=== PATIENT | male | born 1940 | race Caucasian/White ===

== ENCOUNTER → 2016-10-29 | Outpatient (CLI) | payer MEDICARE, OTHER ==
[~2016-10-29] MED LIST: ASPCH81X PO; ATOR80TA PO; DOXY25TA7 PO; FERR325T74 PO; HYDR-4380 PO; IBUP-103 PO; INSUINJ4 SQ; LISI-725 PO; METF-384 PO; MISCTAB78 PO; MULTCHW PO; NTRGSL/4 UT; NVLGI SC; OMEGCAP2 PO; OMEP20CA9 PO; VITA400C28 PO
[2016-10-29 17:45] LABS: BASO % 0.3 %; BASO ABS # 0.02 K/uL (0-0.2); COMPLETE YES; EOS % 2.8 %; HEMATOCRIT 40.2 % (42-52); IG% 0.2 %; LYMPH % 29.7 %; LYMPH ABS # 1.79 K/uL (1.2-3.4); MEAN CELL VOLUME 93.3 fL (80-100); MEAN CORPUSCULAR HEMOGLOBIN 31.1 pg (25-34); MEAN CORPUSCULAR HGB CONC 33.3 g/dl (32-36); MEAN PLATELET VOLUME 10.3 fL (7.4-10.4); MONO % 5.6 %; NEUT % 61.4 %; PLATELET COUNT 140 K/uL (130-400); RED BLOOD COUNT 4.31 M/uL (4.7-6.1); WHITE BLOOD COUNT 6.03 K/uL (4.8-10.8)
[2016-10-29 18:14] LABS: BLOOD UREA NITROGEN 21 mg/dl (7-18); BUN/CREATININE RATIO 20.6 (10-20); CALCIUM 9.1 mg/dl (8.5-10.1); CARBON DIOXIDE 29 mmol/L (21-32); CHLORIDE 108 mmol/L (98-107); GLUCOSE 113 mg/dl (70-99); POTASSIUM 4.5 mmol/L (3.5-5.1); SODIUM 143 mmol/L (136-145)
[2016-10-29 18:21] LABS: % FREE PSA 24.7 %; FREE PSA 2.09 ng/ml
[2016-10-30 06:20] LABS: ESTIMATED AVERAGE GLUCOSE 154 mg/dl; HA1C FLAG Normal (Normal)
--- NOTE | 2016-11-26 10:51 | CODING QUERY MEDICAL NECESSITY ---
SUPPORTING DIAGNOSIS NEEDED Mack ALVAREZ, A supporting diagnosis is required for the test/procedure performed on this patient in order for us to be reimbursed by the patient's insurance. Please provide a supporting diagnosis for the following test/procedure listed below next to the test name along with your signature. *If there is no additional diagnosis for this patient that would support the following test/procedure please document that below next to the test/procedure. Test(s)/Procedure(s) that require a supporting diagnosis: * 28526 PSA DIAGNOSIS: DATE OF SERVICE: 10/29/16 Provider Signature: Date: Thank you Hermilo Lynch [facility] Information Management Once completed, please kindly fax back to [phone] For questions please call [phone]
== END | disposition home or self-care (01) ==
LOC: C.LABBFT 15:52
PROVIDERS: ATTEND Physician Assistant Medical
DX: N52.9 Male erectile dysfunction, unspecified (principal); E11.65 Type 2 diabetes mellitus with hyperglycemia; D64.9 Anemia, unspecified; N40.1 Benign prostatic hyperplasia with lower urinary tract symptoms

== ENCOUNTER → 2017-03-09 | Outpatient (CLI) | payer MEDICARE ==
[2017-03-10 07:49] LABS: ESTIMATED AVERAGE GLUCOSE 183 mg/dl; HA1C FLAG Normal (Normal)
== END | disposition home or self-care (01) ==
LOC: C.LABBFT 12:42
PROVIDERS: ATTEND Internal Medicine
DX: E11.65 Type 2 diabetes mellitus with hyperglycemia (principal)

== ENCOUNTER → 2017-03-25 | Outpatient (CLI) | payer MEDICARE | END | disposition home or self-care (01) | LOC: C.PATHSPEC 17:18 | PROVIDERS: ATTEND Urology | DX: R97.20 Elevated prostate specific antigen [PSA] (principal) ==

== ENCOUNTER → 2017-07-13 | Outpatient (CLI) | payer MEDICARE ==
[2017-07-13 17:52] LABS: BASO % 0.4 %; BASO ABS # 0.02 K/uL (0-0.2); COMPLETE YES; HEMATOCRIT 39.1 % (42-52); LYMPH % 38.7 %; LYMPH ABS # 2.03 K/uL (1.2-3.4); MEAN CELL VOLUME 95.8 fL (80-100); MEAN CORPUSCULAR HEMOGLOBIN 30.6 pg (25-34); MEAN PLATELET VOLUME 11.3 fL (7.4-10.4); MONO % 7.6 %; NEUT % 48.3 %; PLATELET COUNT 130 K/uL (130-400); RED BLOOD COUNT 4.08 M/uL (4.7-6.1); WHITE BLOOD COUNT 5.25 K/uL (4.8-10.8)
[2017-07-13 18:05] LABS: ALT/SGPT 42 U/L (12-78); AST/SGOT 31 U/L (15-37); BLOOD UREA NITROGEN 20 mg/dl (7-18); BUN/CREATININE RATIO 20.1 (10-20); CALCIUM 9.1 mg/dl (8.5-10.1); CARBON DIOXIDE 28 mmol/L (21-32); CHLORIDE 106 mmol/L (98-107); CREATININE 0.98 mg/dl (0.60-1.40); GLUCOSE 103 mg/dl (70-99); HDL CHOLESTEROL 49 mg/dl; SODIUM 139 mmol/L (136-145)
[2017-07-13 18:07] LABS: ALB/GLOB RATIO 1.1 (0.9-2); ALKALINE PHOSPHATASE 57 U/L (45-117); CHOLESTEROL 113 mg/dl (0-200); CHOLESTEROL/HDL RATIO 2.3; LDL CHOLESTEROL CALCULATED 44 mg/dl; TRIGLYCERIDES 99 mg/dl (0-150); VERY LOW DENSITY LIPOPROT CALC 20 mg/dl
[2017-07-13 18:36] LABS: RATIO 22.6 mcg/mg (0-30.0)
[2017-07-14 06:37] LABS: ESTIMATED AVERAGE GLUCOSE 151 mg/dl; HA1C FLAG Normal (Normal)
== END | disposition home or self-care (01) ==
LOC: C.LABBFT 11:47
PROVIDERS: ATTEND Internal Medicine
DX: E78.5 Hyperlipidemia, unspecified (principal); E11.65 Type 2 diabetes mellitus with hyperglycemia

== ENCOUNTER → 2017-10-12 | Day surgery (SDC) | payer MEDICARE ==
[2017-09-17 15:22] VITALS: Ht 181.6 cm; Wt 90.9 kg
[~2017-10-12] VITALS: Ht 181.6 cm; Wt 90.9 kg
[~2017-10-12] MED LIST changes: +ATEN-175 PO; -ATOR80TA PO; +BIMA0.01 OPB; +BRIM0.1S OPB; +BRIMONIDINE TART 0.2% OP SOLN PER DROP CHARGE OPR ONE; +BRIMONIDINE TARTRATE 0.2% 5ML OP SCH; +BRIMONIDINE TARTRATE 0.2% 5ML OPR SCH; +DORZ1SOL6 OPB; -DOXY25TA7 PO; +FERR1TAB13 PO; -FERR325T74 PO; -IBUP-103 PO; +INSDGI SC; +INSU100I2 SC; -INSUINJ4 SQ; -NVLGI SC; +PILOCARPINE HCL 2% OP SOLN 15 ML BTL ONE; +PILOCARPINE HCL 2% OP SOLN 15 ML BTL OPR SCH; +PROPARACAINE 0.5% OP SOLN PER DROP CHARGE ONE; +PROPARACAINE 0.5% OP SOLN PER DROP CHARGE OPR SCH; +PrednisoLONE ACET 1% OP SUSP 5 ML BTL OP SCH; +PrednisoLONE ACET 1% OP SUSP 5 ML BTL OPR ONE; +ROSU40TA PO; +SILD100T PO; +TERA1CAP PO
[2017-10-12 11:30] VITALS: BP 164/76; PULSE 50; O2SAT 99
--- NOTE | 2017-10-12 11:32 | Discharge Instructions-SurgCtr ---
Discharge Instructions Date of Service Oct 12, 2017. Visit Reason for Visit: Glaucoma Right Eye Discharge Discharge Diagnosis / Problem: glaucoma, right eye Discharge Goals Goal(s): Improve disease control Activity Recommendations Activity Limitations: per Instructions/Follow-up section Anesthesia . Post Anesthesia Instructions: If you have had General Anesthesia or IV Sedation: * Do not drive today. * Resume driving when surgeon permits. * Do not make important decisions or sign legal documents today. * Call surgeon for: 1. Temperature elevations greater than 101 degrees F. 2. Uncontrollable pain. 3. Excessive bleeding. 4. Persistent nausea and vomiting. 5. Medication intolerance (nausea, vomiting or rash). * For nausea and vomiting use only clear liquids such as: tea, soda, bouillon until nausea subsides, then gradually increase diet as tolerated. * If you have any concerns or questions, call your surgeon's office. If physician is unavailable and it is an emergency, call 911 or go to the nearest emergency room. . Instructions / Follow-Up Instructions / Follow-Up ACTIVITY RECOMMENDATIONS: * No limitations RETURN TO SCHOOL/WORK: * No limitations DIET: * No limitations MEDICATIONS: Resume previous medications unless instructed otherwise by your surgeon. * Please use Prednisolone acetate drops prescription given to you at your office appointment as follows: 1 drop in effected eye 4 times a day for 5 days. * Continue all glaucoma drops as usual with no interruption to either eye. SPECIAL CARE INSTRUCTIONS: Call your doctor at with any concerns or problems. FOLLOW UP VISIT: Follow-up with Dr Ortiz in 1 hour. Diet Recommendations Home Diet: resume previous diet Pending Studies Studies pending at discharge: no Medical Emergencies . Who to Call and When: Medical Emergencies: If at any time you feel your situation is an emergency, please call 911 immediately. . Non-Emergent Contact Non-Emergency issues call your: [employer] . . "Provider Documentation" section prepared by Abner Ortiz. .
--- NOTE | 2017-10-12 11:34 | [facility] Operative Report ---
Operative Report Date of Service Oct 12, 2017. Operative Report Diagnosis: Glaucoma right eye Procedure : SLT superior 180 degrees, 1.3 mj, 77 spots Complications: none I attest to the content of the Intraoperative Record and any orders documented therein. Any exceptions are noted below.
== END | disposition home or self-care (01) ==
LOC: X.SURG 10:23
PROVIDERS: ATTEND Ophthalmology
DX: H40.9 Unspecified glaucoma (principal)

== ENCOUNTER → 2018-04-04 | Outpatient (CLI) | payer MEDICARE ==
[~2018-04-04] MED LIST changes: -BRIMONIDINE TART 0.2% OP SOLN PER DROP CHARGE OPR ONE; -BRIMONIDINE TARTRATE 0.2% 5ML OP SCH; -BRIMONIDINE TARTRATE 0.2% 5ML OPR SCH; -PILOCARPINE HCL 2% OP SOLN 15 ML BTL ONE; -PILOCARPINE HCL 2% OP SOLN 15 ML BTL OPR SCH; -PROPARACAINE 0.5% OP SOLN PER DROP CHARGE ONE; -PROPARACAINE 0.5% OP SOLN PER DROP CHARGE OPR SCH; -PrednisoLONE ACET 1% OP SUSP 5 ML BTL OP SCH; -PrednisoLONE ACET 1% OP SUSP 5 ML BTL OPR ONE
== END | disposition home or self-care (01) ==
LOC: C.LABBFT 11:18
PROVIDERS: ATTEND Urology
DX: R97.20 Elevated prostate specific antigen [PSA] (principal)

== ENCOUNTER 2019-05-13 10:44 | Observation (INO) ==
--- NOTE | 2019-05-13 11:20 | XRay Report ---
XR chest 1V portable HISTORY: Atypical Chest Pain COMPARISON: Chest 03/29/2014. FINDINGS: No pneumothorax. No pleural effusions. Left basilar linear densities favor scarring or atel ectasis. Otherwise, no focal lung consolidations to suggest pneumonia. The heart remains borderline e nlarged. There are poststernotomy changes. No evidence for pulmonary edema. IMPRESSION: No significant change compared to the prior study. No acute process. Electronically signed by: Kvng Armando M.D. 05/13/2019 11:19 AM
[2019-05-13 11:41] LABS: INR 1.1 (0.9-1.1); Partial Thromboplastin Ratio 0.9; Partial Thromboplastin Time 24.5 Seconds (21.0-31.0); Prothrombin Time 11.3 Seconds (9.0-12.0)
[2019-05-13 11:42] LABS: Alanine Aminotransferase 45 U/L (12-78); Albumin Level 3.6 gm/dl (3.4-5.0); Aspartate Aminotransferase 51 U/L (15-37); BUN Creatinine Ratio 11.7 (10-20); Blood Urea Nitrogen 13 mg/dl (7-18); Carbon Dioxide 27 mmol/L (21-32); Chloride 105 mmol/L (98-107); Est GFR (Non-African American) 65.6; Glucose 290 mg/dl (70-99); Potassium 3.9 mmol/L (3.5-5.1); Sodium 138 mmol/L (136-145)
[2019-05-13 11:47] LABS: Albumin Globulin Ratio 1.2 (0.9-2); Alkaline Phosphatase 60 U/L (45-117); Bilirubin,Total 0.5 mg/dl (0.2-1); Total Protein 6.6 gm/dl (6.4-8.2); Troponin I 0.025 ng/ml (0-0.045)
[2019-05-13] MEDS ORDERED: NITROGLYCERIN 2% OINTMENT 30GM TUBE EXT ONE (11:55)
[2019-05-13 12:13] LABS: Basophils # (auto) 0.01 K/uL (0-0.2); Basophils % (auto) 0.2 %; Eosinophils # (auto) 0.07 K/uL (0-0.5); Eosinophils % (auto) 1.7 %; Hematocrit (blood only) 32.8 % (42-52); Lymphocytes # (auto) 0.77 K/uL (1.2-3.4); Lymphocytes % (auto) 18.9 %; Mean Corpuscular Hemoglobin 31.1 pg (25-34); Mean Corpuscular Hgb Conc 33.5 g/dL (32-36); Mean Corpuscular Volume 92.7 fL (80-100); Monocytes # (auto) 0.32 K/uL (0.11-0.59); Monocytes % (auto) 7.9 %; Neutrophils % (auto) 71.3 %; Platelet Count 97 K/uL (130-400); Platelet Estimate Decreased (Normal); RDW Coefficient of Variation 13.1 % (11.5-14.5); RDW Standard Deviation 44.3 fL (36.4-46.3); Red Blood Count 3.54 M/uL (4.7-6.1); White Blood Count 4.07 K/uL (4.8-10.8)
[2019-05-13] MEDS ORDERED: ASPIRIN 81 MG CHEW PO STA (13:07)
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
[2019-05-13] MEDS ORDERED: ZOLPIDEM TARTRATE 5 MG TAB PO PRN (14:23)
[2019-05-13] MEDS ORDERED: POLYETHYLENE (MIRALAX) 17 GM PACK PO PRN (14:23)
[2019-05-13] MEDS ORDERED: GLUCAGON FOR INJ 1 MG VIAL SQ PRN (14:23)
[2019-05-13] MEDS ORDERED: DEXTROSE 50% 50 ML SYRINGE IV PRN (14:23)
[2019-05-13] MEDS ORDERED: ALUMINUM/MAGNESIUM SUSP 30 ML UDC PO PRN (14:23)
[2019-05-13] MEDS ORDERED: NITROGLYCERIN SL 0.4 MG/TAB TAB SL PRN (14:23)
[2019-05-13] MEDS ORDERED: INSULIN LISPRO SQ SCH (14:23)
[2019-05-13] MEDS ORDERED: ACETAMINOPHEN 325 MG TAB PO PRN (14:23)
[2019-05-13] MEDS ORDERED: MAGNESIUM HYDROXIDE SUSP 30 ML UDC PO PRN (14:23)
[2019-05-13] MEDS ORDERED: GLUCOSE 10 TABS/TUBE PO PRN (14:23)
[2019-05-13] MEDS ORDERED: CARBOHYDRATES FOR HYPOGLYCEMIA PO PRN (14:23)
[2019-05-13] MEDS ORDERED: GLUCOSE 40% GEL 15 GM TUBE PO PRN (14:23)
[2019-05-13] MEDS ORDERED: PATIENT'S HEIGHT AND/OR WEIGHT NEEDED SCH (15:00)
[2019-05-13] MEDS ORDERED: PHARMACY GLYCEMIC MGMT CONSULT PRN (15:05)
[2019-05-13] MEDS: INSULIN ASPART 100 UNITS/ML 3 ML PEN SC SCH ×2 (16:59→20:55)
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
[2019-05-13] MEDS: BIMATOPROST 0.01% OP SOLN 2.5 ML BTL OP SCH (20:53)
[2019-05-13] MEDS: DORZOLAMIDE/TIMOLOL 22.3/6.8MG/ML 10 ML BTL OP SCH (20:53)
[2019-05-13] MEDS: TERAZOSIN HCL 1 MG CAP PO SCH (20:54)
[2019-05-13] MEDS: PANTOprazole 40 MG TAB PO SCH (20:54)
[2019-05-13] MEDS: TAMSULOSIN HCL 0.4 MG CAP PO SCH (20:54)
[2019-05-13] MEDS: ROSUVASTATIN CALCIUM 20 MG TAB PO SCH (20:54)
[2019-05-13] MEDS: lisinopriL 20 MG TAB PO SCH (20:54)
[2019-05-13] MEDS ORDERED: BRIMONIDINE OP SCH (21:00)
[2019-05-13] MEDS ORDERED: NON-FORMULARY MEDICATION (Glucosamine-Chondroitin [Osteo Bi-Flex] 1 TAB) PO SCH (21:00)
[2019-05-14] MEDS: INSULIN ASPART 100 UNITS/ML 3 ML PEN SC SCH ×6 (03:59→20:37)
[2019-05-14 06:00] LABS: Hematocrit (blood only) 34.1 % (42-52); Hemoglobin 11.3 g/dL (14.0-18.0); Mean Corpuscular Hemoglobin 30.6 pg (25-34); Mean Corpuscular Hgb Conc 33.1 g/dL (32-36); Mean Corpuscular Volume 92.4 fL (80-100); RDW Coefficient of Variation 13.2 % (11.5-14.5); RDW Standard Deviation 44.2 fL (36.4-46.3); Red Blood Count 3.69 M/uL (4.7-6.1); White Blood Count 6.15 K/uL (4.8-10.8)
[2019-05-14 06:04] LABS: Mean Platelet Volume 9.8 fL (7.4-10.4); Platelet Count 93 K/uL (130-400)
[2019-05-14 06:20] LABS: Basophils # (auto) 0.01 K/uL (0-0.2); Basophils % (auto) 0.2 %; Eosinophils # (auto) 0.08 K/uL (0-0.5); Eosinophils % (auto) 1.3 %; Immature Granulocytes # (auto) 0.01 K/uL (0.00-0.02); Immature Granulocytes % (auto) 0.2 %; Lymphocytes # (auto) 1.12 K/uL (1.2-3.4); Lymphocytes % (auto) 18.2 %; Monocytes % (auto) 8.1 %; Neutrophils # (auto) 4.43 K/uL (1.4-6.5); Ovalocytes 1+
[2019-05-14 06:29] LABS: Albumin Level 3.5 gm/dl (3.4-5.0); Calcium 8.9 mg/dl (8.5-10.1); Creatinine Clr Calc Pharmacy 66.2 ml/min; Est GFR (African American) 86.5; Est GFR (Non-African American) 74.6; Potassium 4.1 mmol/L (3.5-5.1)
[2019-05-14 06:34] LABS: Albumin Globulin Ratio 1.1 (0.9-2); Bilirubin,Total 0.5 mg/dl (0.2-1); Globulin 3.2 gm/dl (2.5-4.0); Total Protein 6.7 gm/dl (6.4-8.2); Troponin I 0.018 ng/ml (0-0.045)
[2019-05-14] MEDS: DORZOLAMIDE/TIMOLOL 22.3/6.8MG/ML 10 ML BTL OP SCH ×2 (07:53→20:56)
[2019-05-14] MEDS: OMEGA-3 (PURIFIED FISH OIL) 1 GM CAP PO SCH (07:54)
[2019-05-14] MEDS: lisinopriL 20 MG TAB PO SCH ×2 (07:54→20:55)
[2019-05-14] MEDS: TOCOPHERYL, DL-ALPHA 400 UNITS CAP PO SCH (07:54)
[2019-05-14] MEDS: INSULIN GLARGINE SOLOSTAR 100 UNITS/ML 3 ML PEN SC SCH (07:55)
[2019-05-14] MEDS: CEROVITE ADV FORMULA TAB PO SCH (07:55)
[2019-05-14] MEDS: FERROUS SULFATE 325 MG TAB PO SCH (07:55)
[2019-05-14] MEDS: ASPIRIN 81 MG ECTAB PO SCH (07:55)
[2019-05-14] MEDS ORDERED: ATENOLOL 50 MG TABLET PO SCH (09:00)
[2019-05-14] MEDS ORDERED: LANTUS PER UNIT CHARGE SQ SCH (09:00)
--- NOTE | 2019-05-14 09:23 | Hospitalist Progress Note ---
Date of Service May 14, 2019 Assessment & Plan (1) Exertional chest pain: Continue admit to PCU on telemetry for observation for chest pain Vital signs every 4 hours Troponin x3 negative TTE :shows ejection fraction 60 to 65%. There is a moderate concentric left ventricular hypertrophy. The apical impulse septum is hypokinetic. Septal motion is consistent with postoperative state. The aortic valve is moderately calcified. Aortic stenosis is absent. Mild aortic regurgitation. There is a mild tricuspid regurgitation Doppler did not suggest pulmonary hypertension. Appreciate cardiology recommendations Dr. Lucas: Recommended dobutamine stress test to evaluate chest discomfort. Recommended addition of amlodipine 2.5 daily to improve blood pressure control. Hold atenolol in a.m. and give after dobutamine stress test. Keep n.p.o. after midnight for the dobutamine stress test. Continue Nitropaste Monitor electrolytes and replenish as needed DVT prophylaxis : Lovenox 40 mg SC daily , Plt-s 93. No bruises noted or ecchymosis, she denies hemoptysis, hematuria, melena SCDs with brielle-s bilaterally for DVT prophylaxis Full code (2) Coronary artery disease involving coronary bypass graft: Continue home medicine for coronary artery disease and hypertension. Continue aspirin 81 mg p.o. every morning, hold atenolol 100 mg p.o. every morning only tomorrow AM for the procedure, but continuing the afternoon after stress test is done (3) Prostate cancer: In remission. Continue following up with urologist . Continue home medicine tamsulosin 0.4 mg p.o. every 24 hours, Terazosin 1 mg p.o. nightly. (4) Diabetes mellitus type 2 in obese: Continue home medicine insulin lispro, Lantus. Accu-Cheks before meals and at bedtime. Managed by pharmacy and adjust insulin with as per patient needs. Hold metformin while patient is in the hospital due to possible need of procedures and to prevent hypoglycemia. (5) Thrombocytopenia: Not clear origin. Platelets 97 which is much lower than in comparison to previous visits. Will do blood smear. (6) Anemia: Appears to be anemia of chronic disease, continue iron sulfate, multivitamins, vitamin E Subjective Patient is seen and examined at the bedside. He said that history of chest pain is improved. This morning he had echocardiogram done which shows ejection fraction 60 to 65%. There is a moderate concentric left ventricular hypertrophy. The apical impulse septum is hypokinetic. Septal motion is consistent with postoperative state. The aortic valve is moderately calcified. Aortic stenosis is absent. Mild aortic regurgitation. There is a mild tricuspid regurgitation Doppler did not suggest pulmonary hypertension. Patient reports good p.o. intake. His troponin overnight was negative. Patient denies fever chills, chest pain, shortness of breath, abdominal pain, frequency, urgency, hemoptysis, dysuria, heme hematuria. Cardiology is consulted and it is recommended dobutamine stress echocardiography for further evaluation of chest discomfort. Review of Systems Review of Systems: All systems reviewed & are unremarkable except as noted in HPI & below Physical Exam Constitutional: WD/WN, vitals as above well developed and + obese Eyes: PERRL, conjunctivae normal, anicteric sclerae ENMT: external ear and nose normal, oropharynx normal Neck: trachea midline, no thyromegaly Respiratory: normal respiratory effort, lungs clear to auscultation Cardiovascular: RRR, no murmur, no edema Vessels: dorsalis pedis pulses present Chest (Breasts): normal inspection/palpation of breasts Gastrointestinal (Abdomen): normal bowel sounds, soft, nontender, no hepatosplenomegaly Musculoskeletal: no cyanosis or clubbing, extremities motor strength 5/5 Skin: no rashes, warm and dry Neurologic: patellar DTR's 2+ bilat, sensation intact Psychiatric: A+Ox3, euthymic affect Lymphatic: no cervical or axillary lymphadenopathy Results & Data Vital Signs (Past 12 Hours) Vital Signs Temp Pulse Pulse Resp BP Pulse Ox 05/14/19 08:06 37.1 C 64 18 164/70 H 94 05/14/19 08:00 66 05/14/19 07:05 36.9 C 66 16 160/72 H 95 05/14/19 03:51 36.7 C 71 16 162/79 H 95 05/14/19 00:00 63 05/13/19 23:22 36.7 C 61 16 150/66 H 95 PG Care Time/CCT Total # of Minutes Spent Total Time Spent with Patient: Total time spent is greater than 50% in coordination of care (as documented) at patient's floor/unit and/or counseling patient: (1) Anemia Anemia type: unspecified type Qualified Code(s): D64.9 - Anemia, unspecified
--- NOTE | 2019-05-14 10:33 | Pharmacy Report ---
Pharmacy Glycemic Short Note 2 - Date of Service May 14, 2019 - Glycemic Short BSG Results (Last 24 hours): 05/13/19 05/13/19 05/13/19 11:11 20:32 23:53 Glucose 290 H POC Glucose 186 H 134 H 05/14/19 05/14/19 05/14/19 03:55 05:35 07:21 Glucose 176 H POC Glucose 162 H 176 H OUTPATIENT ANTIDIABETIC REGIMEN: * Lantus 60 units SQ qAM + Lispro + metformin 1000 mg Po BID * A1c 9.8 % (10/10/18) - repeat pending ASSESSMENT: * 78 yr old T2DM male admitted with chest pain. * A1c from September indicates poor outpatient control. * Patient received a total of 78 units of insulin yesterday (of note, this was a partial days usage) * Fasting BSG of 176 mg/dL is above goal, therefore I will increase Lantus. * Post prandial BSGs have greatly improved but remain mostly above goal. Will tighten Novolog CF and CR (will base on ~100 units/day) PLAN FOR INPATIENT GLYCEMIC CONTROL: * Hold outpatient oral diabetes medications * Basal insulin * Lantus SQ qAM per scale: -60 units for BSG < 140 mg/dL -70 units for BSG 140 mg/dL or more * Extra 10 units ordered for HS if BSG is 180 mg/dL or more * Bolus insulin - tighten * NovoLog per scale ACHS or Q6hrs while NPO * Goal Range: Low 120 mg/dL - High 150 mg/dL * Correction Factor: 15 mg/dL/unit * Nutritional / Prandial insulin per carb ratio of 1 unit per 5 grams CHO consumed PLAN FOR DISCHARGE: * pending A1c
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
[2019-05-14] MEDS: AMLODIPINE BESYLATE 5 MG TAB PO SCH (12:13)
[2019-05-14] MEDS ORDERED: ENOXAPARIN INJ 40 MG/0.4 ML SYR SQ SCH (19:00)
[2019-05-14] MEDS: TAMSULOSIN HCL 0.4 MG CAP PO SCH (20:55)
[2019-05-14] MEDS: TERAZOSIN HCL 1 MG CAP PO SCH (20:55)
[2019-05-14] MEDS: ROSUVASTATIN CALCIUM 20 MG TAB PO SCH (20:55)
[2019-05-14] MEDS: PANTOprazole 40 MG TAB PO SCH (20:56)
[2019-05-14] MEDS: BIMATOPROST 0.01% OP SOLN 2.5 ML BTL OP SCH (20:56)
[2019-05-14] MEDS ORDERED: INSULIN GLARGINE SOLOSTAR 100 UNITS/ML 3 ML PEN SC SCH (21:00)
[2019-05-15 05:46] LABS: Basophils # (auto) 0.02 K/uL (0-0.2); Basophils % (auto) 0.3 %; Eosinophils # (auto) 0.14 K/uL (0-0.5); Eosinophils % (auto) 2.3 %; Hematocrit (blood only) 36.2 % (42-52); Hemoglobin 12.2 g/dL (14.0-18.0); Lymphocytes # (auto) 1.74 K/uL (1.2-3.4); Mean Corpuscular Hemoglobin 31.4 pg (25-34); Mean Corpuscular Hgb Conc 33.7 g/dL (32-36); Mean Corpuscular Volume 93.3 fL (80-100); Mean Platelet Volume 10.2 fL (7.4-10.4); Neutrophils # (auto) 3.82 K/uL (1.4-6.5); Neutrophils % (auto) 61.4 %; Platelet Count 113 K/uL (130-400); RDW Coefficient of Variation 13.1 % (11.5-14.5); RDW Standard Deviation 44.5 fL (36.4-46.3); Red Blood Count 3.88 M/uL (4.7-6.1); White Blood Count 6.22 K/uL (4.8-10.8)
[2019-05-15 06:16] LABS: Albumin Level 3.5 gm/dl (3.4-5.0); BUN Creatinine Ratio 14.3 (10-20); Calcium 9.4 mg/dl (8.5-10.1); Creatinine Clr Calc Pharmacy 53.2 ml/min; Est GFR (African American) 66.3; Est GFR (Non-African American) 57.2
[2019-05-15 06:19] LABS: Bilirubin,Total 0.5 mg/dl (0.2-1); Globulin 3.5 gm/dl (2.5-4.0)
[2019-05-15 07:14] LABS: Estimated Average Glucose 229 mg/dl; Hemoglobin A1C 9.6 % (4.5-5.6)
[2019-05-15] MEDS: ASPIRIN 81 MG ECTAB PO SCH (07:30)
[2019-05-15] MEDS: CEROVITE ADV FORMULA TAB PO SCH (07:30)
[2019-05-15] MEDS: FERROUS SULFATE 325 MG TAB PO SCH (07:31)
[2019-05-15] MEDS: OMEGA-3 (PURIFIED FISH OIL) 1 GM CAP PO SCH (07:31)
[2019-05-15] MEDS: lisinopriL 20 MG TAB PO SCH (07:31)
[2019-05-15] MEDS: AMLODIPINE BESYLATE 5 MG TAB PO SCH (07:31)
[2019-05-15] MEDS: TOCOPHERYL, DL-ALPHA 400 UNITS CAP PO SCH (07:32)
[2019-05-15] MEDS: DORZOLAMIDE/TIMOLOL 22.3/6.8MG/ML 10 ML BTL OP SCH (07:32)
[2019-05-15] MEDS: INSULIN ASPART 100 UNITS/ML 3 ML PEN SC SCH ×2 (07:35→12:06)
[2019-05-15] MEDS ORDERED: METOPROLOL TARTRATE 1 MG/ML VIAL IV ONE (08:30)
[2019-05-15] MEDS ORDERED: ATROPINE SULFATE 0.1 MG/ML 10ML SYR IV ONE (08:30)
[2019-05-15] MEDS ORDERED: DOBUTamine HCL 12.5 MG/ML 20 ML VIAL IV ONE (08:31)
--- NOTE | 2019-05-15 09:20 | Cardiology Progress Note ---
Date of Service May 15, 2019 Assessment & Plan (1) Chest pain: (2) Abnormal EKG: (3) CAD (coronary artery disease), [place] coronary artery: (4) Diabetes mellitus type 2 in obese: (5) PVD (peripheral vascular disease): (6) Thrombocytopenia: (7) HTN (hypertension): Dobutamine stress echo negative for inducible ischemia with chest discomfort reported at nearly 100% of the maximal age-predicted heart rate. Discomfort relieved with beta-irving therapy. No regional wall motion a bnormalities visualized. A.m. dose of atenolol ordered, 100 mg. I will transition patient from amlodipine to isosorbide monohydrate. Recommend outpatient 14-day ZIO monitor for further evaluation of tachypalpitations with associated chest discomfort. Other medications will be continued as previously ordered. Close cardiology follow-up in 1 to 2 weeks. Subjective Patient seen and examined. Debridement stress echo negative for inducible ischemia. Reproduction of chest discomfort at peak heart rate noted. No regional wall motion abnormalities to suggest ischemia. Patient pain-free at the end of stress testing. He reports tachypalpitations at the time of chest pain prior to admission. Otherwise feeling well today. A.m. atenolol has not been given due to dobutamine stress echo. He offers no other concerns/complaints this time. Review of Systems Review of Systems: All systems reviewed & are unremarkable except as noted in HPI & below Physical Exam Physical Exam: General: NAD, AAO x3, well nourished. HEENT: Normocephalic. Atraumatic. Conjunctiva pink, no scleral icterus. Neck: No carotid bruits, the carotid upstrokes are brisk. No JVD. No HJR Heart: Regular normal S-1 and S-2 no S-3 or S-4 gallop. Soft, 1/6 systolic murmur heard best left sternal border without radiation. PMI is not displaced. No RV heave. Lungs: Clear bilateral without rales , rhonchi, or wheeze. Abdomen: Normal bowel sounds. Soft. Nontender. No masses or organomegaly. No abdominal bruits. Extremities: No clubbing, cyanosis, or edema. Pulses: radial=2/4, Dorsalis pedis =2/4, posterior tibial=2/4. Neuro: Cranial nerves grossly intact. No focal motor deficit. Results & Data Vital Signs (Past 12 Hours) Vital Signs Temp Pulse Pulse Pulse Resp BP BP 05/15/19 07:12 36.9 C 57 L 18 110/70 05/15/19 03:49 36.8 C 57 L 15 113/69 05/15/19 00:43 53 L 05/14/19 23:18 36.7 C 59 L 18 166/70 H Pulse Ox 05/15/19 07:12 95 05/15/19 03:49 95 05/15/19 00:43 05/14/19 23:18 95 Laboratory Results Laboratory Results - last 24 hr 05/14/19 05/14/19 05/14/19 05:35 10:46 11:15 WBC RBC Hgb Hct MCV MCH MCHC RDW Std Deviation RDW Coeff of Ilene Plt Count MPV Immature Gran % (Auto) Neut % (Auto) Lymph % (Auto) [place] % (Auto) Eos % (Auto) Baso % (Auto) Immature Gran # (Auto) Neut # (Auto) Lymph # (Auto) [place] # (Auto) Eos # (Auto) Baso # (Auto) Sodium Potassium Chloride Carbon Dioxide Anion Gap BUN Creatinine Est Cr Clr Drug Dosing Est GFR ( Amer) Est GFR (Non-Af Amer) BUN/Creatinine Ratio Glucose POC Glucose 224 H Estimat Average Glucose 229 Hemoglobin A1c 9.6 H Calcium Total Bilirubin AST ALT Alkaline Phosphatase Troponin I < 0.015 Total Protein Albumin Globulin Albumin/Globulin Ratio 05/14/19 05/14/19 05/15/19 16:22 20:35 05:28 WBC 6.22 RBC 3.88 L Hgb 12.2 L Hct 36.2 L MCV 93.3 MCH 31.4 MCHC 33.7 RDW Std Deviation 44.5 RDW Coeff of Ilene 13.1 Plt Count 113 L MPV 10.2 Immature Gran % (Auto) 0.0 Neut % (Auto) 61.4 Lymph % (Auto) 28.0 [place] % (Auto) 8.0 Eos % (Auto) 2.3 Baso % (Auto) 0.3 Immature Gran # (Auto) 0.00 Neut # (Auto) 3.82 Lymph # (Auto) 1.74 [place] # (Auto) 0.50 Eos # (Auto) 0.14 Baso # (Auto) 0.02 Sodium Potassium Chloride Carbon Dioxide Anion Gap BUN Creatinine Est Cr Clr Drug Dosing Est GFR ( Amer) Est GFR (Non-Af Amer) BUN/Creatinine Ratio Glucose POC Glucose 195 H 127 H Estimat Average Glucose Hemoglobin A1c Calcium Total Bilirubin AST ALT Alkaline Phosphatase Troponin I Total Protein Albumin Globulin Albumin/Globulin Ratio 05/15/19 05/15/19 05:28 06:51 WBC RBC Hgb Hct MCV MCH MCHC RDW Std Deviation RDW Coeff of Ilene Plt Count MPV Immature Gran % (Auto) Neut % (Auto) Lymph % (Auto) [place] % (Auto) Eos % (Auto) Baso % (Auto) Immature Gran # (Auto) Neut # (Auto) Lymph # (Auto) [place] # (Auto) Eos # (Auto) Baso # (Auto) Sodium 139 Potassium 4.0 Chloride 103 Carbon Dioxide 27 Anion Gap 9.0 BUN 17 Creatinine 1.22 Est Cr Clr Drug Dosing 53.2 Est GFR ( Amer) 66.3 Est GFR (Non-Af Amer) 57.2 BUN/Creatinine Ratio 14.3 Glucose 197 H POC Glucose 193 H Estimat Average Glucose Hemoglobin A1c Calcium 9.4 Total Bilirubin 0.5 AST 47 H ALT 47 Alkaline Phosphatase 57 Troponin I Total Protein 7.0 Albumin 3.5 Globulin 3.5 Albumin/Globulin Ratio 1.0 (1) Chest pain Chest pain type: other chest pain Qualified Code(s): R07.89 - Other chest pain; R07.8 - Other chest pain (2) HTN (hypertension) Hypertension type: essential hypertension Qualified Code(s): I10 - Essential (primary) hypertension
[2019-05-15] MEDS ORDERED: ATENOLOL 50 MG TABLET PO SCH (10:00)
[2019-05-15] MEDS ORDERED: ISOSORBIDE MONO EXTENDED REL 30 MG TABCR PO SCH (10:00)
[2019-05-15] MEDS: INSULIN GLARGINE SOLOSTAR 100 UNITS/ML 3 ML PEN SC SCH (10:09)
[2019-05-15 11:21] VITALS: TEMP 97.9
--- NOTE | 2019-05-15 11:57 | Pharmacy Report ---
Pharmacy Glycemic Short Note 2 - Date of Service May 15, 2019 - Glycemic Short BSG Results (Last 24 hours): 05/14/19 05/14/19 05/15/19 16:22 20:35 05:28 Glucose 197 H POC Glucose 195 H 127 H 05/15/19 05/15/19 06:51 10:02 Glucose POC Glucose 193 H 208 H OUTPATIENT ANTIDIABETIC REGIMEN: * Lantus 60 units SQ qAM + Lispro + metformin 1000 mg PO BID * A1c 9.6 % (05/14/19) ASSESSMENT: * 78 yr old T2DM male admitted with chest pain. * A1c indicates poor outpatient control. * Patient received a total of 104 units of insulin yesterday (60 of which were basal) * Fasting BSG of 193 mg/dL is above goal, Lantus increased today based on elevated fasting BSG. * BSGs ranging 127-224 mg/dL over past 24 hours * Patient was NOT covered for carbs at breakfast this morning (was given breakfast tray after dopamine stress echo this AM) * Won't overreact to lunch BSG of 235 mg/dL, especially given increased Lantus dose today PLAN FOR INPATIENT GLYCEMIC CONTROL: * Hold outpatient oral diabetes medications * Basal insulin * Lantus SQ qAM this per scale: - Patient received 70 units based on BSG of 193 (>140 mg/dL) * Bolus insulin - continue current parameters * NovoLog per scale ACHS or Q6hrs while NPO * Goal Range: Low 120 mg/dL - High 150 mg/dL * Correction Factor: 15 mg/dL/unit * Nutritional / Prandial insulin per carb ratio of 1 unit per 5 grams CHO consumed PLAN FOR DISCHARGE: * Poor outpatient control with current regimen given A1c of 9.6%. Reasonable to consider home metformin 1 gm PO BIDM. Currently titrating insulin - will make recommendation regarding outpatient insulin dosing once adequate glycemic control is achieved. Estimating a basal dose of at least 70 units.
--- NOTE | 2019-05-15 14:10 | Discharge Summary ---
Date of Service May 15, 2019 Admission HPI Per Admitting Provider Patient is a 78 years old male with past medical history of coronary artery disease, S/P resection of prostate cancer and radiation, CABG 25 years ago, peripheral vascular disease history of cancer of true vocal cords, status post CVA, status post femoral-popliteal bowel bypass surgery, former smoker who presents to the emergency room with a complaint of left-sided chest pain that started last night and it was worsening in the morning. Patient reports that this morning when he woke up chest pain was so severe that he had to sit down and he was sweating. Per patient report chest pain lasted for more than 30 minutes and it was still present when he arrived in the emergency room. To alleviate the pain patient took 2 nitroglycerin but that did not help. This morning patient took all of his pills including an aspirin 81 atenolol 100 mg and insulin. Patient reports that this morning his glycemic control was somewhat elevated to 250+ and he took his insulin. Patient denies fever, chills , shortness of breath, abdominal pain, frequency, urgency, hematemesis, syncope, near syncope, melena, nausea, vomiting, blurry vision. Labs are reviewed; viral cell 4.07, hemoglobin 11, hematocrit 32.8, platelets low unmeasurable. PT of 11.3, INR 1.1, APTT 24.5. Sodium 138, potassium 3.9, chloride 105, carbon dioxide 27, anion gap 6, BUN 13, creatinine 1.09 GFR of 65.6, AST 51, ALT 45, troponin 0.0 25. EKG: normal sinus rhythm, possible inferior infarct age undetermined.T wave inversion in V3 and flattening in V2 and V4. Decision was made to admit patient for observation on telemetry in PCU and to rule out acute coronary syndrome. Admission Exam Per Admitting Provider Constitutional: WD/WN, vitals as above well developed and + obese Eyes: PERRL, conjunctivae normal, anicteric sclerae ENMT: external ear and nose normal, oropharynx normal Neck: trachea midline, no thyromegaly Respiratory: normal respiratory effort, lungs clear to auscultation Cardiovascular: RRR, no murmur, no edema Vessels: dorsalis pedis pulses present Chest (Breasts): normal inspection/palpation of breasts Gastrointestinal (Abdomen): normal bowel sounds, soft, nontender, no hepatosplenomegaly Musculoskeletal: no cyanosis or clubbing, extremities motor strength 5/5 Skin: no rashes, warm and dry Neurologic: patellar DTR's 2+ bilat, sensation intact Psychiatric: A+Ox3, euthymic affect Lymphatic: no cervical or axillary lymphadenopathy Principal Diagnosis Chronic stable angina Type 2 diabetes Non-cardiac chest pain Discharge Exam Constitutional WD/WN, vitals as above Eyes PERRL, conjunctivae normal, anicteric sclerae ENMT external ear and nose normal, oropharynx normal Neck trachea midline, no thyromegaly Respiratory normal respiratory effort, lungs clear to auscultation Cardiovascular RRR, no murmur, no edema Chest (Breasts) normal inspection/palpation of breasts Gastrointestinal (Abdomen) normal bowel sounds, soft, nontender, no hepatosplenomegaly Musculoskeletal no cyanosis or clubbing, extremities motor strength 5/5 Skin no rashes, warm and dry Neurologic awake; no focal motor deficits and not confused Psychiatric A+Ox3, euthymic affect Lymphatic no cervical or axillary lymphadenopathy Discharge Data Allergies Allergy/AdvReac Type Severity Reaction Status Date / Time clopidogrel Allergy Intermediate HIVES Verified 05/16/19 13:49 clarithromycin Allergy Mild UNKNOWN Verified 05/16/19 13:49 ezetimibe Allergy Mild UNKNOWN Verified 05/16/19 13:49 rosiglitazone Allergy Mild UNKNOWN Verified 05/16/19 13:49 rofecoxib Allergy Unknown UNKNOWN Verified 05/16/19 13:49 Iodinated Contrast Media AdvReac Mild SHAKY Verified 05/16/19 13:49 Consultations 05/13/19 12:40 ED Decision to Admit Stat 05/14/19 09:04 Consult Cardiology Routine Hospital Course (1) Exertional chest pain: Reviewed by cardiology and underwent negative dobutamine echocardiogram. Diagnosed with chronic angina due to coronary artery disease. To treat this and his hypertension Dr Romero started you on Imdur and will follow up in outpatient clinic. Additional resting chest pain which was more atypical of cardiac pain. This appears to have resolved and recommended following up with your PCP regarding this as no specific cause was found during this admission. You were also noted to be on two very similar medications for your prostate symptoms - terazosin and tamsulosin - recommend discussing this with your urologist at your next visit. TTE :shows ejection fraction 60 to 65%. There is a moderate concentric left ventricular hypertrophy. The apical impulse septum is hypokinetic. Septal motion is consistent with postoperative state. The aortic valve is moderately calcified. Aortic stenosis is absent. Mild aortic regurgitation. There is a mild tricuspid regurgitation Doppler did not suggest pulmonary hypertension. Appreciate cardiology recommendations Dr. Lucas: Recommended dobutamine stress test to evaluate chest discomfort. Recommended addition of amlodipine 2.5 daily to improve blood pressure control. Hold atenolol in a.m. and give after dobutamine stress test. Keep n.p.o. after midnight for the dobutamine stress test. Continue Nitropaste Monitor electrolytes and replenish as needed DVT prophylaxis : Lovenox 40 mg SC daily , Plt-s 93. No bruises noted or ecchymosis, she denies hemoptysis, hematuria, melena SCDs with brielle-s bilaterally for DVT prophylaxis Full code (2) Coronary artery disease involving coronary bypass graft: Continue home medicine for coronary artery disease and hypertension. Continue aspirin 81 mg p.o. every morning, hold atenolol 100 mg p.o. every morning only tomorrow AM for the procedure, but continuing the afternoon after stress test is done (3) Prostate cancer: In remission. Continue following up with urologist . Continue home medicine tamsulosin 0.4 mg p.o. every 24 hours, Terazosin 1 mg p.o. nightly. (4) Thrombocytopenia: Improving. (5) Anemia: Appears to be anemia of chronic disease, continue iron sulfate, multivitamins (6) Diabetes mellitus type 2, uncontrolled: HbA1C 9.6. No changes to your chronic insulin regimen has been made but recommend following up with your PCP regarding this. Total Time Total Time Spent Total Time Spent (In Minutes): 50 Total Time Includes: Examination of the Patient, Discharge Planning, Medication Reconciliation and Communication With Other Providers Discharge Plan Discharge Items Patient Disposition: Home - Self-Care Reason For Visit: CHEST PAIN Discharge Diagnosis: Chronic stable angina Type 2 diabetes Non-cardiac chest pain Condition on Discharge: Good Activity: Resume your previous activity Non-emergency contact: Primary Care Provider and K[facility] Operator Head Call non-emergency contact if: you have any medication questions Follow-up/Referrals: Jewel Everett MD [Primary Care Provider] - 05/23/19 11:10 am (Please, follow up with Dr. Everett on WednesdayMay 23 at 11:10 am. *If you need to change this appointment, call the office at [phone].) Juvencio Romero DO [K[facility]] - (1-2 weeks as per cardiology note) Diet: Heart Healthy Addtl Attending Provider Instructions: You were diagnosed with chronic angina due to coronary artery disease. To treat this and your blood pressure your blood bank laboratory technologist has started you on Imdur. Please follow up in cardiology clinic (to be arranged) in 1-2 weeks. If you do not hear from the clinic in the next 7 days please call the number above. You also had resting chest pain which was more atypical of cardiac pain. This appears to have resolved and recommend following up with your PCP regarding this as no specific cause was found during this admission. Your diabetes does not appear to be well controlled HbA1C 9.6. No changes to your chronic insulin regimen has been made but recommend following up with your PCP regarding this. You were also noted to be on two very similar medications for your prostate symptoms - terazosin and tamsulosin - recommend discussing this with your urologist at your next visit. Pending Studies at Discharge: No Stand-Alone Forms: Call Back Authorization, My [facility] Medications and DC Order Prescriptions: New isosorbide mononitrate 30 mg Tablet Extended Release 24 Hr 30 mg PO QAM Qty: 30 RF: 0 Continued tamsulosin 0.4 mg capsule 0.4 mg PO Q24H Qty: 30 RF: 5 terazosin 1 mg Capsule 1 mg PO HS RF: 0 aspirin 81 mg Tablet,Delayed Release (Dr/Ec) 81 mg PO QAM RF: 0 ferrous sulfate [Iron (ferrous sulfate)] 325 mg (65 mg iron) Tablet 325 mg PO QAM RF: 0 metformin 1,000 mg Tablet 1,000 mg PO BID RF: 0 nitroglycerin 0.4 mg Tablet, Sublingual 1 tab Sublingual UD PRN (Reason: Angina) RF: 0 vitamin E 400 unit Capsule 400 unit PO QAM RF: 0 glucosamine-chondroitin [Osteo Bi-Flex] 250-200 mg Tablet 1 tab PO HS RF: 0 rosuvastatin 40 mg Tablet 40 mg PO HS RF: 0 Centrum Silver 0.4-300-250 mg-mcg-mcg Tablet 1 tab PO QAM RF: 0 omeprazole 20 mg Tablet,Delayed Release (Dr/Ec) 20 mg PO HS RF: 0 omega [id number]-fish oil [Fish Oil] 1,000 mg (120 mg-180 mg) Capsule 1 cap PO QAM RF: 0 No Action lisinopril 20 mg tablet 20 mg PO DAILY Qty: 180 RF: 3 Lantus U-100 Insulin 100 unit/mL solution 70 units SUBCUT QAM Qty: 20 RF: 11 hydrocodone-acetaminophen 5-325 mg tablet 1 tab PO .COMPLEX PRN (Reason: pain) Qty: 120 RF: 0 sildenafil (antihypertensive) 20 mg tablet See Patient Comments .ROUTE .COMPLEX RF: 0 atenolol 50 mg tablet 50 mg PO DAILY Qty: 30 RF: 2 insulin lispro [Humalog KwikPen Insulin] 100 unit/mL insulin pen See Patient Comments SUBCUT UD RF: 0 Discharge Orders: Discharge Order (Routine); Ordered 05/15/19 Ordered By: Ahmet Fagan/Other Patient Handouts: Diabetes Correction Complications, Diabetes Resources, Diabetes Type 2 Coping, Diabetes Healthy Meals, Diabetes Carbs, Diabetes Exercise Benefits, Diabetes Exercise Get Started, Diabetes Activity Tips, Diabetes Living Life, Diabetes Manage A1C Test Admission Data Admit Date/Time: 05/13/19 13:23 Attending Provider: Ahmet Carvajal Admit Provider: Sarai Lr Primary Care Provider: Jewel Everett Other Providers: Dayne Sin ; Juvencio Romero Other Interventions: Discharge Summary Assessment (RN) Last Done: 05/15/19 15:26 DC Date/Time DO NOT enter until pt leaves facility: 05/15/19 15:53
[2019-05-15 15:09] VITALS: BP 101/51; O2SAT 95
[2019-05-15 15:28] VITALS: PULSE 67
[2019-05-16] MEDS ORDERED: INSULIN GLARGINE SOLOSTAR 100 UNITS/ML 3 ML PEN SC SCH (09:00)
== END 2019-05-15 15:53 | disposition home or self-care (01) ==
LOC: 2S 10:44 → ED 10:44 → SUATTDRO 13:23 → 2S 13:49
DX: R07.9 Chest pain, unspecified; I65.29 Occlusion and stenosis of unspecified carotid artery; C61 Malignant neoplasm of prostate; I25.10 Atherosclerotic heart disease of native coronary artery without angina pectoris; Z79.899 Other long term (current) drug therapy; Z79.4 Long term (current) use of insulin; I10 Essential (primary) hypertension; Z95.1 Presence of aortocoronary bypass graft; E11.9 Type 2 diabetes mellitus without complications; D69.6 Thrombocytopenia, unspecified

== ENCOUNTER 2021-10-17 01:15 | Inpatient (IN) ==
[2021-10-17] MEDS ORDERED: dilTIAZem HCl 5 MG/ML 5 ML VIAL IV ONE (01:33)
[2021-10-17] MEDS ORDERED: SODIUM CHLORIDE 0.9% 500 ML IV ONE ×2 (01:36→02:36)
[2021-10-17] MEDS ORDERED: HYDROmorphone INJ 1 MG/ML SYRINGE IV STA ×2 (01:36→02:41)
[2021-10-17] MEDS ORDERED: ONDANSETRON INJ 2 MG/ML 2 ML VIAL IV STA (01:36)
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
[2021-10-17 01:56] LABS: iSTAT Hemoglobin 11.6 g/dl (14.0-18.0); iSTAT Ionized Calcium 1.05 mmol/l (1.12-1.32); iSTAT Potassium 2.8 mmol/L (3.3-5.0)
[2021-10-17] MEDS ORDERED: diphenhydrAMINE 50 MG/ML VIAL IV STA (01:56)
[2021-10-17 02:22] LABS: Hematocrit (blood only) 34.3 % (42-52); Hemoglobin 11.2 g/dL (14.0-18.0); Mean Corpuscular Hemoglobin 28.1 pg (25-34); Mean Corpuscular Hgb Conc 32.7 g/dL (32-36); Nucleated RBC # (auto) 0.87 K/uL (0-0); Nucleated RBC % (auto) 8.9 %; Platelet Count 205 K/uL (130-400); RDW Coefficient of Variation 19.3 % (11.5-14.5); RDW Standard Deviation 54.3 fL (36.4-46.3); Red Blood Count 3.99 M/uL (4.7-6.1); White Blood Count 9.78 K/uL (4.8-10.8)
[2021-10-17 02:32] LABS: ALC (manual) 1.76 K/uL (1.2-3.4); ANC (manual) 6.26 K/uL (1.4-6.5); Blast # (manual) 0.18 K/uL (0-0); Blast Cells % (manual) 1.8 %; Eosinophils # (manual) 0.18 K/uL (0-0.5); Eosinophils % (manual) 1.8 %; Lymphocytes # (manual) 1.76 K/uL (1.2-3.4); Metamyelocytes # (manual) 0.09 K/uL (0-0); Metamyelocytes % (manual) 0.9 %; Monocytes # (manual) 1.14 K/uL (0.11-0.59); Monocytes % (manual) 11.7 %; Myelocytes # (manual) 0.18 K/uL (0-0); Myelocytes % (manual) 1.8 %; Neutrophils # (manual) 6.26 K/uL (1.4-6.5); Pappenheimer Bodies 1+; Platelet Estimate Normal (Normal); Poikilocytosis Present
[2021-10-17 02:33] LABS: Alanine Aminotransferase 28 U/L (7-52); Albumin Globulin Ratio 1.6 (0.9-2); Albumin Level 4.2 gm/dl (3.4-5.0); Alkaline Phosphatase 46 U/L (34-104); Anion Gap 18 (3-11); Aspartate Aminotransferase 36 U/L (13-39); Bilirubin,Total 1.5 mg/dl (0.2-1.0); Blood Urea Nitrogen 23 mg/dl (6-23); Calcium 7.9 mg/dl (8.5-10.1); Carbon Dioxide 17 mmol/L (21-32); Chloride 103 mmol/L (98-107); Est GFR (African American) 66.1 ml/min; Globulin 2.7 gm/dl (2.5-4.0); Glucose 274 mg/dl (70-99(Fasting)); Potassium 2.7 mmol/L (3.5-5.1); Sodium 138 mmol/L (136-145); Total Protein 6.9 gm/dl (6.0-8.3)
[2021-10-17] MEDS ORDERED: OPTIRAY 320 100ml IV ONE (02:33)
[2021-10-17 02:34] LABS: Troponin I 0.97 ng/ml (0-0.04)
[2021-10-17 02:35] LABS: Magnesium < 0.5 mg/dl (1.7-2.4)
[2021-10-17] MEDS ORDERED: MAGNESIUM SULFATE / D5W 1 GM/100 ML BAG IV STA (02:36)
[2021-10-17] MEDS ORDERED: PIPERACILL/TAZOBAC CONSULT ACTIVE PRN (02:44)
[2021-10-17] MEDS ORDERED: PIPERACILLIN/TAZOBACTAM 4.5 GM/120 ML BAG IV ONE (02:44)
[2021-10-17] MEDS: POTASSIUM CHLORIDE / WTR 10 MEQ/100 ML PLCT IV SCH ×2 (02:44→04:12)
[2021-10-17] MEDS ORDERED: SODIUM CHLORIDE 0.9% 500 ML IV SCH (02:45)
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
[2021-10-17 03:58] LABS: INR 1.6 (0.9-1.1); Partial Thromboplastin Ratio 1.1; Partial Thromboplastin Time 29.3 Seconds (21.0-31.0); Prothrombin Time 16.7 Seconds (9.0-12.0)
[2021-10-17] MEDS: MAGNESIUM SULFATE / D5W 1 GM/100 ML BAG IV SCH ×6 (04:12→17:20)
[2021-10-17] MEDS ORDERED: ACETAMINOPHEN 1000 MG/100 ML IV IV PRN (04:27)
[2021-10-17] MEDS ORDERED: NSS+KCL 20 MEQ 1000ML IV ONE (05:15)
[2021-10-17] MEDS: NSS + 20MEQ KCL 20 MEQ/1,000 ML BAG IV SCH ×2 (06:09→15:52)
[2021-10-17 06:35] LABS: Appearance Urine Clear (Clear); Bacteria Urine Automated Negative (Negative); Bilirubin Urine Negative (Negative); Blood Urine 2+ (Negative); Cast Urine Automated 0 /lpf (0-5); Color Urine Yellow; Glucose Urine UA 3+ (Negative); Ketones Urine 1+ (Negative); Leukocyte Esterase Urine Negative (Negative); Nitrite Urine Negative (Negative); Protein Urine 1+ (Negative); RBC Urine Automated 0-4 /hpf (0-4); Specific Gravity Urine 1.041 (1.000-1.030); Urobilinogen Urine Negative (Negative)
[2021-10-17] MEDS ORDERED: GLUCOSE 10 TABS/TUBE PO PRN (07:04)
[2021-10-17] MEDS ORDERED: DEXTROSE 50% 50 ML SYRINGE IV PRN (07:04)
[2021-10-17] MEDS ORDERED: CARBOHYDRATES FOR HYPOGLYCEMIA PO PRN (07:04)
[2021-10-17] MEDS ORDERED: GLUCAGON FOR INJ 1 MG VIAL SQ PRN (07:04)
[2021-10-17] MEDS ORDERED: GLUCOSE 40% GEL 15 GM TUBE PO PRN (07:04)
--- NOTE | 2021-10-17 07:30 | XRay Report ---
XR chest 1V portable CLINICAL HISTORY: SEPSIS COMPARISON STUDY: Chest radiograph October 03, 2021. FINDINGS: No pneumothorax or pleural effusion is present. Cardiomegaly is noted. There are median lucinda rnotomy wires and mediastinal surgical clips.There is no evidence for pulmonary edema. Linear left ba silar opacity reflects atelectasis or scarring. No consolidation is identified to suggest pneumonia IMPRESSION: No acute cardiopulmonary findings. Cardiomegaly. ACT 112: Negative or not required by law. Electronically signed by: Marquez Mckeon M.D. 10/17/2021 7:29 AM
--- NOTE | 2021-10-17 07:42 | CT Scan Report ---
ABDOMEN AND PELVIS CT WITH IV CONTRAST CT DOSE: 636.20 mGy.cm HISTORY: Severe right lower quadrant pain. TECHNIQUE: Multiaxial CT images of the abdomen and pelvis were performed following the use of intrave nous contrast. A dose lowering technique was utilized adhering to the principles of ALARA. COMPARISON STUDY: Pelvis CT 12/15/2013 and 10/18/2018. FINDINGS: Mild dependent changes seen at the lung bases. No pneumoperitoneum. No pneumatosis. Posteri or fusion hardware from L3 through S1 again noted. No suspicious lytic or blastic osseous lesions. Th ere are poststernotomy changes. The heart is mildly enlarged. The liver, gallbladder, and pancreas un remarkable. Moderate right and mild left cortical renal scarring. No hydronephrosis. There is mild bi lateral perinephric edema. This is likely chronic. The main portal vein is patent. Moderate calcified plaque within the normal caliber abdominal aorta. 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 The bladder is distended. No bladder wall thickening. The prostate gland is mildly enlarged. No retroperitoneal lymphadenopathy. No evidence for bowel obstruction. Moderate b owel wall thickening involving the cecum and proximal ascending colon with mild pericolonic fat stran ding. The base of the appendix is slightly prominent compared to the prior study. However, the distal appendix is normal in caliber. This may be partially reactive to the adjacent colitis. No evidence f or acute appendicitis. Bilateral adrenal gland thickening which is likely chronic. IMPRESSION: 1. Moderate wall thickening involving the cecum and ascending colon with mild pericolonic fat. This c onsistent with a nonspecific colitis and could represent a neutropenic colitis. 2. Mild thickening at the base of the appendix which has progressed. However, the distal appendix is within normal limits. This may be reactive to the adjacent colitis. No definite evidence for acute ap pendicitis. 3. No evidence for bowel obstruction. 4. Mildly distended bladder. 5. Additional findings as described above. ACT 112: Negative or not required by law. Electronically signed by: Kvng Armando M.D. 10/17/2021 7:41 AM
--- NOTE | 2021-10-17 07:48 | Ultrasound Report ---
US duplex mesenteric CLINICAL HISTORY: eval for acute ischemic colitis. Severe right lower quadrant pain. COMPARISON STUDY: Abdomen and pelvis CT 10/17/2021. FINDINGS: The proximal aorta demonstrates a normal velocity. The mesenteric arteries were obscured by overlying bowel gas. IMPRESSION: Mesenteric arteries obscured by overlying bowel gas. ACT 112: Negative or not required by law. Electronically signed by: Kvng Armando M.D. 10/17/2021 7:47 AM
[2021-10-17] MEDS: MoRPHine SULFATE 2 MG/ML CARP IV PRN ×2 (08:06→11:34)
[2021-10-17] MEDS: INSULIN GLARGINE SOLOSTAR 100 UNITS/ML 3 ML PEN SC SCH ×2 (08:27→20:36)
[2021-10-17] MEDS: INSULIN ASPART PER UNIT SC SCH ×4 (08:27→20:34)
[2021-10-17 08:50] LABS: Hemoglobin 10.9 g/dL (14.0-18.0); Mean Corpuscular Hemoglobin 28.1 pg (25-34); Mean Corpuscular Volume 85.1 fL (80-100); Nucleated RBC # (auto) 0.38 K/uL (0-0); Nucleated RBC % (auto) 3.6 %; Platelet Count 212 K/uL (130-400); RDW Coefficient of Variation 20.1 % (11.5-14.5); RDW Standard Deviation 55.2 fL (36.4-46.3); Red Blood Count 3.88 M/uL (4.7-6.1); White Blood Count 10.52 K/uL (4.8-10.8)
[2021-10-17] MEDS: PIPERACILLIN/TAZOBACTAM 3.375 GM in DEXTROSE 5% 100 ML IV SCH ×3 (09:14→23:59)
[2021-10-17 09:17] LABS: Albumin Globulin Ratio 1.5 (0.9-2); Albumin Level 3.9 gm/dl (3.4-5.0); BUN Creatinine Ratio 17.4 (10-20); Bilirubin,Total 1.6 mg/dl (0.2-1.0); Calcium 7.5 mg/dl (8.5-10.1); Est GFR (African American) 66.1 ml/min; Globulin 2.6 gm/dl (2.5-4.0); Magnesium 1.2 mg/dl (1.7-2.4); Phosphorus 3.3 mg/dl (2.5-4.9); Potassium 3.8 mmol/L (3.5-5.1); Total Protein 6.5 gm/dl (6.0-8.3)
[2021-10-17] MEDS ORDERED: MoRPHine SULFATE 4 MG/ML 1 ML CARP\\VIAL IV PRN (09:20)
[2021-10-17 09:23] LABS: ALC (manual) 0.66 K/uL (1.2-3.4); ANC (manual) 9.01 K/uL (1.4-6.5); Acanthocytes 1+; Anisocytosis Present; Lymphocytes # (manual) 0.66 K/uL (1.2-3.4); Lymphocytes % (manual) 6.3 %; Monocytes # (manual) 0.47 K/uL (0.11-0.59); Monocytes % (manual) 4.5 %; Myelocytes # (manual) 0.38 K/uL (0-0); Myelocytes % (manual) 3.6 %; Neutrophils # (manual) 9.01 K/uL (1.4-6.5); Neutrophils % (manual) 85.6 %; Poikilocytosis Present; Toxic Vacuolation 1+
[2021-10-17] MEDS ORDERED: NITROGLYCERIN SL 0.4 MG/TAB TAB SL PRN (09:39)
[2021-10-17] MEDS: POTASSIUM ACETATE/NSS 10 MEQ/105 ML BAG IV SCH ×2 (10:09→11:25)
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
[2021-10-17] MEDS ORDERED: METOPROLOL TARTRATE 1 MG/ML VIAL IV STA (10:42)
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
[2021-10-17] MEDS ORDERED: ONDANSETRON INJ 2 MG/ML 2 ML VIAL IV PRN ×2 (12:11→15:23)
[2021-10-17] MEDS ORDERED: ACETAMINOPHEN 1000 MG/100 ML IV IV SCH (12:15)
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
[2021-10-17] MEDS ORDERED: SODIUM CHLORIDE 0.9% 250 ML IV PRN (12:21)
[2021-10-17] MEDS ORDERED: DEXAMETHASONE SOD INJ 4 MG/ML VIAL ONE (12:30)
[2021-10-17] MEDS ORDERED: ROCURONIUM BROMIDE 10 MG/ML 5 ML VIAL IV ONE (12:30)
[2021-10-17] MEDS ORDERED: fentaNYL citrate 100 MCG/2 ML VIAL ONE ×2 (12:30→14:06)
[2021-10-17] MEDS ORDERED: PROPOFOL IV EMULSION 10 MG/ML 20 ML VIAL IV ONE (12:30)
[2021-10-17] MEDS ORDERED: SUCCINYLCHOLINE CHLORIDE 20 MG/ML 10 ML VIAL IV ONE (12:30)
[2021-10-17] MEDS ORDERED: KETAMINE 50 MG/5 ML SYRINGE ONE (12:30)
[2021-10-17] MEDS ORDERED: ONDANSETRON INJ 2 MG/ML 2 ML VIAL ONE (12:30)
[2021-10-17] MEDS ORDERED: ALBUMIN HUMAN 5% 12.5 GM/250 ML VIAL IV ONE ×2 (12:39)
[2021-10-17] MEDS ORDERED: INSULIN HUMAN REGULAR PER UNIT 10 UNITS in SYRINGE 0 ML IV STA (12:52)
[2021-10-17] MEDS ORDERED: NovoLIN-R INSULIN PER UNIT CHARGE ONE (12:54)
--- NOTE | 2021-10-17 14:41 | Post Operative Brief Note ---
PG Immediate Post Op with CF Date of Surgery October 17, 2021 Pre & Post Diagnosis Operation Date: 10/17/21 11:00 Pre-Op Diagnosis: Ischemic bowel Post-Op Diagnosis: Ischemic bowel with necrosis-involving the cecum I identified the patient and participated in the time-out.: Yes Procedure Operation Date: 10/17/21 11:00 Actual Procedures p Exploratory Laparotomy, right colectomy, ileocolic anastomosis(Not Applicable) - Jad Renteria MD, FACS Surgeon Jad Renteria MD, FACS Board Of Directors Elisa Ferreira Estimated Blood Loss 20 Findings Consistent with Post-Op Diagnosis Patient had ischemia of the cecum with a 3 cm area of necrosis but no evidence of perforation Specimens Specimen Description: A. right colon and ileum Drains Brandt Catheter and Brice Drain
[2021-10-17 15:13] LABS: iSTAT Hemoglobin 8.5 g/dl (14.0-18.0); iSTAT Ionized Calcium 1.08 mmol/l (1.12-1.32); iSTAT Potassium 3.8 mmol/L (3.3-5.0)
[2021-10-17 15:13] LABS: iSTAT Arterial Blood Gas HCO3 16 meg/L (19-24); iSTAT Arterial Blood Gas pCO2 42 mmHg (35-46); iSTAT Arterial Blood Gas pH 7.19 (7.35-7.45); iSTAT Arterial Blood Gas pO2 79 mmHg (80-95); iSTAT Carbon Dioxide 17 mmol/L (24-31); iSTAT Hematocrit 24 % (42-52); iSTAT Hemoglobin 8.2 g/dl (14.0-18.0); iSTAT Potassium 3.8 mmol/L (3.3-5.0); iSTAT Sodium 138 mmol/L (135-144)
[2021-10-17] MEDS ORDERED: SODIUM BICARB 8.4% INJ 50 MEQ/50 ML SYR IV ONE (15:15)
[2021-10-17] MEDS ORDERED: PHENYLEPHRINE HCL 10 MG/ML VIAL ONE (15:18)
[2021-10-17] MEDS ORDERED: VASOPRESSIN 20 UNIT/ML VIAL ONE (15:18)
[2021-10-17] MEDS ORDERED: PROPOFOL IV EMULSION 10 MG/ML 100 ML VIAL IV ONE (15:20)
[2021-10-17] MEDS ORDERED: fentaNYL citrate 2,500 MCG/250 ML BAG IV ONE (15:20)
[2021-10-17] MEDS ORDERED: PROMETHAZINE HCL 12.5 MG in SODIUM CHLORIDE 0.9% 50 ML IV PRN (15:23)
[2021-10-17] MEDS ORDERED: HYDROmorphone INJ 1 MG/ML SYRINGE IV PRN (15:32)
[2021-10-17] MEDS ORDERED: NALOXONE HCL 0.4 MG/1 ML VIAL/CARP IV PRN (15:32)
[2021-10-17] MEDS ORDERED: fentaNYL citrate 100 MCG/2 ML VIAL IV PRN (15:32)
[2021-10-17] MEDS ORDERED: ATROPINE SULFATE 0.1 MG/ML 10ML SYR IV PRN (15:32)
[2021-10-17] MEDS ORDERED: ePHEDrine sulfate 50 MG/ML AMP IV PRN (15:32)
[2021-10-17] MEDS ORDERED: STAT IV Infusion **Titration per Protocol STA (15:33)
[2021-10-17] MEDS: METOPROLOL TARTRATE 1 MG/ML VIAL IV SCH ×2 (15:34→16:23)
[2021-10-17] MEDS: ACETAMINOPHEN 1,000 MG/100 ML VIAL IV SCH ×2 (15:34→21:04)
--- NOTE | 2021-10-17 15:38 | Anesthesiology Progress Note ---
Date of Service October 17, 2021 Anesthesia Post Procedure Vital Signs Vital Signs: Temp Pulse Pulse Pulse Resp BP BP 10/17/21 15:11 113 H 16 10/17/21 12:40 37.5 C 112 H 20 148/72 H 10/17/21 11:31 110 H 160/76 H 10/17/21 11:27 37.2 C 110 H 18 160/76 H 10/17/21 10:04 112 H 18 171/75 H 10/17/21 09:29 38.2 C H 113 H 18 194/79 H 10/17/21 09:02 113 H 10/17/21 07:07 10/17/21 07:04 116 H 18 154/84 H 10/17/21 06:15 109 H 20 159/69 H 10/17/21 05:31 37.5 C 117 H 20 174/79 H 10/17/21 04:20 20 10/17/21 04:19 119 H 20 154/71 H 10/17/21 02:39 129 H 20 170/93 H 10/17/21 02:14 133 H 23 155/95 H 10/17/21 02:13 10/17/21 02:00 116 H 24 10/17/21 01:58 22 10/17/21 01:50 122 H 22 164/72 H 10/17/21 01:47 129 H 18 164/72 H 10/17/21 01:30 138 H 24 10/17/21 01:28 149 H 23 10/17/21 01:18 37.8 C H 146 H 20 148/118 H Pulse Ox Pulse Ox 10/17/21 15:11 96 10/17/21 12:40 93 10/17/21 11:31 10/17/21 11:27 95 10/17/21 10:04 10/17/21 09:29 97 10/17/21 09:02 10/17/21 07:07 98 10/17/21 07:04 98 10/17/21 06:15 95 10/17/21 05:31 95 10/17/21 04:20 94 10/17/21 04:19 94 10/17/21 02:39 96 10/17/21 02:14 96 10/17/21 02:13 94 10/17/21 02:00 96 10/17/21 01:58 96 10/17/21 01:50 95 10/17/21 01:47 96 10/17/21 01:30 97 10/17/21 01:28 96 10/17/21 01:18 96 Pain Intensity Anterior Abdomen: Pain Intensity: 10 Transfer of Care Handoff Completed per policy Notes Mental Status: see notes below Patient Amnestic to Procedure: Yes Nausea / Vomiting: adequately controlled Pain: adequately controlled Airway Patency, RR, SpO2: stable & adequate BP & HR: see Notes below Hydration State: see Notes below Anesthetic Complications: no major complications apparent Notes: Pt sent to ICU intubated and placed on a mechanical ventilator, due to less than adequate results on intraop ABG's; Discussed case w/ Dr Rodriguez who is in agreement. Pt is in ongoing fluid resuscitation, with swings in BP.It is felt that the ICU and intubation would better serve the pt. in continuing optimization.
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
[2021-10-17] MEDS ORDERED: fentaNYL citrate 2,500 MCG/250 ML BAG IV SCH (15:45)
[2021-10-17] MEDS: propofoL 1,000 MG/100 ML VIAL IV SCH ×2 (15:48→20:04)
[2021-10-17] MEDS: PROPOFOL BOLUS FROM BAG IV PRN ×2 (15:49→19:20)
--- NOTE | 2021-10-17 15:55 | XRay Report ---
XR chest 1V portable at 3:21 PM CLINICAL HISTORY: hypoxia. Status post intubation and NG tube placement COMPARISON STUDY: 10/17/2021 at 1:29 AM TECHNIQUE: 1 view of the chest FINDINGS: Single frontal view of the chest demonstrates the cardiomediastinal silhouette to be within normal li mits. Endotracheal tube has been placed with its tip approximately 4.2 cm above the andres. OG tube i s also in place with its tip in the gastric fundus. Compared to previous examination, there is decreased expansion of lungs with elevation of hemidiaphra gms and interval development of bibasilar atelectasis. The lungs are clear of alveolar opacities. Is also blunting left costophrenic angle suspicious for small left pleural effusion. There is no evidenc e for right pleural effusion. There is no evidence for vascular congestion. There is no acute osseous pathology. IMPRESSION: 1. ET and OG tubes in satisfactory position. 2. There is decreased expansion of lungs with bibasilar atelectasis. 3. There is also suspicion of small left pleural effusion. ACT 112: Negative or not required by law. Electronically signed by: Bill Cool M.D. 10/17/2021 3:54 PM
[2021-10-17 16:12] LABS: iSTAT Arterial Blood Gas HCO3 21 meg/L (19-24); iSTAT Arterial Blood Gas pCO2 41 mmHg (35-46); iSTAT Arterial Blood Gas pH 7.32 (7.35-7.45); iSTAT Arterial Blood Gas pO2 101 mmHg (80-95); iSTAT Carbon Dioxide 22 mmol/L (24-31); iSTAT FiO2 80 %; iSTAT Site Art Line
[2021-10-17 16:41] LABS: Hematocrit (blood only) 29.4 % (42-52); Hemoglobin 9.5 g/dL (14.0-18.0); Mean Corpuscular Hemoglobin 27.9 pg (25-34); Mean Corpuscular Hgb Conc 32.3 g/dL (32-36); Mean Corpuscular Volume 86.2 fL (80-100); Nucleated RBC # (auto) 0.42 K/uL (0-0); Nucleated RBC % (auto) 5.4 %; Platelet Count 156 K/uL (130-400); RDW Coefficient of Variation 19.7 % (11.5-14.5); RDW Standard Deviation 55.6 fL (36.4-46.3); Red Blood Count 3.41 M/uL (4.7-6.1); White Blood Count 7.74 K/uL (4.8-10.8)
--- NOTE | 2021-10-17 16:51 | Communication Note ---
Date of Service: October 17, 2021 seen in f/u from early AM admit abd pain persists not really better. no sob. RLQ guarding/rebound. rebound also reproducible with palp of L side of abdomen - referring pain to the area on the R. breathing unlabored acute abdomen/colitis - concern on immune compromise vs ischemic --either way concerning presentation - zosyn, supportive care, consulted surgery --> to OR --> ICU CAD w demand ischemia/type 2 FL - treat above as sepsis is the physiologic stress precipitating the ischemia - but also follow closely, beta block as possible. appreciate cardiology input otherwise as per H&P
[2021-10-17 16:57] LABS: Albumin Globulin Ratio 2.3 (0.9-2); Albumin Level 3.6 gm/dl (3.4-5.0); BUN Creatinine Ratio 19.2 (10-20); Bilirubin,Total 1.5 mg/dl (0.2-1.0); Calcium 7.5 mg/dl (8.5-10.1); Creatinine Clr Calc Pharmacy 63.5 ml/min; Est GFR (African American) 84.2 ml/min; Est GFR (Non-African American) 72.6 ml/min; Globulin 1.6 gm/dl (2.5-4.0); Potassium 3.6 mmol/L (3.5-5.1); Total Protein 5.2 gm/dl (6.0-8.3)
--- NOTE | 2021-10-17 17:20 | Operative Report (OR) ---
DATE OF OPERATION: 10/17/2021. NAME OF OPERATION: Exploratory laparotomy with right colectomy and ileocolic anastomosis. PREOPERATIVE DIAGNOSIS: Ischemic bowel. POSTOPERATIVE DIAGNOSIS: Ischemic cecum with a site of necrosis. STAFF SURGEON: Jad Renteria MD. DISTRIBUTION OPERATION SUPERVISOR: Hermilo Ferreira PA-C. ANESTHESIA: General. DESCRIPTION OF PROCEDURE: The patient was brought in the operating room and placed on the operating table in supine position. His abdomen was prepped and draped in the usual fashion. Pneumatic stocki ngs, Brandt catheter, and a nasogastric tube were in place. My reference library assistant helped with prepping, drapin g, removal of the colon and the anastomosis and closure of the wound. Incision was made in the midli ne, carrying dissection down into the abdomen. On inspection, the patient's cecum was very ischemic with a 3 cm site of necrosis with no perforation. The ileum and more distal ascending colon were nor mal. The right colon and ileum were mobilized. There were adhesions in the right lower quadrant wit h the appendix and ileum. These were mobilized. The ileum was then transected using a GRETA 60 staple r. The colon was then transected in the upper portion of the right colon using a GRETA 80 stapler. Me socolon was then transected using LigaSure and also ligatures of 2-0 silk and 0 chromic suture. We w ere careful to identify the duodenum. At this point, I felt a qkot-xy-phvh anastomosis would be appr opriate. The bowel was completely viable. We oversew the ends using 3-0 silk suture. The mesenteri c defect was closed using 0 chromic suture. Jgwg-gy-zebj anastomosis was performed using a GRETA 80 st apler with the enteric defect then closed using a TA 60 stapler that was oversewn using 3-0 silk sutu re. A silk was placed at the crotch of the anastomosis. At this point, the site was irrigated and t hen the peritoneum and posterior fascia closed using running #1 chromic suture. Anterior fascia clos ed using running #1 PDS suture. A quarter-inch Jasmina drain placed in the subcutaneous space, secur ed to the skin using 3-0 nylon suture. The skin was reapproximated using sandee. The patient lefty ated the procedure and was sent to the intensive care unit. He was on vasopressors during the operat ion for hypotension. Job ID: [id number]
[2021-10-17] MEDS ORDERED: METOPROLOL TARTRATE 1 MG/ML VIAL IV SCH (18:00)
[2021-10-17 18:34] LABS: ALC (manual) 1.58 K/uL (1.2-3.4); ANC (manual) 5.06 K/uL (1.4-6.5); Echinocytes 1+; Eosinophils # (manual) 0.14 K/uL (0-0.5); Eosinophils % (manual) 1.8 %; Hypochromasia Present; Lymphocytes # (manual) 1.58 K/uL (1.2-3.4); Lymphocytes % (manual) 20.4 %; Monocytes # (manual) 0.96 K/uL (0.11-0.59); Monocytes % (manual) 12.4 %; Neutrophils # (manual) 5.06 K/uL (1.4-6.5); Neutrophils % (manual) 65.4 %; Poikilocytosis Present; Toxic Vacuolation 1+
--- NOTE | 2021-10-17 18:56 | Electrocardiogram Report ---
Test Reason : Blood Pressure : / mmHG Vent. Rate : 141 BPM Atrial Rate : 141 BPM P-R Int : 184 ms QRS Dur : 088 ms QT Int : 376 ms P-R-T Axes : 066 034 039 degrees QTc Int : 575 ms Sinus tachycardia with Premature atrial complexes some consecutive Poor R wave progression, consider anterior [place] vs. lead placement vs. LVH Marked ST abnormality, possible lateral subendocardial injury Abnormal ECG When compared with ECG of 03-OCT-2021 11:59, Aberrant conduction is now Present Vent. rate has increased BY [address] now depressed in Lateral leads T wave inversion no longer evident in Anterior leads Nonspecific T wave abnormality now evident in Lateral leads Confirmed by Juan Fisher ([id number]) on 10/17/2021 6:56:24 PM Referred By: REFERRED SELF Confirmed By:Camacho Fisher
--- NOTE | 2021-10-17 19:00 | Electrocardiogram Report ---
Test Reason : Blood Pressure : / mmHG Vent. Rate : 111 BPM Atrial Rate : 111 BPM P-R Int : 168 ms QRS Dur : 090 ms QT Int : 318 ms P-R-T Axes : 044 041 -10 degrees QTc Int : 432 ms Sinus tachycardia with Premature atrial complexes Nonspecific ST abnormality Otherwise normal ECG When compared with ECG of 17-OCT-2021 05:31, (unconfirmed) Criteria for Anterior infarct are no longer Present Confirmed by Juan Fisher ([id number]) on 10/17/2021 7:00:32 PM Referred By: REFERRED SELF Confirmed By:Camacho Fisher
--- NOTE | 2021-10-17 19:09 | Electrocardiogram Report ---
Test Reason : Blood Pressure : / mmHG Vent. Rate : 116 BPM Atrial Rate : 117 BPM P-R Int : 170 ms QRS Dur : 082 ms QT Int : 334 ms P-R-T Axes : 073 040 010 degrees QTc Int : 464 ms Sinus tachycardia with Premature atrial complexes Nonspecific ST abnormality Abnormal ECG When compared with ECG of 03-OCT-2021 11:59, Premature atrial complexes are now Present Vent. rate has increased BY 41 BPM Confirmed by Juan Fisher ([id number]) on 10/17/2021 7:09:10 PM Referred By: REFERRED SELF Confirmed By:Camacho Fisher
[2021-10-18] MEDS: PROPOFOL BOLUS FROM BAG IV PRN ×2 (01:19→02:38)
[2021-10-18] MEDS: propofoL 1,000 MG/100 ML VIAL IV SCH ×2 (04:10→20:56)
[2021-10-18 04:32] LABS: iSTAT Art Bld Gas pCO2 Correct 32 mmHg (35-46); iSTAT Art Bld Gas pH Corrected 7.419 (7.35-7.45); iSTAT Arterial Blood Gas HCO3 21 meg/L (19-24); iSTAT Arterial Blood Gas pCO2 32 mmHg (35-46); iSTAT Arterial Blood Gas pH 7.43 (7.35-7.45); iSTAT Arterial Blood Gas pO2 83 mmHg (80-95); iSTAT Arterial Blood Gas pO2 C 86; iSTAT Carbon Dioxide 22 mmol/L (24-31); iSTAT FiO2 30 %; iSTAT Hematocrit 25 % (42-52); iSTAT Hemoglobin 8.5 g/dl (14.0-18.0); iSTAT Potassium 3.4 mmol/L (3.3-5.0); iSTAT Site Art Line; iSTAT Sodium 142 mmol/L (135-144)
[2021-10-18 04:44] LABS: Mean Corpuscular Hgb Conc 33.5 g/dL (32-36); Nucleated RBC % (auto) 3.6 %
[2021-10-18 04:50] LABS: INR 1.7 (0.9-1.1); Prothrombin Time 17.3 Seconds (9.0-12.0)
[2021-10-18 05:16] LABS: Albumin Level 3.4 gm/dl (3.4-5.0); BUN Creatinine Ratio 19.2 (10-20); Bilirubin Direct 0.3 mg/dl (0-0.2); Bilirubin,Total 1.3 mg/dl (0.2-1.0); Creatinine Clr Calc Pharmacy 63.5 ml/min; Est GFR (African American) 84.2 ml/min; Est GFR (Non-African American) 72.6 ml/min; Phosphorus 2.1 mg/dl (2.5-4.9); Potassium 3.6 mmol/L (3.5-5.1); Total Protein 5.6 gm/dl (6.0-8.3); Troponin I 3.15 ng/ml (0-0.04)
[2021-10-18 05:22] LABS: Hematocrit (blood only) 28.4 % (42-52); Hemoglobin 9.5 g/dL (14.0-18.0); Mean Corpuscular Hemoglobin 28.7 pg (25-34); Mean Corpuscular Volume 85.8 fL (80-100); RDW Standard Deviation 57.4 fL (36.4-46.3); Red Blood Count 3.31 M/uL (4.7-6.1); White Blood Count 5.53 K/uL (4.8-10.8)
--- NOTE | 2021-10-18 05:35 | Billing Data ---
Date of Service October 18, 2021 Coding Level of Care Code 55541 Initial Inpt Care Lvl 3
[2021-10-18] MEDS: ACETAMINOPHEN 1,000 MG/100 ML VIAL IV SCH ×3 (05:42→21:00)
[2021-10-18] MEDS ORDERED: POTASSIUM PHOS 3 MMOL/1 ML INFUSION IV STA (06:04)
[2021-10-18 06:05] LABS: Platelet Count 130 K/uL (130-400)
[2021-10-18 06:08] LABS: Basophils # (auto) 0.02 K/uL (0-0.2); Basophils % (auto) 0.4 %; Eosinophils # (auto) 0.03 K/uL (0-0.5); Eosinophils % (auto) 0.5 %; Immature Granulocytes # (auto) 0.14 K/uL (0.00-0.02); Immature Granulocytes % (auto) 2.5 %; Lymphocytes % (auto) 21.7 %; Monocytes # (auto) 0.52 K/uL (0.11-0.59); Monocytes % (auto) 9.4 %; Neutrophils # (auto) 3.62 K/uL (1.4-6.5); Neutrophils % (auto) 65.5 %; Platelet Estimate Decreased (Normal)
[2021-10-18] MEDS ORDERED: POTASSIUM PHOSPHATE 15 MMOL in DEXTROSE 5% 250 ML IV ONE (06:15)
--- NOTE | 2021-10-18 06:43 | Surgery Progress Note ---
Date of Service October 18, 2021 Assessment & Plan (1) H/O colectomy: Plan: Patient had ischemic necrosis of the cecum without perforation Surrounding peritonitis Required right colectomy with ileocolic anastomosis Remaining bowel appeared completely viable and well perfused Continue n.p.o., NG tube decompression Patient currently on ventilator-extubation per ICU team Continue IV antibiotics Admission and Anticipated Discharge Date Admission Date: October 17, 2021 Results & Data ([facility]) Vital Signs (Past 12 Hours) Vital Signs Temp Pulse Resp BP Pulse Ox 10/18/21 06:00 94 H 18 96 10/18/21 05:50 95 H 16 96 10/18/21 05:40 96 H 19 96 10/18/21 05:30 95 H 18 96 10/18/21 05:20 96 H 16 96 10/18/21 05:10 95 H 18 96 10/18/21 05:00 96 H 19 96 10/18/21 04:50 96 H 16 96 10/18/21 04:40 95 H 18 96 10/18/21 04:35 37.5 C 10/18/21 04:30 97 H 19 96 10/18/21 04:20 96 H 16 96 10/18/21 04:10 95 H 20 96 10/18/21 04:00 95 H 18 128/70 96 10/18/21 03:50 96 H 16 96 10/18/21 03:40 95 H 19 96 10/18/21 03:30 95 H 19 96 10/18/21 03:20 94 H 16 96 10/18/21 03:10 94 H 18 96 10/18/21 03:00 94 H 18 135/73 96 10/18/21 02:20 94 H 18 97 10/18/21 02:10 94 H 18 97 10/18/21 02:00 94 H 18 132/72 97 10/18/21 01:50 94 H 18 97 10/18/21 01:40 93 H 18 97 10/18/21 01:30 93 H 19 133/39 L 97 10/18/21 01:20 94 H 18 96 10/18/21 01:10 92 H 18 96 10/18/21 01:00 92 H 19 138/74 96 10/18/21 00:50 94 H 18 96 10/18/21 00:40 93 H 18 96 10/18/21 00:30 93 H 18 96 10/18/21 00:20 92 H 18 96 10/18/21 00:10 92 H 19 96 10/18/21 00:00 37 C 92 H 20 123/67 96 10/17/21 23:50 99 H 25 H 96 10/17/21 23:40 91 H 19 97 10/17/21 23:35 90 19 97 10/17/21 23:30 90 19 97 10/17/21 23:20 89 19 97 10/17/21 23:10 89 19 97 10/17/21 23:00 90 19 138/68 97 10/17/21 22:50 87 18 97 10/17/21 22:40 89 18 97 10/17/21 22:30 88 18 97 10/17/21 22:20 88 19 97 10/17/21 22:10 89 19 97 10/17/21 22:00 89 18 136/69 97 10/17/21 21:50 90 18 96 10/17/21 21:40 90 18 96 10/17/21 21:30 92 H 19 96 10/17/21 21:20 91 H 19 96 10/17/21 21:10 92 H 19 96 10/17/21 21:00 91 H 18 132/66 96 10/17/21 20:50 90 19 96 10/17/21 20:40 92 H 18 96 10/17/21 20:30 91 H 18 96 10/17/21 20:20 91 H 18 96 10/17/21 20:10 90 18 96 10/17/21 20:00 37.3 C 89 18 120/65 96 10/17/21 19:50 89 18 96 10/17/21 19:40 89 18 96 10/17/21 19:30 90 18 97 10/17/21 19:20 91 H 18 99 10/17/21 19:10 88 18 99 10/17/21 19:00 88 18 124/69 99 PG Care Time/CCT Total # of Minutes Spent Total Time Spent with Patient: Total time spent is greater than 50% in coordination of care (as documented) at patient's floor/unit and/or counseling patient: Coding Level of Care Code None Diagnoses H/O colectomy Z90.49
[2021-10-18] MEDS ORDERED: FUROSEMIDE INJ 20 MG/2 ML VIAL IV ONE (08:00)
--- NOTE | 2021-10-18 08:03 | XRay Report ---
XR chest 1V portable CLINICAL HISTORY: Hypoxia TECHNIQUE: Single frontal radiograph of the chest was obtained. Comparison: Comparison is made to chest one view 10/17/2021 FINDINGS: Lines and tubes are stable. The cardiomediastinal silhouette is normal. Prominence and cephalization of the vasculature is seen. Interval worsening of faint airspace opacities. Small left pleural effusi on, unchanged. IMPRESSION: Faint bibasilar airspace opacities, new from prior exam, which may represent atelectasis, pneumonia, and/or aspiration. Mild pulmonary edema, increased from prior. Small left pleural effusion. ACT 112: Negative or not required by law. Electronically signed by: Danilo Rebollar M.D. 10/18/2021 8:01 AM
--- NOTE | 2021-10-18 08:10 | Hospitalist Progress Note ---
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 POD#1 s/p colectomy for ischemic bowel necrosis - taken for ExLap by surgery yesterday for acute peritonitis, found 3cm necrotic cecum that was removed and small bowel reapproximated without ostomy bag placement - continue zosyn for empiric coverage of bacteremia/necrotic infection - continue IVF - WBC downtrended, will continue to monitor in setting of hx pancytopenia - NPO pending return of bowel function Lactic acidosis 2/2 bowel ischemia- resolved A-fib with RVR - stable - H/o atrial flutter but not on chronic AC. HR 146 on presentation to ED - suspect 2/2 sepsis. Rates improved to 110s after IVFs. - heparin for DVT ppx Elevated Troponin - secondary to demand ischemia from sepsis - downtrended Electrolyte Abnormalities - resolved - monitor BMPs MDS with Pancytopenia and Transfusion-Dependence - last transfusion a few days ago, Hgb 11.2 on presentation. - transfusion goal of >10.0 - trend CBC daily Hyperbilirubinemia - downtrending, may warrant outpatient RUQ US/HIDA CAD/PAD - TTE on 10/17 - moderate concentric left ventricular hypertrophy. apical inferior and anterior septum hypokinesis, basilar and mid inferior wall mild hypokinesis (chronic). - EF: 55-60 - LA mildly dilated, mild valvular aortic stenosis, trace aortic regurg, mild to mod mitral regurg, mod tricuspid regurg, RVP elevated at 40-50mmHG - restart daily ASA, monitor for bleeding post op Chronic Medical Conditions HTN: hold Lisinopril and Atenolol for now T2DM: SSI while hospitalized, with reduced Lantus dosing due to NPO and sepsis GERD: IV pantoprazole while NPO HLD: hold statin while NPO BPH: hold Flomax while NPO FEN/GI: NPO, NSS+20mEq KCl @125cc/hr, monitor I/O DVT Prophylaxis: SCDs, heparin 5,000u BID Code Status: DNR/DNI, but okay with intubation outside of cardiac arrest Disposition: downgraded to PCU/tele (2) Lactic acidosis: (3) Hypokalemia: (4) Hypomagnesemia: (5) Hypocalcemia: (6) Hyperbilirubinemia: (7) Elevated troponin: (8) Status post CVA: (9) Prostate cancer: (10) CAD (coronary artery disease), [place] coronary artery: (11) PAD (peripheral artery disease): (12) Hypertension: (13) Hyperlipidemia: (14) Gastroesophageal reflux disease: (15) Benign prostate hyperplasia: (16) Pancytopenia: (17) Myelodysplastic syndrome: Admission and Anticipated Discharge Date Admission Date: October 17, 2021 Supervising Physician Co-Signing Physician Notes I personally examined the patient and verified all ceballos points of history and exam, discussed case, and agree with decision making with Dr Rios feeling reasonable, asks good questions about his overall recovery. Vitals noted, in general he is awake and alert pleasant no distress. Very fatigued. HEENT normocephalic atraumatic mucous membranes moist. Breathing unlabored no accessory muscle use good effort. Skin shows no rashes no pallor or icterus. Neuro without focal deficits. Left greater than right lower thoracic paraspinals high tone, tender, decreased range of motioninhibitory pressure/"rib raising" patient tolerated well. Ischemic colitis/peritonitis/sepsiscontinue antibiotics, now postop. Continue current care Somatic dysfunction lower thoracic regionOMT as above, with goal of hopefully shortening the length of postop ileus Otherwise as above Subjective POD#1 s/p colectomy for necrotic ischemic bowel. Extubated this morning by ICU. Feeling much better than yesterday. Still having significant abdominal pain with palpation. No bowel gas or bowel movements yet. No fevers, chills, SOB. Review of Systems Review of Systems: All systems reviewed & are unremarkable except as noted in Subjective Physical Exam Physical Exam: Constitutional: elderly, fatigued but well appearing, in NAD Neck: R IJ present Eyes: EOMI, pupils equal and reactive bilaterally, no scleral icterus Cardiac: RRR, no murmurs, gallops or rubs. Normal S1, S2 Pulm: CTA BL, no wheezes, rhonchi, crackles or rubs, moving air well throughout both lungs, breathing easily on room air Abd: tight but compressible, TTP on right side to palpation, surgical incision covered with bandages, no rebound Extremities: 2+ peripheral pulses, no edema, SCDs Neuro: no focal deficits, moving all 4 limbs, A&Ox3 Results & Data Results & Data ([facility]) Vital Signs (Past 12 Hours) Vital Signs Temp Pulse Resp BP Pulse Ox 10/18/21 07:35 90 18 97 10/18/21 06:00 94 H 18 96 10/18/21 05:50 95 H 16 96 10/18/21 05:40 96 H 19 96 10/18/21 05:30 95 H 18 96 10/18/21 05:20 96 H 16 96 10/18/21 05:10 95 H 18 96 10/18/21 05:00 96 H 19 96 10/18/21 04:50 96 H 16 96 10/18/21 04:40 95 H 18 96 10/18/21 04:35 37.5 C 10/18/21 04:30 97 H 19 96 10/18/21 04:20 96 H 16 96 10/18/21 04:10 95 H 20 96 10/18/21 04:00 95 H 18 128/70 96 10/18/21 03:50 96 H 16 96 10/18/21 03:40 95 H 19 96 10/18/21 03:30 95 H 19 96 10/18/21 03:20 94 H 16 96 10/18/21 03:10 94 H 18 96 10/18/21 03:00 94 H 18 135/73 96 10/18/21 02:20 94 H 18 97 10/18/21 02:10 94 H 18 97 10/18/21 02:00 94 H 18 132/72 97 10/18/21 01:50 94 H 18 97 10/18/21 01:40 93 H 18 97 10/18/21 01:30 93 H 19 133/39 L 97 10/18/21 01:20 94 H 18 96 10/18/21 01:10 92 H 18 96 10/18/21 01:00 92 H 19 138/74 96 10/18/21 00:50 94 H 18 96 10/18/21 00:40 93 H 18 96 10/18/21 00:30 93 H 18 96 10/18/21 00:20 92 H 18 96 10/18/21 00:10 92 H 19 96 10/18/21 00:00 37 C 92 H 20 123/67 96 10/17/21 23:50 99 H 25 H 96 10/17/21 23:40 91 H 19 97 10/17/21 23:35 90 19 97 10/17/21 23:30 90 19 97 10/17/21 23:20 89 19 97 10/17/21 23:10 89 19 97 10/17/21 23:00 90 19 138/68 97 10/17/21 22:50 87 18 97 10/17/21 22:40 89 18 97 10/17/21 22:30 88 18 97 10/17/21 22:20 88 19 97 10/17/21 22:10 89 19 97 10/17/21 22:00 89 18 136/69 97 10/17/21 21:50 90 18 96 10/17/21 21:40 90 18 96 10/17/21 21:30 92 H 19 96 10/17/21 21:20 91 H 19 96 10/17/21 21:10 92 H 19 96 10/17/21 21:00 91 H 18 132/66 96 10/17/21 20:50 90 19 96 10/17/21 20:40 92 H 18 96 10/17/21 20:30 91 H 18 96 10/17/21 20:20 91 H 18 96 Laboratory Results Laboratory Results WBC 5.53 K/uL (4.8-10.8) 10/18/21 04:22 RBC 3.31 M/uL (4.7-6.1) L 10/18/21 04:22 Hgb 9.5 g/dL (14.0-18.0) L 10/18/21 04:22 POC Hgb 8.5 g/dl (14.0-18.0) L 10/18/21 04:18 Hct 28.4 % (42-52) L 10/18/21 04:22 POC Hct 25 % (42-52) L 10/18/21 04:18 MCV 85.8 fL (80-100) 10/18/21 04:22 MCH 28.7 pg (25-34) 10/18/21 04:22 MCHC 33.5 g/dL (32-36) 10/18/21 04:22 RDW Std Deviation 57.4 fL (36.4-46.3) H 10/18/21 04:22 RDW Coeff of Ilene 20.0 % (11.5-14.5) H 10/18/21 04:22 Plt Count 130 K/uL (130-400) 10/18/21 04:22 Immature Gran % (Auto) 2.5 % 10/18/21 04:22 Neut % (Auto) 65.5 % 10/18/21 04:22 Lymph % (Auto) 21.7 % 10/18/21 04:22 [place] % (Auto) 9.4 % 10/18/21 04:22 Eos % (Auto) 0.5 % 10/18/21 04:22 Baso % (Auto) 0.4 % 10/18/21 04:22 Neut # (Auto) 3.62 K/uL (1.4-6.5) 10/18/21 04:22 Lymph # (Auto) 1.20 K/uL (1.2-3.4) 10/18/21 04:22 [place] # (Auto) 0.52 K/uL (0.11-0.59) 10/18/21 04:22 Eos # (Auto) 0.03 K/uL (0-0.5) 10/18/21 04:22 Baso # (Auto) 0.02 K/uL (0-0.2) 10/18/21 04:22 Immature Gran # (Auto) 0.14 K/uL (0.00-0.02) H 10/18/21 04:22 Absolute Nucleated RBC 0.20 K/uL (0-0) H 10/18/21 04:22 Nucleated RBC % (auto) 3.6 % 10/18/21 04:22 Neutrophils % (Manual) 65.4 % 10/17/21 16:13 Lymphocytes % (Manual) 20.4 % 10/17/21 16:13 Monocytes % (Manual) 12.4 % 10/17/21 16:13 Eosinophils % (Manual) 1.8 % 10/17/21 16:13 Metamyelocytes % (Man) 0.9 % 10/17/21 01:30 Myelocytes % (Man) 3.6 % 10/17/21 08:18 Blast Cells % (Manual) 1.8 % 10/17/21 01:30 Neutrophils # (Manual) 5.06 K/uL (1.4-6.5) 10/17/21 16:13 Total Absolute Neuts 5.06 K/uL (1.4-6.5) 10/17/21 16:13 Lymphocytes # (Manual) 1.58 K/uL (1.2-3.4) 10/17/21 16:13 Total Abs Lymphocytes 1.58 K/uL (1.2-3.4) 10/17/21 16:13 Monocytes # (Manual) 0.96 K/uL (0.11-0.59) H 10/17/21 16:13 Eosinophils # (Manual) 0.14 K/uL (0-0.5) 10/17/21 16:13 Metamyelocytes # (Man) 0.09 K/uL (0-0) H 10/17/21 01:30 Myelocytes # (Manual) 0.38 K/uL (0-0) H 10/17/21 08:18 Blast Cells # (Man) 0.18 K/uL (0-0) H 10/17/21 01:30 Toxic Vacuolation 1+ 10/17/21 16:13 Platelet Estimate Decreased (Normal) L 10/18/21 04:22 Hypochromasia Present 10/17/21 16:13 Poikilocytosis Present 10/17/21 16:13 Anisocytosis Present 10/17/21 08:18 Pappenheimer Bodies 1+ 10/17/21 01:30 Echinocytes 1+ 10/17/21 16:13 Acanthocytes (Spur) 1+ 10/17/21 08:18 PT 17.3 Seconds (9.0-12.0) H 10/18/21 04:22 INR 1.7 (0.9-1.1) H 10/18/21 04:22 APTT 29.3 Seconds (21.0-31.0) 10/17/21 03:39 PTT Ratio 1.1 10/17/21 03:39 Sample Site Art Line 10/18/21 04:18 POC pH 7.43 (7.35-7.45) 10/18/21 04:18 POC pCO2 32 mmHg (35-46) L 10/18/21 04:18 POC pO2 83 mmHg (80-95) 10/18/21 04:18 POC HCO3 21 malcolm/L (19-24) 10/18/21 04:18 POC Total CO2 22 mmol/L (24-31) L 10/18/21 04:18 POC Base Excess -4.0 malcolm/L (-9-1.8) 10/18/21 04:18 ABG pH (Temp Correct) 7.419 (7.35-7.45) 10/18/21 04:18 ABG pCO2 (Temp Corrct 32 mmHg (35-46) L 10/18/21 04:18 POC ABG pO2 at Pt Temp 86 10/18/21 04:18 POC ABG O2 Sat 97.0 % (90-95) H 10/18/21 04:18 Barry Test NA 10/18/21 04:18 O2 Delivery Device Ventilator 10/18/21 04:18 POC O2 Rate 18 10/18/21 04:18 Minute Ventilation 8.8 10/18/21 04:18 POC FiO2 30 % 10/18/21 04:18 Tidal Volume 475 10/18/21 04:18 PEEP 5 10/18/21 04:18 POC Sodium 142 mmol/L (135-144) 10/18/21 04:18 Sodium 135 mmol/L (136-145) L 10/18/21 04:22 POC Potassium 3.4 mmol/L (3.3-5.0) 10/18/21 04:18 Potassium 3.6 mmol/L (3.5-5.1) 10/18/21 04:22 POC Chloride 105 mmol/L (101-112) 10/17/21 14:37 Chloride 106 mmol/L (98-107) 10/18/21 04:22 Carbon Dioxide 22 mmol/L (21-32) 10/18/21 04:22 POC Total CO2 18 mmol/L (24-31) L 10/17/21 14:37 Anion Gap 7 (3-11) 10/18/21 04:22 POC Anion Gap 19.0 mmol/L (16-25) 10/17/21 14:37 POC BUN 18 mg/dl (7-18) 10/17/21 14:37 BUN 19 mg/dl (6-23) 10/18/21 04:22 Creatinine 0.99 mg/dl (0.6-1.4) 10/18/21 04:22 POC Creatinine 1.0 mg/dl (0.6-1.3) 10/17/21 14:37 Est Cr Clr Drug Dosing 63.5 ml/min 10/18/21 04:22 Est GFR ( Amer) 84.2 ml/min 10/18/21 04:22 Est GFR (Non-Af Amer) 72.6 ml/min 10/18/21 04:22 BUN/Creatinine Ratio 19.2 (10-20) 10/18/21 04:22 Glucose 181 mg/dl (70-99(Fasting)) H 10/18/21 04:22 POC Glucose 195 mg/dl (70-99) H 10/18/21 09:07 POC Glucose (other) 263 mg/dl (70-99) H 10/17/21 14:37 Lactate 1.5 mmol/L (0.4-2.0) 10/18/21 04:22 Calcium 7.0 mg/dl (8.5-10.1) L 10/18/21 04:22 POC Ioniz Calcium Christa 1.08 mmol/l (1.12-1.32) L 10/17/21 14:37 Phosphorus 2.1 mg/dl (2.5-4.9) L D 10/18/21 04:22 Magnesium 2.0 mg/dl (1.7-2.4) 10/18/21 04:22 Total Bilirubin 1.3 mg/dl (0.2-1.0) H 10/18/21 04:22 Direct Bilirubin 0.3 mg/dl (0-0.2) H 10/18/21 04:22 AST 53 U/L (13-39) H 10/18/21 04:22 ALT 31 U/L (7-52) 10/18/21 04:22 Alkaline Phosphatase 45 U/L (34-104) 10/18/21 04:22 Troponin I 3.15 ng/ml (0-0.04) H* 10/18/21 04:22 Total Protein 5.6 gm/dl (6.0-8.3) L 10/18/21 04:22 Albumin 3.4 gm/dl (3.4-5.0) 10/18/21 04: Globulin 1.6 gm/dl (2.5-4.0) L 10/17/21 16:13 Albumin/Globulin Ratio 2.3 (0.9-2) H 10/17/21 16:13 Procalcitonin 21.98 ng/ml (0-0.5) H 10/18/21 04:22 Urine Color Yellow 10/17/21 06:10 Urine Appearance Clear (Clear) 10/17/21 06:10 Urine pH 5.0 (4.5-7.5) 10/17/21 06:10 Ur Specific Lissie 1.041 (1.000-1.030) H 10/17/21 06:10 Urine Protein 1+ (Negative) H 10/17/21 06:10 Urine Glucose (UA) 3+ (Negative) H 10/17/21 06:10 Urine Ketones 1+ (Negative) H 10/17/21 06:10 Urine Blood 2+ (Negative) H 10/17/21 06:10 Urine Nitrite Negative (Negative) 10/17/21 06:10 Urine Bilirubin Negative (Negative) 10/17/21 06:10 Urine Urobilinogen Negative (Negative) 10/17/21 06:10 Ur Leukocyte Esterase Negative (Negative) 10/17/21 06:10 Urine WBC (Auto) 1-5 /hpf (0-5) 10/17/21 06:10 Urine RBC (Auto) 0-4 /hpf (0-4) 10/17/21 06:10 U Hyaline Cast (Auto) 0 /lpf (0-5) 10/17/21 06:10 U Epithel Cells (Auto) 5-10 /lpf (0-5) H 10/17/21 06:10 Urine Bacteria (Auto) Negative (Negative) 10/17/21 06:10 SARS-CoV-2, RNA, NAAT NEGATIVE (NEGATIVE) 10/17/21 01:46 Blood Type O Positive 10/17/21 13:03 Antibody Screen NEGATIVE 10/17/21 13:03 Crossmatch See Detail 10/17/21 13:03 Impressions Abdomen/Pelvis CT 10/17/21 01:[address] WITH IV CONTRAST CT DOSE: 636.20 mGy.cm HISTORY: Severe right lower quadrant pain. TECHNIQUE: Multiaxial CT images of the abdomen and pelvis were performed following the use of intravenous contrast. A dose lowering technique was utilized adhering to the principles of ALARA. COMPARISON STUDY: Pelvis CT 12/15/2013 and 10/18/2018. FINDINGS: Mild dependent changes seen at the lung bases. No pneumoperitoneum. No pneumatosis. Posterior fusion hardware from L3 through S1 again noted. No suspicious lytic or blastic osseous lesions. There are poststernotomy changes. The heart is mildly enlarged. The liver, gallbladder, and pancreas unremarkable. Moderate right and mild left cortical renal scarring. No hydronephrosis. There is mild bilateral perinephric edema. This is likely chronic. The main portal v ein is patent. Moderate calcified plaque within the normal caliber abdominal aorta. 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 The bladder is distended. No bladder wall thickening. The prostate gland is mildly enlarged. No retroperitoneal lymphadenopathy. No evidence for bowel obstruction. Moderate bowel wall thickening involving the cecum and proximal ascending colon with mild pericolonic fat stranding. The base of the appendix is slightly prominent compared to the prior study. However, the distal appendix is normal in caliber. This may be partially reactive to the adjacent colitis. No evidence for acute appendicitis. Bilateral adrenal gland thickening which is likely chronic. IMPRESSION: 1. Moderate wall thickening involving the cecum and ascending colon with mild pericolonic fat. This consistent with a nonspecific colitis and could represent a neutropenic colitis. 2. Mild thickening at the base of the appendix which has progressed. However, th e distal appendix is within normal limits. This may be reactive to the adjacent colitis. No definite evidence for acute appendicitis. 3. No evidence for bowel obstruction. 4. Mildly distended bladder. 5. Additional findings as described above. ACT 112: Negative or not required by law. Electronically signed by: Kvng Armando M.D. 10/17/2021 7:41 AM Mesenteric US 10/17/21 03:40 US duplex mesenteric CLINICAL HISTORY: eval for acute ischemic colitis. Severe right lower quadrant pain. COMPARISON STUDY: Abdomen and pelvis CT 10/17/2021. FINDINGS: The proximal aorta demonstrates a normal velocity. The mesenteric arteries were obscured by overlying bowel gas. IMPRESSION: Mesenteric arteries obscured by overlying bowel gas. ACT 112: Negative or not required by law. Electronically signed by: Kvng Armando M.D. 10/17/2021 7:47 AM Chest X-Ray 10/18/21 07:00 XR chest 1V portable CLINICAL HISTORY: Hypoxia TECHNIQUE: Single frontal radiograph of the chest was obtained. Comparison: Comparison is made to chest one view 10/17/2021 FINDINGS: Lines and tubes are stable. The cardiomediastinal silhouette is normal. Prominence and cephalization of the vasculature is seen. Interval worsening of faint airspace opacities. Small left pleural effusion, unchanged. IMPRESSION: Faint bibasilar airspace opacities, new from prior exam, which may represent atelectasis, pneumonia, and/or aspiration. Mild pulmonary edema, increased from prior. Small left pleural effusion. ACT 112: Negative or not required by law. Electronically signed by: Danilo Rebollar M.D. 10/18/2021 8:01 AM Resident Activity Tracking Resident Involvement: Resident Care Provided Care Provided: Adult Hospital Medicine (1) CAD (coronary artery disease), [place] coronary artery Associated angina: unspecified whether angina present [place] vs. transplanted heart: [place] heart Qualified Code(s): I25.10 - Atherosclerotic heart disease of [place] coronary artery without angina pectoris
[2021-10-18] MEDS ORDERED: METOPROLOL TARTRATE 1 MG/ML VIAL IV STA ×2 (08:14→12:07)
[2021-10-18] MEDS ORDERED: METOPROLOL TARTRATE 1 MG/ML VIAL IV ONE (08:15)
[2021-10-18] MEDS: PIPERACILLIN/TAZOBACTAM 3.375 GM in DEXTROSE 5% 100 ML IV SCH ×3 (08:30→23:02)
[2021-10-18] MEDS: HEPARIN SOD 5,000 UNIT/0.5 ML VIAL SQ SCH ×2 (08:31→20:47)
--- NOTE | 2021-10-18 09:14 | Critical Care Progress Note ---
Date of Service October 18, 2021 Assessment & Plan (1) Sepsis: (2) Lactic acidosis: (3) Peritonitis: (4) Colonic ischemia: (5) Hypertension: (6) Pulmonary edema: Plan: 80-year-old male with a history of coronary artery disease, myelodysplastic syndrome which is transfusion dependent, vascular disease, prostate cancer, vocal cord cancer and hypertension who presented with signs of peritonitis and is now post cecal resection due to ischemia. Neurologic: Extubated following commands Pulmonary: Extubated on nasal cannula. 20 mg IV Lasix given for possible pulmonary edema. Cardiovascular: History of severe peripheral vascular disease and coronary artery disease. Cardiology following for an elevated troponin likely from demand ischemia. IV metoprolol to control blood pressure and heart rate. Can remove the arterial line. Gastrointestinal: Continue pantoprazole 40 mg IV daily. Patient is status post exploratory laparotomy for peritonitis and discovered to have cecal ischemia with necrosis. Status post cecectomy on 10/17 Renal: Creatinine stable. Replacing electrolytes per ICU protocol. Infectious disease: Continue broad-spectrum antibiotics and Zosyn for abdominal coverage. Hematologic: Myelodysplastic syndrome which is transfusion dependent. We will keep a close eye on CBC and transfuse as appropriate. Endocrine: ICU pharmacist to assist in hyperglycemia management. He has a history of type 2 diabetes mellitus which is uncontrolled. Lines and tubes: Peripheral IVs and 16-gauge IV in the EJ. Brandt catheter in place. VTE prophylaxis: SCDs CODE STATUS: DNR/DNI per chart review Family at bedside: Not available bedside currently Disposition: ICU Care for needed with hospitalist team, bedside nurse and respiratory therapist I have personally spent 33 minutes of critical care time in the direct management of this patient. This is a life/limb threatening event. This includes time spent evaluating patient, direct bedside care, chart review, placing orders, interpretation of diagnostic studies, discussion with consultants, patient, and family members, as well as other required patient management activities. This time is exclusive of all separately billable procedures, and teaching time and separate from and in addition to any other critical care service time. Thank you for allowing us to participate in the care of this patient. Admission and Anticipated Discharge Date Admission Date: October 17, 2021 Subjective Patient was following commands when sedation was paused. He did extremely well with his spontaneous breathing trial and was extubated to nasal cannula. Is currently following commands. Hemodynamically stable. Given 2.5 mg of IV metoprolol prior to extubation and 20 mg of IV Lasix. Physical Exam Physical Exam: Constitutional: Patient following commands. Appears comfort able. Eyes: Pupils are equal round and reactive to light. Conjunctivae are normal. Anicteric sclera. Ears nose, mouth and throat: Endotracheal tube is in place. Neck: Trachea is midline. Visual inspection is normal. Respiratory: Clear to auscultation bilaterally. No use of accessory muscles. No significant clubbing noted. Cardiovascular: Regular rate and rhythm. 3 out of 6 systolic flow murmur. No edema of the lower extremities. Gastrointestinal: Large amount of bandaging noted on the abdomen. Diminished bowel sounds. Tenderness to palpation. Musculoskeletal: Moves all extremities spontaneously Skin: No rashes, warm dry and intact. Neurologic: No focal findings. Psychiatric: Alert and oriented Results & Data Results & Data ([facility]) Vital Signs (Past 12 Hours) Vital Signs Temp Pulse Resp BP Pulse Ox 10/18/21 07:35 90 18 97 10/18/21 06:00 94 H 18 96 10/18/21 05:50 95 H 16 96 10/18/21 05:40 96 H 19 96 10/18/21 05:30 95 H 18 96 10/18/21 05:20 96 H 16 96 10/18/21 05:10 95 H 18 96 10/18/21 05:00 96 H 19 96 10/18/21 04:50 96 H 16 96 10/18/21 04:40 95 H 18 96 10/18/21 04:35 37.5 C 10/18/21 04:30 97 H 19 96 10/18/21 04:20 96 H 16 96 10/18/21 04:10 95 H 20 96 10/18/21 04:00 95 H 18 128/70 96 10/18/21 03:50 96 H 16 96 10/18/21 03:40 95 H 19 96 10/18/21 03:30 95 H 19 96 10/18/21 03:20 94 H 16 96 10/18/21 03:10 94 H 18 96 10/18/21 03:00 94 H 18 135/73 96 10/18/21 02:20 94 H 18 97 10/18/21 02:10 94 H 18 97 10/18/21 02:00 94 H 18 132/72 97 10/18/21 01:50 94 H 18 97 10/18/21 01:40 93 H 18 97 10/18/21 01:30 93 H 19 133/39 L 97 10/18/21 01:20 94 H 18 96 10/18/21 01:10 92 H 18 96 10/18/21 01:00 92 H 19 138/74 96 10/18/21 00:50 94 H 18 96 10/18/21 00:40 93 H 18 96 10/18/21 00:30 93 H 18 96 10/18/21 00:20 92 H 18 96 10/18/21 00:10 92 H 19 96 10/18/21 00:00 37 C 92 H 20 123/67 96 10/17/21 23:50 99 H 25 H 96 10/17/21 23:40 91 H 19 97 10/17/21 23:35 90 19 97 10/17/21 23:30 90 19 97 10/17/21 23:20 89 19 97 10/17/21 23:10 89 19 97 10/17/21 23:00 90 19 138/68 97 10/17/21 22:50 87 18 97 10/17/21 22:40 89 18 97 10/17/21 22:30 88 18 97 10/17/21 22:20 88 19 97 10/17/21 22:10 89 19 97 10/17/21 22:00 89 18 136/69 97 10/17/21 21:50 90 18 96 10/17/21 21:40 90 18 96 10/17/21 21:30 92 H 19 96 10/17/21 21:20 91 H 19 96 10/17/21 21:10 92 H 19 96 Coding Level of Care Code Critical Care 1st 30-74 mins Diagnoses Sepsis A41.9 Sepsis acute organ dysfunction status: unspecified Sepsis type: sepsis due to unspecified organism Lactic acidosis E87.2 Peritonitis K65.9 Colonic ischemia K55.9 Hypertension I10 Pulmonary edema J81.1 Time Spent (min) 33 (1) Sepsis Sepsis acute organ dysfunction status: unspecified Sepsis type: sepsis due to unspecified organism Qualified Code(s): A41.9 - Sepsis, unspecified organism
[2021-10-18] MEDS: INSULIN ASPART PER UNIT SC SCH ×4 (09:23→20:45)
[2021-10-18] MEDS: INSULIN GLARGINE SOLOSTAR 100 UNITS/ML 3 ML PEN SC SCH ×2 (09:29→20:46)
[2021-10-18] MEDS: HYDROmorphone INJ 0.5 MG/0.5 ML SYR IV PRN ×4 (11:15→19:26)
--- NOTE | 2021-10-18 11:21 | Cardiology Progress Note ---
Date of Service October 18, 2021 Assessment & Plan (1) Sepsis: (2) Elevated troponin: (3) Coronary artery disease involving coronary bypass graft: Plan: Patient is a 80-year-old diabetic male with longstanding history of diffuse vascular disease and ischemic heart disease status post remote coronary bypass grafting 1994 with stable class II-III angina pectoris. He presents this admission with 2 days history of worsening abdominal pain abdominal distention possible acute abdomen with laboratory parameters consistent with sepsis. He is referred for further medical evaluation and management. Troponin is elevated and patient is tachycardic, hypertensive and marked discomfort. Issues are addressed as follows 1. Status post exploratory laparotomy which discovered cecal ischemia and necrosis status post resection. 2. Tachycardia/hypertension IV Lopressor was held while patient was sedated due to hypotension. Patient now tachycardic and hypertensive status post extubation. Still not taking n.p.o. with NG tube in place. Will start metoprolol I V 5 mg every 6 hours. We will continue to follow closely 3. Elevated troponin secondary to type II demand ischemia in association with hypertension, tachycardia, and metabolic demands of sepsis and beta-irving withdrawal. As above IV beta-blockers will be added topical nitrates as blood pressure allows. EKG without acute ischemic change. Echo performed with patient in sinus tachycardia demonstrates prior documented apical inferior and anteroseptal wall motion abnormalities. Mild accentuation of hypokinesis inferior base but preserved LV systolic function. Anticoagulation contraindicated Cardiology will follow Admission and Anticipated Discharge Date Admission Date: October 17, 2021 Subjective Patient seen and examined, chart reviewed and case discussed with critical care team. Currently patient is extubated and responding appropriately to questions. Still with significant abdominal pain. Denies any chest pain. NG tube in place. Telemetry reviewed: Sinus/sinus tachycardia Review of Systems Review of Systems: All systems reviewed & are unremarkable except as noted in HPI & below Physical Exam Physical Exam: General: Awake, alert and oriented x 3. No acute distress. HEENT: Normocephalic, atraumatic. Pupils equal, round and reactive to light and accommodation. Extraocular muscles are intact. Anicteric sclera. Moist mucous membranes. Neck: No JVD. No bruit. Cardiovascular: Regular. Positive S-4. Normal S-1 and S-2. No S-3. No murmurs or rubs. Pulmonary: Clear to auscultation B/L. No rales, rhonchi or wheezing Abdomen: Deferred Extremities: No clubbing, cyanosis or edema. +2 pedal pulses bilaterally. Skin: Warm and dry. Results & Data ([facility]) Vital Signs (Past 12 Hours) Vital Signs Temp Pulse Resp BP Pulse Ox 10/18/21 10:31 37.5 C 10/18/21 09:10 37.4 C 10/18/21 07:35 90 18 97 10/18/21 06:00 94 H 18 96 10/18/21 05:50 95 H 16 96 10/18/21 05:40 96 H 19 96 10/18/21 05:30 95 H 18 96 10/18/21 05:20 96 H 16 96 10/18/21 05:10 95 H 18 96 10/18/21 05:00 96 H 19 96 10/18/21 04:50 96 H 16 96 10/18/21 04:40 95 H 18 96 10/18/21 04:35 37.5 C 10/18/21 04:30 97 H 19 96 10/18/21 04:20 96 H 16 96 10/18/21 04:10 95 H 20 96 10/18/21 04:00 95 H 18 128/70 96 10/18/21 03:50 96 H 16 96 10/18/21 03:40 95 H 19 96 10/18/21 03:30 95 H 19 96 10/18/21 03:20 94 H 16 96 10/18/21 03:10 94 H 18 96 10/18/21 03:00 94 H 18 135/73 96 10/18/21 02:20 94 H 18 97 10/18/21 02:10 94 H 18 97 10/18/21 02:00 94 H 18 132/72 97 10/18/21 01:50 94 H 18 97 10/18/21 01:40 93 H 18 97 10/18/21 01:30 93 H 19 133/39 L 97 10/18/21 01:20 94 H 18 96 10/18/21 01:10 92 H 18 96 10/18/21 01:00 92 H 19 138/74 96 10/18/21 00:50 94 H 18 96 10/18/21 00:40 93 H 18 96 10/18/21 00:30 93 H 18 96 10/18/21 00:20 92 H 18 96 03/05/22 00:10 92 H 19 96 10/18/21 00:00 37 C 92 H 20 123/67 96 10/17/21 23:50 99 H 25 H 96 10/17/21 23:40 91 H 19 97 10/17/21 23:35 90 19 97 10/17/21 23:30 90 19 97 (1) Coronary artery disease involving coronary bypass graft Associated angina: with stable angina [place] vs. transplanted heart: [place] heart Qualified Code(s): I25.708 - Atherosclerosis of coronary artery bypass graft(s), unspecified, with other forms of angina pectoris (2) Sepsis Sepsis acute organ dysfunction status: unspecified Sepsis type: sepsis due to unspecified organism Qualified Code(s): A41.9 - Sepsis, unspecified organism
[2021-10-18] MEDS: PANTOprazole 40 MG in SYRINGE 0 ML IV SCH (12:34)
[2021-10-18] MEDS ORDERED: methylPREDNISolone 10 MG in SYRINGE 0 ML IV ONE (14:15)
--- NOTE | 2021-10-18 17:09 | Hospitalist Progress Note ---
Date of Service October 18, 2021 Assessment & Plan Admission and Anticipated Discharge Date Admission Date: October 17, 2021 Results & Data Results & Data ([facility]) Vital Signs (Past 12 Hours) Vital Signs Temp Pulse Resp BP Pulse Ox 10/18/21 14:33 99.7 F H 10/18/21 14:00 99 H 22 141/88 H 96 10/18/21 13:45 98 H 26 H 95 10/18/21 13:30 97 H 27 H 144/77 H 95 10/18/21 13:15 95 H 27 H 95 10/18/21 13:00 97 H 27 H 128/78 96 10/18/21 12:45 91 H 25 H 95 10/18/21 12:42 99.7 F H 10/18/21 12:30 100 H 19 154/84 H 96 10/18/21 12:15 99 H 18 96 10/18/21 12:00 99 H 24 159/81 H 95 10/18/21 11:45 99 H 26 H 95 10/18/21 11:30 98 H 15 158/82 H 95 10/18/21 11:15 101 H 26 H 95 10/18/21 11:00 101 H 20 160/78 H 96 10/18/21 10:45 100 H 21 96 10/18/21 10:31 99.5 F 10/18/21 10:30 99 H 28 H 145/120 H 96 10/18/21 10:15 97 H 24 96 10/18/21 10:00 94 H 23 97 10/18/21 09:45 96 H 20 97 10/18/21 09:30 94 H 15 98 10/18/21 09:15 96 H 18 98 10/18/21 09:10 99.3 F 10/18/21 09:00 93 H 17 98 10/18/21 08:45 93 H 17 97 10/18/21 08:30 93 H 24 96 10/18/21 08:15 104 H 19 97 10/18/21 08:00 90 16 97 10/18/21 07:45 92 H 16 97 10/18/21 07:35 90 18 97 10/18/21 07:30 92 H 16 97 10/18/21 07:15 91 H 16 97 10/18/21 07:00 93 H 16 97 10/18/21 06:45 92 H 18 97 03/05/22 06:30 93 H 18 97 10/18/21 06:15 92 H 18 97 10/18/21 06:00 94 H 18 96 10/18/21 05:50 95 H 16 96 10/18/21 05:40 96 H 19 96 10/18/21 05:30 95 H 18 96 10/18/21 05:20 96 H 16 96 10/18/21 05:10 95 H 18 96 PG Care Time/CCT Total # of Minutes Spent Total Time Spent with Patient: Total time spent is greater than 50% in coordination of care (as documented) at patient's floor/unit and/or counseling patient: Coding Level of Care Code None CPT Codes Musculoskeletal - Musculoskeletal: [address] 1-2 Body regions ([id number])
--- NOTE | 2021-10-18 17:09 | Billing Data ---
Date of Service October 18, 2021 Coding Level of Care Code 98891 Subseq Hosp Care Lvl 2
[2021-10-18] MEDS ORDERED: ICU ELECTROLYTE REPLACEMENT PROTOCOL SCH (18:00)
[2021-10-18] MEDS: METOPROLOL TARTRATE 1 MG/ML VIAL IV SCH ×2 (18:02→23:01)
[2021-10-19 04:22] LABS: Mean Corpuscular Hgb Conc 33.3 g/dL (32-36); Nucleated RBC # (auto) 0.25 K/uL (0-0)
[2021-10-19 04:31] LABS: Hematocrit (blood only) 29.1 % (42-52); Hemoglobin 9.7 g/dL (14.0-18.0); Mean Corpuscular Hemoglobin 28.7 pg (25-34); Mean Corpuscular Volume 86.1 fL (80-100); RDW Coefficient of Variation 19.7 % (11.5-14.5); RDW Standard Deviation 55.7 fL (36.4-46.3); Red Blood Count 3.38 M/uL (4.7-6.1); White Blood Count 8.42 K/uL (4.8-10.8)
[2021-10-19 04:48] LABS: BUN Creatinine Ratio 20.4 (10-20); Calcium 8.2 mg/dl (8.5-10.1); Creatinine Clr Calc Pharmacy 64.1 ml/min; Est GFR (African American) 85.2 ml/min; Est GFR (Non-African American) 73.6 ml/min; Magnesium 2.1 mg/dl (1.7-2.4); Phosphorus 2.4 mg/dl (2.5-4.9)
[2021-10-19 05:01] LABS: Platelet Count 123 K/uL (130-400)
[2021-10-19 05:02] LABS: ALC (manual) 0.81 K/uL (1.2-3.4); ANC (manual) 6.79 K/uL (1.4-6.5); Anisocytosis Present; Dohle Bodies 1+; Lymphocytes # (manual) 0.81 K/uL (1.2-3.4); Lymphocytes % (manual) 9.6 %; Metamyelocytes # (manual) 0.08 K/uL (0-0); Metamyelocytes % (manual) 0.9 %; Monocytes # (manual) 0.59 K/uL (0.11-0.59); Myelocytes # (manual) 0.15 K/uL (0-0); Myelocytes % (manual) 1.8 %; Neutrophils # (manual) 6.79 K/uL (1.4-6.5); Neutrophils % (manual) 80.7 %; Platelet Estimate Normal (Normal); Poikilocytosis Present; Polychromasia 1+
[2021-10-19] MEDS: ACETAMINOPHEN 1,000 MG/100 ML VIAL IV SCH ×3 (05:04→21:04)
[2021-10-19] MEDS: METOPROLOL TARTRATE 1 MG/ML VIAL IV SCH ×4 (05:06→23:23)
--- NOTE | 2021-10-19 06:56 | Surgery Progress Note ---
Date of Service October 19, 2021 Assessment & Plan (1) H/O colectomy: Plan: Patient moved to the PCU Vital signs are stable without pressors Minimal from NG tube-we will remove Abdomen is soft Continue n.p.o., IV antibiotics Try to mobilize Admission and Anticipated Discharge Date Admission Date: October 17, 2021 Results & Data ([facility]) Vital Signs (Past 12 Hours) Vital Signs Temp Pulse Pulse Resp BP BP Pulse Ox 10/19/21 06:21 95 H 10/19/21 05:06 93 H 155/90 H 10/19/21 02:19 37.0 C 94 H 18 155/90 H 96 10/19/21 00:00 90 10/18/21 23:14 37.3 C 89 16 147/84 H 95 10/18/21 23:01 98 H 149/80 H 10/18/21 21:30 95 H 21 164/99 H 95 10/18/21 21:15 95 H 22 96 10/18/21 21:00 95 H 26 H 157/89 H 96 10/18/21 20:45 97 H 20 95 10/18/21 20:31 95 H 24 168/90 H 96 10/18/21 20:30 94 H 24 175/88 H 96 10/18/21 20:15 92 H 96 10/18/21 20:00 37.5 C 96 H 19 157/88 H 96 10/18/21 19:45 94 H 23 95 10/18/21 19:30 95 H 96 10/18/21 19:15 97 H 97 10/18/21 19:00 95 H 166/78 H 96 PG Care Time/CCT Total # of Minutes Spent Total Time Spent with Patient: Total time spent is greater than 50% in coordination of care (as documented) at patient's floor/unit and/or counseling patient: Coding Level of Care Code None Diagnoses H/O colectomy Z90.49
[2021-10-19] MEDS: propofoL 1,000 MG/100 ML VIAL IV SCH (07:05)
[2021-10-19] MEDS: HYDROmorphone INJ 0.5 MG/0.5 ML SYR IV PRN (07:33)
--- NOTE | 2021-10-19 08:27 | XRay Report ---
XR KUB/Abdomen 1 view CLINICAL HISTORY: NGT placement. COMPARISON STUDY: No previous studies for comparison. TECHNIQUE: Single view of the abdomen. FINDINGS: There are mildly dilated fluid-filled loops of small bowel without gross obstruction. NG tube has bee n placed with its tip in the gastric fundus. There is no evidence for organomegaly or gross intra-abd ominal mass. No abnormal calcifications are seen along the course of the urinary tracts bilaterally. No acute osseous pathology. IMPRESSION: 1.Mildly dilated air-filled loops of small bowel are present with no gross obstruction. 2. Tip of NG tube in gastric fundus. ACT 112: Negative or not required by law. Electronically signed by: Bill Cool M.D. 10/19/2021 8:25 AM
[2021-10-19] MEDS: INSULIN ASPART PER UNIT SC SCH ×4 (08:46→20:22)
[2021-10-19] MEDS: HEPARIN SOD 5,000 UNIT/0.5 ML VIAL SQ SCH ×2 (08:47→20:55)
[2021-10-19] MEDS: INSULIN GLARGINE SOLOSTAR 100 UNITS/ML 3 ML PEN SC SCH ×2 (08:47→21:32)
[2021-10-19] MEDS: PIPERACILLIN/TAZOBACTAM 3.375 GM in DEXTROSE 5% 100 ML IV SCH ×3 (08:51→23:42)
--- NOTE | 2021-10-19 10:56 | Hospitalist Progress Note ---
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 POD#2 s/p colectomy for ischemic bowel necrosis - taken for ExLap by surgery 10/17 for acute peritonitis, found 3cm necrotic cecum that was removed and small bowel reapproximated without ostomy bag placement - continue zosyn for empiric coverage of bacteremia/necrotic infection since 10/17 - continue IVF - WBC downtrended, will continue to monitor in setting of hx pancytopenia - NPO pending return of bowel function Pain Control - scheduled 0.25 mg dilaudid Q3h for basal pain control - 0.5 mg dilaudid Q3HWA PRN breakthrough pain - avoiding NSAIDs during surgical recovery. Tylenol IV 1g Q8H scheduled. Lactic acidosis 2/2 bowel ischemia- resolved A-fib with RVR - stable - H/o atrial flutter but not on chronic AC. - appreciate cardiology's continuing input. currently on IV BB while NPO for BP and sinus tach control - heparin for DVT ppx Elevated Troponin - resolved - secondary to demand ischemia from sepsis - downtrended Electrolyte Abnormalities - resolved - monitor BMPs MDS with Pancytopenia and Transfusion-Dependence - last transfusion a few days ago, Hgb 11.2 on presentation. - transfusion goal of >10.0 - trend CBC daily Hyperbilirubinemia - downtrending, may warrant outpatient RUQ US/HIDA CAD/PAD - TTE on 10/17 - moderate concentric left ventricular hypertrophy. apical inferior and anterior septum hypokinesis, basilar and mid inferior wall mild hypokinesis (chronic). - EF: 55-60 - LA mildly dilated, mild valvular aortic stenosis, trace aortic regurg, mild to mod mitral regurg, mod tricuspid regurg, RVP elevated at 40-50mmHG - restart daily ASA, monitor for bleeding post op - cardiology recommendations as above Chronic Medical Conditions HTN: hold Lisinopril and Atenolol for now T2DM: SSI while hospitalized, with reduced Lantus dosing due to NPO and sepsis GERD: IV pantoprazole while NPO HLD: hold statin while NPO BPH: hold Flomax while NPO FEN/GI: NPO, NSS @125cc/hr, monitor I/O DVT Prophylaxis: SCDs, heparin 5,000u BID Code Status: DNR/DNI, but okay with intubation outside of cardiac arrest Disposition: downgraded to PCU/tele (2) Lactic acidosis: (3) Hypokalemia: (4) Hypomagnesemia: (5) Hypocalcemia: (6) Hyperbilirubinemia: (7) Elevated troponin: (8) Status post CVA: (9) Prostate cancer: (10) CAD (coronary artery disease), [place] coronary artery: (11) PAD (peripheral artery disease): (12) Hypertension: (13) Hyperlipidemia: (14) Gastroesophageal reflux disease: (15) Benign prostate hyperplasia: (16) Pancytopenia: (17) Myelodysplastic syndrome: Admission and Anticipated Discharge Date Admission Date: October 17, 2021 Supervising Physician Co-Signing Physician Notes I personally examined the patient and verified all ceballos points of history and exam, discussed case, and agree with decision making with Dr Rios has some abdominal pain - not at all worse since NG removed, again asks good questions about his overall recovery. i answer to the best of my ability. Vitals noted, in general he is awake and alert pleasant no distress. Very fatigued. HEENT normocephalic atraumatic mucous membranes moist. Breathing unlabored no accessory muscle use good effort. Skin shows no rashes no pallor or icterus. Neuro without focal deficits. R>L lower thoracic paraspinals high tone, tender, decreased range of motioninhibitory pressure/"rib raising" patient tolerated well. Ischemic colitis/peritonitis/sepsiscontinue antibiotics, now postop. Continue current care Somatic dysfunction lower thoracic regionOMT as above, with goal of hopefully shortening the length of postop ileus Otherwise as above Subjective feeling well this morning. still having basal abdominal pain. denies passing gas or bowel movements. Review of Systems Review of Systems: All systems reviewed & are unremarkable except as noted in Subjective Physical Exam Physical Exam: Constitutional: elderly, fatigued but well appearing, in NAD Neck: R IJ present Eyes: EOMI, pupils equal and reactive bilaterally, no scleral icterus Cardiac: RRR, no murmurs, gallops or rubs. Normal S1, S2 Pulm: CTA BL, no wheezes, rhonchi, crackles or rubs, moving air well throughout both lungs, breathing easily on room air Abd: softer, TTP on right side to palpation, surgical incision covered with bandages, no rebound Extremities: 2+ peripheral pulses, no edema, SCDs Neuro: no focal deficits, moving all 4 limbs, A&Ox3 Results & Data Results & Data ([facility]) Vital Signs (Past 12 Hours) Vital Signs Temp Pulse Pulse Pulse Resp BP BP 10/19/21 07:38 36.7 C 88 20 165/79 H 10/19/21 06:40 85 10/19/21 06:21 95 H 10/19/21 05:06 93 H 155/90 H 10/19/21 02:19 37.0 C 94 H 18 155/90 H 10/19/21 00:00 90 10/18/21 23:14 37.3 C 89 16 147/84 H 10/18/21 23:01 98 H 149/80 H Pulse Ox 10/19/21 07:38 95 10/19/21 06:40 10/19/21 06:21 10/19/21 05:06 10/19/21 02:19 96 10/19/21 00:00 10/18/21 23:14 95 10/18/21 23:01 Resident Activity Tracking Resident Involvement: Resident Care Provided Care Provided: Adult Hospital Medicine (1) CAD (coronary artery disease), [place] coronary artery Associated angina: unspecified whether angina present [place] vs. transplanted heart: [place] heart Qualified Code(s): I25.10 - Atherosclerotic heart disease of [place] coronary artery without angina pectoris
[2021-10-19] MEDS: SODIUM CHLORIDE 0.9% 1000ML 1,000 ML IV SCH ×2 (11:27→19:36)
[2021-10-19] MEDS: HYDROmorphone INJ 0.5 MG/0.5 ML SYR IV SCH ×4 (11:28→20:54)
[2021-10-19] MEDS: PANTOprazole 40 MG in SYRINGE 0 ML IV SCH (11:35)
[2021-10-19] MEDS: ENALAPRILAT 1.25 MG in DEXTROSE 5% 25 ML IV SCH ×3 (12:46→23:23)
--- NOTE | 2021-10-19 14:10 | Cardiology Progress Note ---
Date of Service October 19, 2021 Assessment & Plan (1) Sepsis: (2) Elevated troponin: (3) Coronary artery disease involving coronary bypass graft: Plan: Patient is a 80-year-old diabetic male with longstanding history of diffuse vascular disease and ischemic heart disease status post remote coronary bypass grafting 1994 with stable class II-III angina pectoris. He presents this admission with 2 days history of worsening abdominal pain abdominal distention possible acute abdomen with laboratory parameters consistent with sepsis. He is referred for further medical evaluation and management. Troponin is elevated and patient is tachycardic, hypertensive and marked discomfort. Issues are addressed as follows 1. Status post exploratory laparotomy which discovered cecal ischemia and necrosis status post resection. 2. Tachycardia/hypertension IV Lopressor was held while patient was sedated due to hypotension. Patient now tachycardic and hypertensive status post extubation. Still not taking n.p.o. with NG tube in place. We will continue current IV metoprolol and I will also add Vasotec 1.25 mg IV every 6 hours which may be increased as necessary. Consideration may also be given to using IV hydralazine cautiously while the patient remains n.p.o. 3. Elevated troponin secondary to type II demand ischemia in association with hypertension, tachycardia, and metabolic demands of sepsis and beta-irving withdrawal. As above IV beta-blockers will be added topical nitrates as blood pressure allows. EKG without acute ischemic change. Echo performed with patient in sinus tachycardia demonstrates prior documented apical inferior and anteroseptal wall motion abnormalities. Mild accentuation of hypokinesis inferior base but preserved LV systolic function. Anticoagulation contraindicated Cardiology will follow Admission and Anticipated Discharge Date Admission Date: October 17, 2021 Subjective Patient seen and examined, chart reviewed. Patient much more alert and responding appropriately today. Still with abdominal discomfort but improved since admission. Continues to deny chest pain, shortness of breath or palpi tations. Telemetry reviewed: Sinus rhythm without arrhythmia Review of Systems Review of Systems: All systems reviewed & are unremarkable except as noted in HPI & below Physical Exam Physical Exam: General: Awake, alert and oriented x 3. No acute distress. HEENT: Normocephalic, atraumatic. Pupils equal, round and reactive to light and accommodation. Extraocular muscles are intact. Anicteric sclera. Moist mucous membranes. Neck: No JVD. No bruit. Cardiovascular: Regular. Positive S-4. Normal S-1 and S-2. No S-3. No murmurs or rubs. Pulmonary: Clear to auscultation B/L. No rales, rhonchi or wheezing Abdomen: Deferred Extremities: No clubbing, cyanosis or edema. +2 pedal pulses bilaterally. Skin: Warm and dry. Results & Data ([facility] [place]) Vital Signs (Past 12 Hours) Vital Signs Temp Pulse Pulse Pulse Resp BP BP 10/19/21 12:40 155/77 H 10/19/21 11:29 92 H 164/78 H 10/19/21 11:17 37.2 C 92 H 18 164/78 H 10/19/21 11:10 10/19/21 07:38 36.7 C 88 20 165/79 H 10/19/21 06:40 85 10/19/21 06:21 95 H 10/19/21 05:06 93 H 155/90 H 10/19/21 02:19 37.0 C 94 H 18 155/90 H Pulse Ox 10/19/21 12:40 10/19/21 11:29 10/19/21 11:17 94 10/19/21 11:10 87 L 10/19/21 07:38 95 10/19/21 06:40 10/19/21 06:21 10/19/21 05:06 10/19/21 02:19 96 (1) Sepsis Sepsis acute organ dysfunction status: unspecified Sepsis type: sepsis due to unspecified organism Qualified Code(s): A41.9 - Sepsis, unspecified organism (2) Coronary artery disease involving coronary bypass graft [place] vs. transplanted heart: [place] heart Associated angina: with stable angina Qualified Code(s): I25.708 - Atherosclerosis of coronary artery bypass graft(s), unspecified, with other forms of angina pectoris
--- NOTE | 2021-10-19 14:22 | Billing Data ---
Date of Service October 19, 2021 Coding Level of Care Code 74361 Subseq Hosp Care Lvl 3
[2021-10-20] MEDS: SODIUM CHLORIDE 0.9% 1000ML 1,000 ML IV SCH ×2 (02:51→12:01)
[2021-10-20] MEDS: METOPROLOL TARTRATE 1 MG/ML VIAL IV SCH ×4 (05:19→23:53)
[2021-10-20] MEDS: ACETAMINOPHEN 1,000 MG/100 ML VIAL IV SCH (05:20)
[2021-10-20] MEDS: ENALAPRILAT 1.25 MG in DEXTROSE 5% 25 ML IV SCH (05:31)
--- NOTE | 2021-10-20 05:39 | Hospitalist Progress Note ---
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 Ischemic Bowel with Peritonitis -- s/p ex-lap and colectomy on 10/17 - taken for ExLap by surgery 10/17 for acute peritonitis, found 3cm necrotic cecum that was removed and small bowel reapproximated without ostomy bag placement - Pain control: - scheduled Dilaudid 0.25mg IV Q3h for basal pain control -- can space apart / decrease as tolerated - Dilaudid 0.5mg IV Q3HWA PRN breakthrough pain, will monitor - Tylenol IV 1g Q8H scheduled. - avoiding NSAIDs during surgical recovery. - continue Zosyn for empiric coverage (started 10/17) -- thankfully, afebrile, no leukocytosis - continue IVF (80cc/hr) - Surgery actively following: transition to sips/chips, popsicles (still NPO otherwise); can consider clears tomorrow Lactic acidosis 2/2 bowel ischemia- resolved Sinus Tachycardia with Frequent Atrial Ectopy -- resolved - Sinus tachycardia with frequent atrial ectopy (originally thought to be AFib w/ RVR) appreciated while in ICU - Cardiology following, appreciate their recommendations: - Continue Lopressor 5mg IV q6h Elevated Troponin - without ECG changes, subsequently resolved - Secondary to demand ischemia secondary to sepsis, HTN, and beta-blockade withdrawal - Downtrended beginning 10/18, no symptoms since that time - TTE performed while here: apical inferior and anteroseptal WMAs, hypokinesis of inferior base but preserved LV function Electrolyte Abnormalities - resolved - monitor BMPs MDS with Pancytopenia and Transfusion-Dependence - Last transfused on 10/17, day of admission (Hgb 11.2 on admission) - transfusion goal of >10.0 - trend CBC daily Indirect Hyperbilirubinemia - In setting of mild transaminitis appreciated on admission -- chronicity unknown - Stable since 10/18 -- suspect secondary to Gilbert's versus ?NAFL - Recheck CMP tomorrow - Consider US as outpatient CAD -- s/p CABG in 1994 with Class 2/3 angina, follows with [facility] - TTE on 10/17 - moderate concentric left ventricular hypertrophy. apical inferior and anterior septum hypokinesis, basilar and mid inferior wall mild hypokinesis (chronic). - EF: 55-60% - LA mildly dilated, mild valvular aortic stenosis, trace aortic regurg, mild to mod mitral regurg, mod tricuspid regurg, RVP elevated at 40-50mmHG - restart daily ASA, statin when tolerating PO - cardiology recommendations as above Chronic Medical Conditions HTN: Enalapril, lopressor (both IV) -- continue lisinopril, atenolol once tolerating PO T2DM: SSI while hospitalized, with reduced Lantus dosing due to NPO and sepsis GERD: IV pantoprazole while NPO HLD: hold statin while NPO BPH: hold Flomax while NPO FEN/GI: NPO, OK for sips and chips per surgery; NSS @ 80cc/hr DVT Prophylaxis: SCDs, heparin 5,000u BID Code Status: DNR/DNI, but okay with intubation outside of cardiac arrest Disposition: PCU Consults: Cardiology, General Surgery, PT/OT (2) Lactic acidosis: (3) Hypokalemia: (4) Hypomagnesemia: (5) Hypocalcemia: (6) Hyperbilirubinemia: (7) Elevated troponin: (8) Status post CVA: (9) Prostate cancer: (10) CAD (coronary artery disease), [place] coronary artery: (11) PAD (peripheral artery disease): (12) Hypertension: (13) Hyperlipidemia: (14) Gastroesophageal reflux disease: (15) Benign prostate hyperplasia: (16) Pancytopenia: (17) Myelodysplastic syndrome: Admission and Anticipated Discharge Date Admission Date: October 17, 2021 Supervising Physician Co-Signing Physician Notes Resident Physician Supervision Note: I independently interviewed and examined the patient and verified the ceballos history and physical, reviewed labs and image studies and agree with resident Dr. Matamoros findings and care plan. Subjective No acute events overnight. Patient reports feeling well overall. Denies abdominal pain. Says he is not passed gas. Denies any shortness of breath. Denies any sense of appetite. Says he is still not been able to get up because of weakness. Review of Systems Review of Systems: As per HPI Physical Exam Physical Exam: General: Tired but otherwise well-appearing 80-year-old male in no acute distress. Nontoxic. Cardiac: Normal rate and regular rhythm; S1 and S2 present with no murmurs, rubs, or gallops. Pulmonary: Good respiratory effort with symmetric expansion of the chest. No use of accessory muscles. Lungs were clear to auscultation bilaterally with no crackles or wheezes. Abdominal: Normoactive bowel sounds. Palpation of the abdomen reveals mild distention without firmness, no rebound or guarding. Surgical bandage is clean and intact. Extremities: Upper and lower extremities are warm and well perfused. Results & Data Results & Data ([facility]) Vital Signs (Past 12 Hours) Vital Signs Temp Pulse Pulse Pulse Resp BP BP 10/20/21 05:19 88 180/77 H 10/20/21 05:18 88 180/77 H 10/20/21 03:34 36.6 C 88 16 164/85 H 10/19/21 23:23 82 178/72 H 10/19/21 23:22 82 178/72 H 10/19/21 23:00 78 10/19/21 22:50 36.6 C 80 16 166/69 H 10/19/21 19:40 36.8 C 84 16 155/76 H 10/19/21 18:17 85 128/69 10/19/21 17:47 89 155/71 H 10/19/21 17:38 89 155/71 H Pulse Ox 10/20/21 05:19 10/20/21 05:18 95 10/20/21 03:34 96 10/19/21 23:23 10/19/21 23:22 10/19/21 23:00 10/19/21 22:50 98 10/19/21 19:40 97 10/19/21 18:17 10/19/21 17:47 10/19/21 17:38 Resident Activity Tracking Resident Involvement: Resident Care Provided Care Provided: Adult Hospital Medicine (1) CAD (coronary artery disease), [place] coronary artery Associated angina: unspecified whether angina present [place] vs. transplanted heart: [place] heart Qualified Code(s): I25.10 - Atherosclerotic heart disease of [place] coronary artery without angina pectoris
[2021-10-20 07:18] LABS: Mean Corpuscular Hgb Conc 32.1 g/dL (32-36); Nucleated RBC # (auto) 0.42 K/uL (0-0)
[2021-10-20 07:25] LABS: BUN Creatinine Ratio 29.9 (10-20); Calcium 7.2 mg/dl (8.5-10.1); Creatinine Clr Calc Pharmacy 72.3 ml/min; Est GFR (African American) 95.8 ml/min; Est GFR (Non-African American) 82.7 ml/min; Magnesium 2.1 mg/dl (1.7-2.4); Phosphorus 1.9 mg/dl (2.5-4.9); Potassium 3.7 mmol/L (3.5-5.1)
[2021-10-20 07:33] LABS: Hematocrit (blood only) 30.5 % (42-52); Hemoglobin 9.8 g/dL (14.0-18.0); Mean Corpuscular Hemoglobin 27.8 pg (25-34); Mean Corpuscular Volume 86.4 fL (80-100); RDW Coefficient of Variation 19.8 % (11.5-14.5); RDW Standard Deviation 57.6 fL (36.4-46.3); Red Blood Count 3.53 M/uL (4.7-6.1); White Blood Count 8.29 K/uL (4.8-10.8)
[2021-10-20] MEDS: PIPERACILLIN/TAZOBACTAM 3.375 GM in DEXTROSE 5% 100 ML IV SCH ×3 (07:54→23:42)
[2021-10-20] MEDS: INSULIN ASPART PER UNIT SC SCH ×4 (07:55→21:22)
[2021-10-20 07:58] LABS: ALC (manual) 1.54 K/uL (1.2-3.4); ANC (manual) 6.01 K/uL (1.4-6.5); Anisocytosis Present; Eosinophils # (manual) 0.07 K/uL (0-0.5); Eosinophils % (manual) 0.9 %; Lymphocytes # (manual) 1.54 K/uL (1.2-3.4); Lymphocytes % (manual) 18.6 %; Monocytes # (manual) 0.59 K/uL (0.11-0.59); Monocytes % (manual) 7.1 %; Myelocytes # (manual) 0.07 K/uL (0-0); Myelocytes % (manual) 0.9 %; Neutrophils # (manual) 6.01 K/uL (1.4-6.5); Neutrophils % (manual) 72.5 %; Platelet Count 110 K/uL (130-400); Platelet Estimate Decreased (Normal); Poikilocytosis Present
[2021-10-20] MEDS: INSULIN GLARGINE SOLOSTAR 100 UNITS/ML 3 ML PEN SC SCH ×2 (08:00→21:04)
[2021-10-20] MEDS: HYDROmorphone INJ 0.5 MG/0.5 ML SYR IV SCH ×4 (08:00→17:06)
[2021-10-20] MEDS: HEPARIN SOD 5,000 UNIT/0.5 ML VIAL SQ SCH ×2 (08:01→21:03)
--- NOTE | 2021-10-20 08:35 | Surgery Progress Note ---
Date of Service October 20, 2021 Assessment & Plan (1) H/O colectomy: Plan: POD#3 exlap with R colectomy and ileocolic anastomosis Pt appears to be doing fairly well. WBC 8.2, pt afebrile Tolerated NGT removal yesterday. No n/v. May start ice/sips and popsicles today....maybe consider clears tomorrow Incisions c/d/i with nigel in place. Pt's abdomen soft with mild distention and some blas-incisional ttp Pt is weak, will benefit from PT/OT Awaiting return of bowel function Admission and Anticipated Discharge Date Admission Date: October 17, 2021 Subjective Patient says he is feeling well. Has some abdominal pain, but is manageable. Tolerated NGT removal yesterday and denies nausea/vomiting. No flatus/BM yet. Physical Exam Physical Exam: awake/alert, lying in bed Respiratory: normal respiratory effort Gastrointestinal (Abdomen): Inspection/Auscultation: + abdomen distended and + abdominal surgical incision (c/d/i with midline sandee and nigel drain, no signs of infection) Percussion/Palpation: + abdomen tender (some blas- incisional discomfort to palpation and in RLQ) and abdomen soft Results & Data ([facility]) Vital Signs (Past 12 Hours) Vital Signs Temp Pulse Pulse Pulse Resp BP BP 10/20/21 07:27 36.5 C 82 20 163/60 H 10/20/21 06:39 36.5 C 79 18 160/78 H 10/20/21 05:19 88 180/77 H 10/20/21 05:18 88 180/77 H 10/20/21 03:34 36.6 C 88 16 164/85 H 10/19/21 23:23 82 178/72 H 10/19/21 23:22 82 178/72 H 10/19/21 23:00 78 10/19/21 22:50 36.6 C 80 16 166/69 H Pulse Ox 10/20/21 07:27 97 10/20/21 06:39 98 10/20/21 05:19 10/20/21 05:18 95 10/20/21 03:34 96 10/19/21 23:23 10/19/21 23:22 10/19/21 23:00 10/19/21 22:50 98 PG Care Time/CCT Total # of Minutes Spent Total Time Spent with Patient: Total time spent is greater than 50% in coordination of care (as documented) at patient's floor/unit and/or counseling patient: Coding Level of Care Code None Diagnoses H/O colectomy Z90.49
[2021-10-20] MEDS ORDERED: ENALAPRILAT 1.25 MG in DEXTROSE 5% 25 ML IV ONE (08:39)
--- NOTE | 2021-10-20 10:53 | Cardiology Progress Note ---
Date of Service October 20, 2021 Assessment & Plan (1) Sepsis: (2) Elevated troponin: (3) Coronary artery disease involving coronary bypass graft: Plan: Patient is a 80-year-old diabetic male with longstanding history of diffuse vascular disease and ischemic heart disease status post remote coronary bypass grafting 1994 with stable class II-III angina pectoris. He presents this admission with 2 days history of worsening abdominal pain abdominal distention possible acute abdomen with laboratory parameters consistent with sepsis. He is referred for further medical evaluation and management. Troponin is elevated and patient is tachycardic, hypertensive and marked discomfort. Issues are addressed as follows 1. Status post exploratory laparotomy which discovered cecal ischemia and necrosis status post resection. 2. Tachycardia/hypertension IV Lopressor was held while patient was sedated due to hypotension. Still not taking n.p.o. We will continue current IV metoprolol and I will increase Vasotec to 2.5 mg IV every 6 hours. Consideration may also be given to using IV hydralazine cautiously while the patient remains n.p.o. 3. Elevated troponin secondary to type II demand ischemia in association with hypertension, tachycardia, and metabolic demands of sepsis and beta-irving withdrawal. As above IV beta-blockers will be added topical nitrates as blood pressure allows. EKG without acute ischemic change. Echo performed with patient in sinus tachycardia demonstrates prior documented apical inferior and anteroseptal wall motion abnormalities. Mild accentuation of hypokinesis inferior base but preserved LV systolic function. Anticoagulation contraindicated Cardiology will follow Admission and Anticipated Discharge Date Admission Date: October 17, 2021 Subjective Patient seen and examined, chart reviewed. Currently out of bed in chair. Overall looking much better today. Abdomen still sore but greatly improved. Continues to deny cardiac complaints of chest pain, shortness of breath or palpitations. Review of Systems Review of Systems: All systems reviewed & are unremarkable except as noted in HPI & below Physical Exam Physical Exam: General: Awake, alert and oriented x 3. No acute distress. HEENT: Normocephalic, atraumatic. Pupils equal, round and reactive to light and accommodation. Extraocular muscles are intact. Anicteric sclera. Moist mucous membranes. Neck: No JVD. No bruit. Cardiovascular: Regular. Positive S-4. Normal S-1 and S-2. No S-3. No murmurs or rubs. Pulmonary: Clear to auscultation B/L. No rales, rhonchi or wheezing Abdomen: Deferred Extremities: No clubbing, cyanosis or edema. +2 pedal pulses bilaterally. Skin: Warm and dry. Results & Data ([facility]) Vital Signs (Past 12 Hours) Vital Signs Temp Pulse Pulse Pulse Resp BP BP 10/20/21 10:39 75 10/20/21 07:27 36.5 C 82 20 163/60 H 10/20/21 07:00 78 10/20/21 06:39 36.5 C 79 18 160/78 H 10/20/21 05:19 88 180/77 H 10/20/21 05:18 88 180/77 H 10/20/21 03:34 36.6 C 88 16 164/85 H 10/19/21 23:23 82 178/72 H 10/19/21 23:22 82 178/72 H 10/19/21 23:00 78 Pulse Ox 10/20/21 10:39 10/20/21 07:27 97 10/20/21 07:00 10/20/21 06:39 98 10/20/21 05:19 10/20/21 05:18 95 10/20/21 03:34 96 10/19/21 23:23 10/19/21 23:22 10/19/21 23:00 (1) Sepsis Sepsis acute organ dysfunction status: unspecified Sepsis type: sepsis due to unspecified organism Qualified Code(s): A41.9 - Sepsis, unspecified organism (2) Coronary artery disease involving coronary bypass graft [place] vs. transplanted heart: [place] heart Associated angina: with stable angina Qualified Code(s): I25.708 - Atherosclerosis of coronary artery bypass graft(s), unspecified, with other forms of angina pectoris
[2021-10-20] MEDS: PANTOprazole 40 MG in SYRINGE 0 ML IV SCH (11:10)
[2021-10-20] MEDS: ENALAPRILAT 2.5 MG in DEXTROSE 5% 25 ML IV SCH ×3 (12:02→23:42)
[2021-10-21] MEDS: SODIUM CHLORIDE 0.9% 1000ML 1,000 ML IV SCH ×2 (01:36→12:16)
[2021-10-21] MEDS: ENALAPRILAT 2.5 MG in DEXTROSE 5% 25 ML IV SCH ×2 (05:49→12:18)
[2021-10-21] MEDS: METOPROLOL TARTRATE 1 MG/ML VIAL IV SCH ×2 (05:52→12:23)
--- NOTE | 2021-10-21 06:28 | Hospitalist Progress Note ---
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 Ischemic Bowel with Peritonitis--s/p ex-lap and colectomy on 10/17 -taken for ExLap by surgery 10/17 for acute peritonitis, found 3cm necrotic cecum that was removed and small bowel reapproximated without ostomy bag placement - Pain control: - Discontinued scheduled Dilaudid at patient's request -- tolerating well - No longer requiring Tylenol 1g IV q8h - Dilaudid 0.5mg IV Q3HWA PRN breakthrough pain, will monitor -- has not required much - avoiding NSAIDs during surgical recovery. - continue Zosyn for empiric coverage (started 10/17) -- thankfully, afebrile, no leukocytosis - continue IVF (80cc/hr) -- will stop once demonstrating good PO intake - now s/p multiple BMs, passing flatus - Surgery actively following: NGT removed, transition to clear liquid diet - Remove Brandt Deconditioning / Weakness - Progressive weakness developed during hospital stay following operation -- suspect likely secondary to deconditioning - No evidence of developing infection, dehydration, SOB/chest symptoms; will monitor how functionality changes with PO intake - Monitor daily labs - PT, OT consulted: recommending inpatient rehab based on current appearance, will continue to monitor their notes - Fall precautions Sinus Tachycardia with Frequent Atrial Ectopy-- resolved - Sinus tachycardia with frequent atrial ectopy (originally thought to be AFib w/ RVR) appreciated while in ICU - Cardiology following, appreciate their recommendations: - Continue Lopressor 5mg IV q6h Elevated Troponin -without ECG changes, subsequently resolved -Secondary to demand ischemia secondary to sepsis, HTN, and beta-blockade withdrawal - Downtrended beginning 10/18, no symptoms since that time - TTE performed while here: apical inferior and anteroseptal WMAs, hypokinesis of inferior base but preserved LV function Electrolyte Abnormalities -resolved - monitor BMPs MDS with Pancytopenia and Transfusion-Dependence - Last transfused on 10/17, day of admission (Hgb 11.2 on admission) - stable at 10.5, will continue to monitor daily CBC - transfusion goal of >10.0 Indirect Hyperbilirubinemia - In setting of mild transaminitis appreciated on admission -- chronicity unknown - Stable since 10/18 -- suspect secondary to Gilbert's versus ?NAFL - CMP pending - Consider US as outpatient CAD--s/p CABG in 1994 with Class 2/3 angina, follows with [facility] [place] Card[facility] - TTE on 10/17 - moderate concentric left ventricular hypertrophy. apical inferior and anterior septum hypokinesis, basilar and mid inferior wall mild hypokinesis (chronic) - EF: 55-60% - LA mildly dilated, mild valvular aortic stenosis, trace aortic regurg, mild to mod mitral regurg, mod tricuspid regurg, RVP elevated at 40-50mmHG - restart daily ASA, statin when tolerating PO - cardiology recommendations as above Lactic acidosis 2/2 bowel ischemia- resolved Chronic Medical Conditions HTN: Enalapril increased per cardiology, continue Lopressor (both IV) -- resume lisinopril, atenolol once consistently tolerating PO T2DM: SSI while hospitalized, with reduced Lantus dosing due to NPO and sepsis GERD: IV pantoprazole while NPO HLD: hold statin while NPO BPH: hold Flomax while NPO FEN/GI: Clear liquids; NSS @ 80cc/hr -- can discontinue once patient is demonstrating adequate PO intake DVT Prophylaxis: SCDs, heparin 5,000u BID Code Status: DNR/DNI, but okay with intubation outside of cardiac arrest Disposition: PCU Consults: Cardiology, General Surgery, PT/OT (2) Lactic acidosis: (3) Hypokalemia: (4) Hypomagnesemia: (5) Hypocalcemia: (6) Hyperbilirubinemia: (7) Elevated troponin: (8) Status post CVA: (9) Prostate cancer: (10) CAD (coronary artery disease), [place] coronary artery: (11) PAD (peripheral artery disease): (12) Hypertension: (13) Hyperlipidemia: (14) Gastroesophageal reflux disease: (15) Benign prostate hyperplasia: (16) Pancytopenia: (17) Myelodysplastic syndrome: Admission and Anticipated Discharge Date Admission Date: October 17, 2021 Supervising Physician Co-Signing Physician Notes Resident Physician Supervision Note: I independently interviewed and examined the patient and verified the ceballos history and physical, reviewed labs and image studies and agree with resident Dr. Matamoros findings and care plan. Subjective Feeling well this morning. Denies any belly discomfort. Denies any nausea. Endorses passing gas. Did pass 3 bowel movements last night which were nonbloody. Denies any chest pain, palpitations, shortness of breath. Endorses a strong appetite and desire to eat. Review of Systems Review of Systems: as per HPI Physical Exam Physical Exam: General: Tired but otherwise well-appearing 80-year-old male in no acute distress. Nontoxic. Cardiac: Normal rate and regular rhythm; S1 and S2 present with no murmurs, rubs, or gallops. Pulmonary: Good respiratory effort with symmetric expansion of the chest. No use of accessory muscles. Lungs were clear to auscultation bilaterally with no crackles or wheezes. Abdominal: Normoactive bowel sounds. Palpation of the abdomen reveals improved, but still mild (But softer) distention without firmness, no rebound or guarding. Surgical bandage is clean and intact. Extremities: Upper and lower extremities are warm and well perfused. Results & Data Results & Data ([facility]) Vital Signs (Past 12 Hours) Vital Signs Temp Pulse Pulse Resp BP BP Pulse Ox 10/21/21 05:52 99 H 180/83 H 10/21/21 03:28 36.6 C 72 18 185/66 H 91 10/21/21 00:00 72 10/20/21 23:53 91 H 188/94 H 10/20/21 23:27 36.8 C 73 18 188/71 H 93 10/20/21 19:24 36.4 C L 85 18 172/62 H 93 Resident Activity Tracking Resident Involvement: Resident Care Provided Care Provided: Adult Hospital Medicine (1) CAD (coronary artery disease), [place] coronary artery Associated angina: unspecified whether angina present [place] vs. transplanted heart: [place] heart Qualified Code(s): I25.10 - Atherosclerotic heart disease of [place] coronary artery without angina pectoris
[2021-10-21 08:28] LABS: Mean Corpuscular Hgb Conc 32.5 g/dL (32-36); Nucleated RBC # (auto) 0.36 K/uL (0-0); Nucleated RBC % (auto) 4.3 %
[2021-10-21] MEDS: INSULIN ASPART PER UNIT SC SCH ×4 (08:32→20:46)
[2021-10-21] MEDS: INSULIN GLARGINE SOLOSTAR 100 UNITS/ML 3 ML PEN SC SCH ×2 (08:33→20:46)
[2021-10-21 08:37] LABS: Hematocrit (blood only) 32.3 % (42-52); Hemoglobin 10.5 g/dL (14.0-18.0); Mean Corpuscular Hemoglobin 27.9 pg (25-34); Mean Corpuscular Volume 85.7 fL (80-100); RDW Coefficient of Variation 20.1 % (11.5-14.5); RDW Standard Deviation 57.3 fL (36.4-46.3); Red Blood Count 3.77 M/uL (4.7-6.1); White Blood Count 8.45 K/uL (4.8-10.8)
[2021-10-21] MEDS: PIPERACILLIN/TAZOBACTAM 3.375 GM in DEXTROSE 5% 100 ML IV SCH ×3 (08:37→23:27)
[2021-10-21] MEDS: HEPARIN SOD 5,000 UNIT/0.5 ML VIAL SQ SCH ×2 (08:38→20:47)
[2021-10-21 08:56] LABS: ALC (manual) 0.97 K/uL (1.2-3.4); ANC (manual) 4.04 K/uL (1.4-6.5); Anisocytosis Present; Basophils # (manual) 0.08 K/uL (0-0.2); Basophils % (manual) 0.9 %; Blast # (manual) 1.12 K/uL (0-0); Blast Cells % (manual) 13.3 %; Lymphocytes # (manual) 0.97 K/uL (1.2-3.4); Lymphocytes % (manual) 11.5 %; Metamyelocytes # (manual) 0.45 K/uL (0-0); Metamyelocytes % (manual) 5.3 %; Monocytes # (manual) 1.05 K/uL (0.11-0.59); Monocytes % (manual) 12.4 %; Myelocytes # (manual) 0.74 K/uL (0-0); Myelocytes % (manual) 8.8 %; Neutrophils # (manual) 4.04 K/uL (1.4-6.5); Neutrophils % (manual) 47.8 %; Platelet Count 98 K/uL (130-400); Platelet Estimate Decreased (Normal); Poikilocytosis Present
--- NOTE | 2021-10-21 09:54 | Surgery Progress Note ---
Date of Service October 21, 2021 Assessment & Plan (1) H/O colectomy: Plan: Patient with history of necrosing colitis We will try to start him on clear liquids He is extremely weak Brandt catheter still in place-can DC when okay with medical team Incision is stable we will leave [place] drain Patient continues to require significant medical assistance P.o. pain meds added Admission and Anticipated Discharge Date Admission Date: October 17, 2021 Results & Data ([facility]) Vital Signs (Past 12 Hours) Vital Signs Temp Pulse Pulse Resp BP BP Pulse Ox 10/21/21 08:04 36.4 C L 79 19 165/71 H 95 10/21/21 05:52 99 H 180/83 H 10/21/21 03:28 36.6 C 72 18 185/66 H 91 10/21/21 00:00 72 10/20/21 23:53 91 H 188/94 H 10/20/21 23:27 36.8 C 73 18 188/71 H 93 PG Care Time/CCT Total # of Minutes Spent Total Time Spent with Patient: Total time spent is greater than 50% in coordination of care (as documented) at patient's floor/unit and/or counseling patient: Coding Level of Care Code None Diagnoses H/O colectomy Z90.49
--- NOTE | 2021-10-21 12:01 | Cardiology Progress Note ---
Date of Service October 21, 2021 Assessment & Plan (1) Sepsis: (2) Elevated troponin: (3) Coronary artery disease involving coronary bypass graft: Plan: Patient is a 80-year-old diabetic male with longstanding history of diffuse vascular disease and ischemic heart disease status post remote coronary bypass grafting 1994 with stable class II-III angina pectoris. He presents this admission with 2 days history of worsening abdominal pain abdominal distention possible acute abdomen with laboratory parameters consistent with sepsis. He is referred for further medical evaluation and management. Troponin is elevated and patient is tachycardic, hypertensive and marked discomfort. Issues are addressed as follows 1. Status post exploratory laparotomy which discovered cecal ischemia and necrosis status post resection. 2. Tachycardia/hypertension IV Lopressor was held while patient was sedated due to hypotension. Still not taking n.p.o. We will continue current IV metoprolol and I will increase Vasotec to 2.5 mg IV every 6 hours. Consideration may also be given to using IV hydralazine cautiously while the patient remains n.p.o.. Has been cleared by surgery to start clear liquids. If tolerates would resume outpatient antihypertensive regimen and discontinue IV metoprolol and Vasotec. Admission and Anticipated Discharge Date Admission Date: October 17, 2021 Subjective Patient seen and examined, chart reviewed. Feels very weak and fatigued today but notes abdominal discomfort continues to improve. Continues to deny cardiac complaints. Review of Systems Review of Systems: All systems reviewed & are unremarkable except as noted in HPI & below Physical Exam Physical Exam: General: Awake, alert and oriented x 3. No acute distress. HEENT: Normocephalic, atraumatic. Pupils equal, round and reactive to light and accommodation. Extraocular muscles are intact. Anicteric sclera. Moist mucous membranes. Neck: No JVD. No bruit. Cardiovascular: Regular. Positive S-4. Normal S-1 and S-2. No S-3. No murmurs or rubs. Pulmonary: Clear to auscultation B/L. No rales, rhonchi or wheezing Abdomen: Deferred Extremities: No clubbing, cyanosis or edema. +2 pedal pulses bilaterally. Skin: Warm and dry. Results & Data ([facility]) Vital Signs (Past 12 Hours) Vital Signs Temp Pulse Pulse Resp BP BP Pulse Ox 10/21/21 08:04 36.4 C L 79 19 165/71 H 95 10/21/21 08:00 72 10/21/21 05:52 99 H 180/83 H 10/21/21 03:28 36.6 C 72 18 185/66 H 91 10/21/21 00:00 72 (1) Sepsis Sepsis acute organ dysfunction status: unspecified Sepsis type: sepsis due to unspecified organism Qualified Code(s): A41.9 - Sepsis, unspecified organism (2) Coronary artery disease involving coronary bypass graft [place] vs. transplanted heart: [place] heart Associated angina: with stable angina Qualified Code(s): I25.708 - Atherosclerosis of coronary artery bypass graft(s), unspecified, with other forms of angina pectoris
[2021-10-21] MEDS: PANTOprazole 40 MG in SYRINGE 0 ML IV SCH (12:06)
[2021-10-21 12:16] LABS: Albumin Globulin Ratio 1.3 (0.9-2); Albumin Level 3.1 gm/dl (3.4-5.0); BUN Creatinine Ratio 25.3 (10-20); Bilirubin,Total 1.2 mg/dl (0.2-1.0); Calcium 7.3 mg/dl (8.5-10.1); Creatinine Clr Calc Pharmacy 67.1 ml/min; Est GFR (African American) 97.7 ml/min; Est GFR (Non-African American) 84.3 ml/min; Globulin 2.4 gm/dl (2.5-4.0); Potassium 3.5 mmol/L (3.5-5.1); Total Protein 5.5 gm/dl (6.0-8.3)
[2021-10-21] MEDS: lisinopril 2.5 MG TAB PO SCH (20:47)
[2021-10-21] MEDS: HYDROCODONE/ACETAMOPHEN 5/325MG TAB PO PRN (23:33)
[2021-10-22] MEDS: SODIUM CHLORIDE 0.9% 1000ML 1,000 ML IV SCH (03:43)
[2021-10-22] MEDS: HYDROmorphone INJ 0.5 MG/0.5 ML SYR IV PRN ×2 (06:15→12:09)
--- NOTE | 2021-10-22 06:53 | Hospitalist Progress Note ---
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 Ischemic Bowel with Peritonitis--s/p ex-lap and colectomy on 10/17 -taken for ExLap by surgery 10/17 for acute peritonitis, found 3cm necrotic cecum that was removed and small bowel reapproximated without ostomy bag placement - Pain control: - Dilaudid 0.5mg IV Q3HWA PRN breakthrough pain, will monitor -- has not required much - avoiding NSAIDs during surgical recovery. - Zosyn day #6: will discuss with Surgery the optimal length in the post-op setting for this or if can be discontinued - Discontinue mIVF -- tolerating PO well - Surgery actively following: Transition to full liquid diet, tolerating well Deconditioning / Weakness - Progressive weakness developed during hospital stay following operation -- suspect likely secondary to deconditioning - No evidence of developing infection, dehydration, SOB/chest symptoms; will monitor how functionality changes with PO intake - Monitor daily labs - PT, OT consulted: recommending inpatient rehab based on current appearance, will continue to monitor their notes - Fall precautions Sinus Tachycardia with Frequent Atrial Ectopy-- resolved - Sinus tachycardia with frequent atrial ectopy (originally thought to be AFib w/ RVR) appreciated while in ICU Elevated Troponin -without ECG changes, subsequently resolved -Secondary to demand ischemia secondary to sepsis, HTN, and beta-blockade withdrawal - Downtrended beginning 10/18, no symptoms since that time - TTE performed while here: apical inferior and anteroseptal WMAs, hypokinesis of inferior base but preserved LV function Electrolyte Abnormalities -resolved - monitor BMPs MDS with Pancytopenia and Transfusion-Dependence - Last transfused on 10/17, day of admission (Hgb 11.2 on admission) - stable between 10 - 11 earlier in admission -- now trending more towards 9 - On admission, transfusion goal cited as >10.0 - Will attempt to obtain notes from patient's medical/surgery registered nurse to clarify needs with regards to this / frequency of transfusion / ?Procrit Indirect Hyperbilirubinemia, Mild Transaminitis - In setting of mild transaminitis appreciated on admission -- chronicity unknown - Stable since 10/18 -- 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 apical inferior and anterior septum hypokinesis, basilar and mid inferior wall mild hypokinesis (chronic) - EF: 55-60% - LA mildly dilated, mild valvular aortic stenosis, trace aortic regurg, mild to mod mitral regurg, mod tricuspid regurg, RVP elevated at 40-50mmHG - restart daily ASA, statin when tolerating PO - Cardiology recommendations as above Lactic acidosis 2/2 bowel ischemia- resolved Chronic Medical Conditions HTN: Resumed p.o. home meds: lisinopril, atenolol T2DM: SSI while hospitalized, with reduced Lantus dosing due to NPO and sepsis GERD: IV --> PO pantoprazole HLD: resume statin BPH: resume Flomax FEN/GI: Full liquids DVT Prophylaxis: SCDs, heparin 5,000u BID Code Status: DNR/DNI, but okay with intubation outside of cardiac arrest Disposition: PCU Consults: Cardiology, General Surgery, PT/OT (2) Lactic acidosis: (3) Hypokalemia: (4) Hypomagnesemia: (5) Hypocalcemia: (6) Hyperbilirubinemia: (7) Elevated troponin: (8) Status post CVA: (9) Prostate cancer: (10) CAD (coronary artery disease), [place] coronary artery: (11) PAD (peripheral artery disease): (12) Hypertension: (13) Hyperlipidemia: (14) Gastroesophageal reflux disease: (15) Benign prostate hyperplasia: (16) Pancytopenia: (17) Myelodysplastic syndrome: Admission and Anticipated Discharge Date Admission Date: October 17, 2021 Supervising Physician Co-Signing Physician Notes Resident Physician Supervision Note: I independently interviewed and examined the patient and verified the ceballos history and physical, reviewed labs and image studies and agree with resident Dr. Matamoros findings and care plan. Subjective No acute events overnight. Reports feeling better this morning compared to yesterday, cites the improvement from being able to consume food. He endorses passing gas and continuing to move his bowels. No hematochezia or melena. Denies any chest pain, palpitations, shortness of breath. Otherwise spirits are good. He is looking forward to working with PT today. Review of Systems Review of Systems: as per HPI Physical Exam Physical Exam: General: Tired but otherwise well-appearing 80-year-old male in no acute distress. Nontoxic. Cardiac: Normal rate and regular rhythm; S1 and S2 present with no murmurs, rubs, or gallops. Pulmonary: Good respiratory effort with symmetric expansion of the chest. No use of accessory muscles. Lungs were clear to auscultation bilaterally with no crackles or wheezes. Abdominal: Normoactive bowel sounds. Palpation of the abdomen reveals improved, but still mild distention without firmness, no rebound or guarding. Unchanged from yesterday. Surgical bandage is clean and intact. Extremities: Upper and lower extremities are warm and well perfused. Results & Data Results & Data ([facility]) Vital Signs (Past 12 Hours) Vital Signs Temp Pulse Pulse Resp BP Pulse Ox 10/22/21 03:00 36.9 C 86 18 135/65 96 10/21/21 23:54 36.5 C 87 18 166/76 H 94 10/21/21 19:40 96 H 10/21/21 19:37 36.7 C 86 18 164/67 H 97 Resident Activity Tracking Resident Involvement: Resident Care Provided Care Provided: Adult Hospital Medicine (1) CAD (coronary artery disease), [place] coronary artery Associated angina: unspecified whether angina present [place] vs. transplanted heart: [place] heart Qualified Code(s): I25.10 - Atherosclerotic heart disease of [place] coronary artery without angina pectoris
[2021-10-22 07:11] LABS: Mean Corpuscular Hgb Conc 33.1 g/dL (32-36); Nucleated RBC % (auto) 2.7 %
[2021-10-22 07:25] LABS: Hematocrit (blood only) 27.2 % (42-52); Mean Corpuscular Volume 84.7 fL (80-100); RDW Coefficient of Variation 19.7 % (11.5-14.5); Red Blood Count 3.21 M/uL (4.7-6.1); White Blood Count 7.43 K/uL (4.8-10.8)
[2021-10-22 07:41] LABS: Albumin Globulin Ratio 1.2 (0.9-2); Albumin Level 2.8 gm/dl (3.4-5.0); BUN Creatinine Ratio 18.1 (10-20); Bilirubin,Total 1.1 mg/dl (0.2-1.0); Calcium 7.1 mg/dl (8.5-10.1); Creatinine Clr Calc Pharmacy 87.3 ml/min; Est GFR (African American) 103.6 ml/min; Est GFR (Non-African American) 89.3 ml/min; Globulin 2.3 gm/dl (2.5-4.0); Potassium 2.8 mmol/L (3.5-5.1); Total Protein 5.1 gm/dl (6.0-8.3)
[2021-10-22 07:43] LABS: ALC (manual) 1.91 K/uL (1.2-3.4); ANC (manual) 2.82 K/uL (1.4-6.5); Anisocytosis Present; Blast # (manual) 0.33 K/uL (0-0); Blast Cells % (manual) 4.4 %; Lymphocytes # (manual) 1.91 K/uL (1.2-3.4); Lymphocytes % (manual) 25.7 %; Metamyelocytes # (manual) 0.46 K/uL (0-0); Metamyelocytes % (manual) 6.2 %; Monocytes # (manual) 1.38 K/uL (0.11-0.59); Monocytes % (manual) 18.6 %; Myelocytes # (manual) 0.53 K/uL (0-0); Myelocytes % (manual) 7.1 %; Neutrophils # (manual) 2.82 K/uL (1.4-6.5); Platelet Count 55 K/uL (130-400); Platelet Estimate Decreased (Normal); Poikilocytosis Present; Toxic Vacuolation 1+
--- NOTE | 2021-10-22 07:44 | Surgery Progress Note ---
Date of Service October 22, 2021 Assessment & Plan (1) H/O colectomy: Plan: History of cecal necrosis Patient's vital signs are stable Tolerating clear liquids Having loose bowel movements Abdomen is mildly distended We will try full liquids Continue PT OT-we will likely require extended care/rehab Admission and Anticipated Discharge Date Admission Date: October 17, 2021 Results & Data ([facility]) Vital Signs (Past 12 Hours) Vital Signs Temp Pulse Resp BP Pulse Ox 10/22/21 03:00 36.9 C 86 18 135/65 96 10/21/21 23:54 36.5 C 87 18 166/76 H 94 PG Care Time/CCT Total # of Minutes Spent Total Time Spent with Patient: Total time spent is greater than 50% in coordination of care (as documented) at patient's floor/unit and/or counseling patient: Coding Level of Care Code None Diagnoses H/O colectomy Z90.49
[2021-10-22] MEDS: ATENOLOL 50 MG TABLET PO SCH (08:18)
[2021-10-22] MEDS: PIPERACILLIN/TAZOBACTAM 3.375 GM in DEXTROSE 5% 100 ML IV SCH (08:21)
[2021-10-22] MEDS: INSULIN GLARGINE SOLOSTAR 100 UNITS/ML 3 ML PEN SC SCH ×2 (08:22→20:13)
[2021-10-22] MEDS: INSULIN ASPART PER UNIT SC SCH ×4 (08:35→20:16)
[2021-10-22] MEDS: HEPARIN SOD 5,000 UNIT/0.5 ML VIAL SQ SCH ×2 (08:36→20:15)
[2021-10-22] MEDS: POTASSIUM CHLORIDE / WTR 10 MEQ/100 ML PLCT IV SCH ×4 (11:20→13:16)
[2021-10-22] MEDS: PANTOprazole 40 MG in SYRINGE 0 ML IV SCH (11:26)
[2021-10-22] MEDS: HYDROCODONE/ACETAMOPHEN 5/325MG TAB PO PRN (15:53)
[2021-10-22] MEDS ORDERED: ACETAMINOPHEN 500 MG TAB PO PRN (17:20)
[2021-10-22] MEDS: lisinopril 2.5 MG TAB PO SCH (20:21)
--- NOTE | 2021-10-23 07:12 | Hospitalist Progress Note ---
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 Ischemic Bowel with Peritonitis--s/p ex-lap and colectomy on 10/17; initially presented with concurrent lactic acidosis -taken for ExLap by surgery 10/17 for acute peritonitis, found 3cm necrotic cecum that was removed and small bowel reapproximated without ostomy bag placement - Pain control: - Tolerating PO: Tylenol > [place] 5/325 > Dilaudid for pain PRN - Avoiding NSAIDs during surgical recovery. - Zosyn finished 10/22 after 7-day course - Surgery actively following: Transition to low fiber diet -- transitioning well so far Deconditioning / Weakness - Progressive weakness developed during hospital stay following operation -- suspect likely secondary to deconditioning - No evidence of developing infection, dehydration, SOB/chest symptoms; will monitor how functionality changes with PO intake - Monitor daily labs - PT, OT consulted: recommending inpatient rehab based on current strength/mobility; would benefit from continued regular sessions - Fall precautions MDS with Pancytopenia and Transfusion-Dependence - Last transfused on 10/17, day of admission (Hgb 11.2 on admission) - stable between 10 - 11 earlier in admission -- now trending more towards 9 - On admission, transfusion goal cited as >10.0 - Per CCP notes: Procrit q_d, Indirect Hyperbilirubinemia, Mild Transaminitis -- stable - In setting of mild transaminitis appreciated on admission -- chronicity unknown - Stable since 10/18 -- 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/surgery- induced and maybe ?NAFL - Recommend US as outpatient - CMP q2d - will add on LFTs to today's labs Elevated Troponin -appreciated on admission; without ECG changes, subsequently resolved -Secondary to demand ischemia secondary to sepsis, HTN, and beta-blockade withdrawal - Downtrended beginning 10/18, no symptoms since that time - TTE performed here (10/2021): LVEF 55-60%, apical inferior and anteroseptal WMAs, hypokinesis of inferior base but preserved LV function CAD--s/p CABG in 1994 with Class 2/3 angina, follows with [facility] - TTE on 10/17 - moderate concentric left ventricular hypertrophy. apical inferior and anterior septum hypokinesis, basilar and mid inferior wall mild hypokinesis (chronic) - EF: 55-60% - LA mildly dilated, mild valvular aortic stenosis, trace aortic regurg, mild to mod mitral regurg, mod tricuspid regurg, RVP elevated at 40-50mmHG - Continue daily ASA, statin - Cardiology followed earlier during course and aided with recommendations Sinus Tachycardia with Frequent Atrial Ectopy-- resolved - Sinus tachycardia with frequent atrial ectopy (originally thought to be AFib w/ RVR) appreciated while in ICU, subsequently resolved with re-addition of beta-blockade Chronic Medical Conditions HTN:Continue lisinopril, atenolol; will restart home Imdur at 30mg today, can increase to 60mg tomorrow if tolerating T2DM: SSI while hospitalized, with reduced Lantus dosing due to NPO and sepsis GERD: Continue PO pantoprazole HLD: resume statin BPH: resume Flomax FEN/GI: Low fiber, add KCl 10mEq x 4 DVT Prophylaxis: SCDs, heparin 5,000u BID Code Status: DNR/DNI, but okay with intubation outside of cardiac arrest Disposition: PCU Consults: General Surgery, PT/OT; cardiology s/o (2) Lactic acidosis: (3) Hypokalemia: (4) Hypomagnesemia: (5) Hypocalcemia: (6) Hyperbilirubinemia: (7) Elevated troponin: (8) Status post CVA: (9) Prostate cancer: (10) CAD (coronary artery disease), [place] coronary artery: (11) PAD (peripheral artery disease): (12) Hypertension: (13) Hyperlipidemia: (14) Gastroesophageal reflux disease: (15) Benign prostate hyperplasia: (16) Pancytopenia: (17) Myelodysplastic syndrome: Admission and Anticipated Discharge Date Admission Date: October 17, 2021 Supervising Physician Co-Signing Physician Notes Resident Physician Supervision Note: I independently interviewed and examined the patient and verified the ceballos history and physical, reviewed labs and image studies and agree with resident Dr. Matamoros findings and care plan. Subjective No acute events overnight. Feeling well this morning. Denies any pain. He just ate his first solid meal, which she reports is going wellsome abdominal discomfort, but not bad. Endorses passing gas and moving bowels. No nausea or vomiting. No chest pain, palpitations, shortness of breath. Review of Systems Review of Systems: as per HPI Physical Exam Physical Exam: General: Tired but otherwise well-appearing 80-year-old male in no acute distress. Nontoxic. Cardiac: Normal rate and regular rhythm; S1 and S2 present with no murmurs, r ubs, or gallops. Pulmonary: Good respiratory effort with symmetric expansion of the chest. No use of accessory muscles. Lungs were clear to auscultation bilaterally with no c rackles or wheezes. Abdominal: Normoactive bowel sounds. Palpation of the abdomen reveals improved, but still mild distention without firmness, no rebound or guarding. Unchanged. Surgical bandage is clean and intact. Extremities: Upper and lower extremities are warm and well perfused. Results & Data Results & Data ([facility]) Vital Signs (Past 12 Hours) Vital Signs Temp Pulse Pulse Resp BP Pulse Ox 10/23/21 03:32 36.8 C 69 20 166/65 H 94 10/22/21 23:40 36.9 C 70 18 158/65 H 97 10/22/21 23:00 67 10/22/21 19:27 36.5 C 70 18 164/72 H 98 Resident Activity Tracking Resident Involvement: Resident Care Provided Care Provided: Adult Hospital Medicine (1) CAD (coronary artery disease), [place] coronary artery Associated angina: unspecified whether angina present [place] vs. transplanted heart: [place] heart Qualified Code(s): I25.10 - Atherosclerotic heart disease of [place] coronary artery without angina pectoris
[2021-10-23 07:13] LABS: Mean Corpuscular Hgb Conc 33.2 g/dL (32-36); Nucleated RBC # (auto) 0.13 K/uL (0-0); Nucleated RBC % (auto) 1.6 %
--- NOTE | 2021-10-23 07:21 | Surgery Progress Note ---
Date of Service October 23, 2021 Assessment & Plan (1) H/O colectomy: Plan: Patient with cecal necrosis Tolerating his full liquid diet with multiple bowel movements Abdomen is much softer Very weak but making some progress We will advance to low fiber diet We will likely need some form of rehab or extended care Possible discharge in 1 to 2 days depending on progress Admission and Anticipated Discharge Date Admission Date: October 17, 2021 Results & Data ([facility]) Vital Signs (Past 12 Hours) Vital Signs Temp Pulse Pulse Resp BP Pulse Ox 10/23/21 03:32 36.8 C 69 20 166/65 H 94 10/22/21 23:40 36.9 C 70 18 158/65 H 97 10/22/21 23:00 67 10/22/21 19:27 36.5 C 70 18 164/72 H 98 PG Care Time/CCT Total # of Minutes Spent Total Time Spent with Patient: Total time spent is greater than 50% in coordination of care (as documented) at patient's floor/unit and/or counseling patient: Coding Level of Care Code None Diagnoses H/O colectomy Z90.49
[2021-10-23 07:23] LABS: Hematocrit (blood only) 27.1 % (42-52); Mean Corpuscular Hemoglobin 28.3 pg (25-34); Mean Corpuscular Volume 85.2 fL (80-100); RDW Standard Deviation 56.8 fL (36.4-46.3); Red Blood Count 3.18 M/uL (4.7-6.1); White Blood Count 8.05 K/uL (4.8-10.8)
[2021-10-23 07:34] LABS: BUN Creatinine Ratio 15.4 (10-20); Calcium 7.5 mg/dl (8.5-10.1); Creatinine Clr Calc Pharmacy 80.6 ml/min; Est GFR (African American) 100.2 ml/min; Est GFR (Non-African American) 86.5 ml/min; Potassium 3.3 mmol/L (3.5-5.1)
[2021-10-23 07:52] LABS: Platelet Count 51 K/uL (130-400)
[2021-10-23 07:53] LABS: Anisocytosis Present; Hypochromasia Present; Ovalocytes 1+; Platelet Estimate Decreased (Normal)
[2021-10-23 08:09] LABS: ALC (manual) 1.84 K/uL (1.2-3.4); ANC (manual) 3.88 K/uL (1.4-6.5); Blast # (manual) 0.64 K/uL (0-0); Blast Cells % (manual) 7.9 %; Lymphocytes # (manual) 1.84 K/uL (1.2-3.4); Lymphocytes % (manual) 22.8 %; Metamyelocytes # (manual) 0.14 K/uL (0-0); Metamyelocytes % (manual) 1.8 %; Monocytes # (manual) 0.35 K/uL (0.11-0.59); Monocytes % (manual) 4.4 %; Myelocytes # (manual) 1.13 K/uL (0-0); Neutrophils # (manual) 3.88 K/uL (1.4-6.5); Neutrophils % (manual) 48.2 %; Promyelocytes # (manual) 0.07 K/uL (0-0); Promyelocytes % (manual) 0.9 %
[2021-10-23] MEDS ORDERED: ISOSORBIDE MONO EXTENDED REL 60 MG TABCR PO SCH (09:15)
[2021-10-23] MEDS: INSULIN ASPART PER UNIT SC SCH ×4 (09:15→21:11)
[2021-10-23] MEDS: ATENOLOL 50 MG TABLET PO SCH (09:24)
[2021-10-23] MEDS: ISOSORBIDE MONO EXTENDED REL 30 MG TABCR PO SCH (09:24)
[2021-10-23] MEDS: TAMSULOSIN HCL 0.4 MG CAP PO SCH (09:24)
[2021-10-23] MEDS: PANTOprazole 40 MG TAB PO SCH (09:24)
[2021-10-23] MEDS: HEPARIN SOD 5,000 UNIT/0.5 ML VIAL SQ SCH ×2 (09:25→20:29)
[2021-10-23] MEDS: ROSUVASTATIN CALCIUM 20 MG TAB PO SCH (09:25)
[2021-10-23] MEDS: INSULIN GLARGINE SOLOSTAR 100 UNITS/ML 3 ML PEN SC SCH ×2 (09:25→21:17)
[2021-10-23] MEDS: POTASSIUM CHLORIDE / WTR 10 MEQ/100 ML PLCT IV SCH ×4 (09:26→15:19)
[2021-10-23] MEDS: HYDROCODONE/ACETAMOPHEN 5/325MG TAB PO PRN ×2 (09:28→13:22)
[2021-10-23 11:10] LABS: Bilirubin Direct 0.2 mg/dl (0-0.2); Bilirubin,Total 0.9 mg/dl (0.2-1.0); Total Protein 5.3 gm/dl (6.0-8.3)
[2021-10-23] MEDS ORDERED: COUGH DROP (SUGAR FREE) LOZ 24 LOZ/1 BOX BUCCAL STA (19:28)
[2021-10-23] MEDS ORDERED: EPOETIN ALFA 20,000 UNITS/ML VIAL SQ ONE (20:00)
[2021-10-23] MEDS: lisinopril 2.5 MG TAB PO SCH (20:33)
[2021-10-24] MEDS: ROSUVASTATIN CALCIUM 20 MG TAB PO SCH (08:00)
[2021-10-24] MEDS: ATENOLOL 50 MG TABLET PO SCH (08:00)
[2021-10-24] MEDS: ISOSORBIDE MONO EXTENDED REL 30 MG TABCR PO SCH (08:00)
[2021-10-24] MEDS: PANTOprazole 40 MG TAB PO SCH (08:00)
[2021-10-24] MEDS: TAMSULOSIN HCL 0.4 MG CAP PO SCH (08:00)
[2021-10-24] MEDS: HEPARIN SOD 5,000 UNIT/0.5 ML VIAL SQ SCH ×2 (08:01→21:20)
[2021-10-24] MEDS: INSULIN ASPART PER UNIT SC SCH ×4 (08:09→21:20)
[2021-10-24] MEDS: INSULIN GLARGINE SOLOSTAR 100 UNITS/ML 3 ML PEN SC SCH ×2 (08:09→21:20)
--- NOTE | 2021-10-24 09:47 | Hospitalist Progress Note ---
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 Ischemic Bowel with Peritonitis--s/p ex-lap and colectomy on 10/17; -taken for ExLap by surgery 10/17 for acute peritonitis, found 3cm necrotic cecum that was removed and small bowel reapproximated without ostomy bag placement - Pain control: - Tolerating PO: Tylenol > [place] 5/325 > Dilaudid for pain PRN - Avoiding NSAIDs during surgical recovery. - Zosyn finished 10/22 after 7-day course - Surgery actively following: Transition to low fiber diet -- transitioning well so far Deconditioning / Weakness - Progressive weakness developed during hospital stay following operation -- s uspect likely secondary to deconditioning - No evidence of developing infection, dehydration, SOB/chest symptoms; will monitor how functionality changes with PO intake - Monitor daily labs - PT, OT consulted: recommending inpatient rehab based on current strength/mobility; would benefit from continued regular sessions - Fall precautions MDS with Pancytopenia and Transfusion-Dependence - Last transfused on 10/17, day of admission (Hgb 11.2 on admission) - stable between 10 - 11 earlier in admission -- now trending more towards 9 - On admission, transfusion goal cited as >10.0 - Per CCP notes: Procrit q_d, Indirect Hyperbilirubinemia, Mild Transaminitis -- stable - In setting of mild transaminitis appreciated on admission -- chronicity unknown - Stable since 10/18 -- 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/surgery- induced and maybe ?NAFL - Recommend US as outpatient - CMP q2d - will add on LFTs to today's labs Elevated Troponin -appreciated on admission; without ECG changes, subsequently resolved -Secondary to demand ischemia secondary to sepsis, HTN, and beta-blockade withdrawal - Downtrended beginning 10/18, no symptoms since that time - TTE performed here (10/2021): LVEF 55-60%, apical inferior and anteroseptal WMAs, hypokinesis of inferior base but preserved LV function CAD--s/p CABG in 1994 with Class 2/3 angina, follows with [facility] Cardiology - TTE on 10/17 - moderate concentric left ventricular hypertrophy. apical inferior and anterior septum hypokinesis, basilar and mid inferior wall mild hypokinesis (chronic) - EF: 55-60% - LA mildly dilated, mild valvular aortic stenosis, trace aortic regurg, mild to mod mitral regurg, mod tricuspid regurg, RVP elevated at 40-50mmHG - Continue daily ASA, statin - Cardiology followed earlier during course and aided with recommendations Sinus Tachycardia with Frequent Atrial Ectopy-- resolved - Sinus tachycardia with frequent atrial ectopy (originally thought to be AFib w/ RVR) appreciated while in ICU, subsequently resolved with re-addition of beta-blockade Chronic Medical Conditions HTN:Continue lisinopril, atenolol, imdur T2DM: SSI while hospitalized, with reduced Lantus dosing due to NPO and sepsis GERD: Continue PO pantoprazole HLD: resume statin BPH: resume Flomax FEN/GI: Low fiber, DVT Prophylaxis: SCDs, heparin 5,000u BID Code Status: DNR/DNI, but okay with intubation outside of cardiac arrest Disposition: med/tele Consults: General Surgery, PT/OT; cardiology s/o (2) Lactic acidosis: (3) Hypokalemia: (4) Hypomagnesemia: (5) Hypocalcemia: (6) Hyperbilirubinemia: (7) Elevated troponin: (8) Status post CVA: (9) Prostate cancer: (10) CAD (coronary artery disease), [place] coronary artery: (11) PAD (peripheral artery disease): (12) Hypertension: (13) Hyperlipidemia: (14) Gastroesophageal reflux disease: (15) Benign prostate hyperplasia: (16) Pancytopenia: (17) Myelodysplastic syndrome: Admission and Anticipated Discharge Date Admission Date: October 17, 2021 Supervising Physician Co-Signing Physician Notes Resident Physician Supervision Note: I independently interviewed and examined the patient and verified the ceballos history and physical, reviewed labs and image studies and agree with resident Dr. Rios findings and care plan. Subjective feeling well this AM. Eating, drinking, stooling appropriately. Per patient and nursing, no acute events overnight. Overnight telemetry monitoring showed a 14 beat run of Vtach that was asymptomatic while he was asleep. Anxious to go home rather than rehab. Review of Systems Review of Systems: All systems reviewed & are unremarkable except as noted in Subjective Physical Exam Physical Exam: Constitutional: in no apparent distress, sitting comfortably in bed. Eyes: EOMI, pupils equal and reactive bilaterally, no scleral icterus Cardiac: RRR, no murmurs, gallops or rubs. Normal S1, S2 Pulm: CTA BL, no wheezes, rhonchi, crackles or rubs, moving air well throughout both lungs Abd: soft, TTP on RLQ, nondistended, normal bowel sounds, no rebound or guarding Extremities: 2+ peripheral pulses, no edema Neuro: no focal deficits, moving all 4 limbs, A&Ox3 Results & Data Results & Data ([facility]) Vital Signs (Past 12 Hours) Vital Signs Temp Pulse Pulse Resp BP Pulse Ox 10/24/21 08:38 36.8 C 74 20 175/66 H 95 10/24/21 07:00 78 10/24/21 04:32 36.8 C 70 20 157/63 H 95 10/23/21 23:33 36.8 C 72 20 174/71 H 95 10/23/21 23:16 66 Resident Activity Tracking Resident Involvement: Resident Care Provided Care Provided: Adult Hospital Medicine (1) CAD (coronary artery disease), [place] coronary artery Associated angina: unspecified whether angina present [place] vs. transplanted heart: [place] heart Qualified Code(s): I25.10 - Atherosclerotic heart disease of [place] coronary artery without angina pectoris
--- NOTE | 2021-10-24 10:17 | Surgery Progress Note ---
Date of Service October 24, 2021 Assessment & Plan (1) Colonic ischemia: Plan: POD 7 right colectomy tolerating diet on po analgesics nigel drain removed ok for d/c soon ? rehab can shower Admission and Anticipated Discharge Date Admission Date: October 17, 2021 Subjective bowels moving, tolerating diet, walking in room/PT Physical Exam Gastrointestinal (Abdomen): Inspection/Auscultation: + abdominal surgical incision (no erythema) and + abdominal surgical drain present (nigel) Results & Data ([facility]) Vital Signs (Past 12 Hours) Vital Signs Temp Pulse Pulse Resp BP Pulse Ox 10/24/21 08:38 36.8 C 74 20 175/66 H 95 10/24/21 07:00 78 10/24/21 04:32 36.8 C 70 20 157/63 H 95 10/23/21 23:33 36.8 C 72 20 174/71 H 95 10/23/21 23:16 66 PG Care Time/CCT Total # of Minutes Spent Total Time Spent with Patient: Total time spent is greater than 50% in coordination of care (as documented) at patient's floor/unit and/or counseling patient: Coding Level of Care Code None Diagnoses Colonic ischemia K55.9
[2021-10-24 11:06] LABS: BUN Creatinine Ratio 14.5 (10-20); Calcium 8.3 mg/dl (8.5-10.1); Est GFR (African American) 101.3 ml/min; Est GFR (Non-African American) 87.4 ml/min; Potassium 3.3 mmol/L (3.5-5.1)
[2021-10-24] MEDS: HYDROCODONE/ACETAMOPHEN 5/325MG TAB PO PRN ×2 (13:18→19:07)
[2021-10-24] MEDS ORDERED: POTASSIUM CHLORIDE CRTAB 20 MEQ TABCR PO STA (14:06)
[2021-10-24] MEDS: POTASSIUM CHLORIDE / WTR 10 MEQ/100 ML PLCT IV SCH ×3 (14:50→17:40)
--- NOTE | 2021-10-24 19:08 | Communication Note ---
Date of Service: October 24, 2021 Cancer [facility] notes received and reviewed. Patient follows with [facility]AH[facility] Amaya, for: MDS resulting in pancytopenia, h/o iron deficiency. Last seen in their office on 10/15/2021. Patient receives Procrit 60,000U SQ weekly for Hgb < 11, last given while here on 10/23 (next dose: , 10/30). Based on review of his notes, transfusion goal seems to be Hgb < 9 / symptomatic.
[2021-10-24] MEDS: lisinopril 2.5 MG TAB PO SCH (21:21)
--- NOTE | 2021-10-25 06:31 | Hospitalist Progress Note ---
Date of Service October 25, 2021 Assessment & Plan Admission and Anticipated Discharge Date Admission Date: October 17, 2021 Results & Data Results & Data ([facility]) Vital Signs (Past 12 Hours) Vital Signs Temp Pulse Pulse Resp BP BP Pulse Ox 10/25/21 03:43 36.9 C 78 18 175/66 H 94 10/24/21 23:30 36.9 C 72 18 167/55 H 96 10/24/21 22:18 72
[2021-10-25 07:13] LABS: Nucleated RBC # (auto) 0.17 K/uL (0-0); Nucleated RBC % (auto) 1.6 %
[2021-10-25 07:32] LABS: INR 1.2 (0.9-1.1); Prothrombin Time 12.6 Seconds (9.0-12.0)
[2021-10-25 07:44] LABS: ALC (manual) 1.64 K/uL (1.2-3.4); ANC (manual) 5.57 K/uL (1.4-6.5); Albumin Globulin Ratio 1.4 (0.9-2); Albumin Level 3.6 gm/dl (3.4-5.0); Anisocytosis Present; BUN Creatinine Ratio 14.1 (10-20); Bilirubin,Total 0.9 mg/dl (0.2-1.0); Blast # (manual) 0.86 K/uL (0-0); Calcium 8.5 mg/dl (8.5-10.1); Creatinine Clr Calc Pharmacy 80.6 ml/min; Eosinophils % (manual) 0.9 %; Est GFR (African American) 100.2 ml/min; Est GFR (Non-African American) 86.5 ml/min; Globulin 2.5 gm/dl (2.5-4.0); Hematocrit (blood only) 31.1 % (42-52); Lymphocytes # (manual) 1.64 K/uL (1.2-3.4); Lymphocytes % (manual) 15.2 %; Mean Corpuscular Hemoglobin 27.8 pg (25-34); Mean Corpuscular Hgb Conc 32.2 g/dL (32-36); Mean Corpuscular Volume 86.4 fL (80-100); Metamyelocytes # (manual) 0.48 K/uL (0-0); Metamyelocytes % (manual) 4.5 %; Monocytes # (manual) 0.96 K/uL (0.11-0.59); Monocytes % (manual) 8.9 %; Myelocytes # (manual) 1.05 K/uL (0-0); Myelocytes % (manual) 9.8 %; Neutrophils # (manual) 5.57 K/uL (1.4-6.5); Neutrophils % (manual) 51.8 %; Platelet Count 74 K/uL (130-400); Platelet Estimate Decreased (Normal); Poikilocytosis Present; Potassium 4.2 mmol/L (3.5-5.1); Promyelocytes % (manual) 0.9 %; RDW Coefficient of Variation 20.4 % (11.5-14.5); RDW Standard Deviation 58.9 fL (36.4-46.3); Total Protein 6.1 gm/dl (6.0-8.3); Toxic Vacuolation 1+; White Blood Count 10.76 K/uL (4.8-10.8)
[2021-10-25] MEDS: PANTOprazole 40 MG TAB PO SCH (07:52)
[2021-10-25] MEDS: TAMSULOSIN HCL 0.4 MG CAP PO SCH (07:53)
[2021-10-25] MEDS: ROSUVASTATIN CALCIUM 20 MG TAB PO SCH (07:53)
[2021-10-25] MEDS: INSULIN ASPART PER UNIT SC SCH ×2 (08:19→12:39)
[2021-10-25] MEDS: INSULIN GLARGINE SOLOSTAR 100 UNITS/ML 3 ML PEN SC SCH (08:19)
[2021-10-25] MEDS: ATENOLOL 50 MG TABLET PO SCH (08:25)
[2021-10-25] MEDS: HEPARIN SOD 5,000 UNIT/0.5 ML VIAL SQ SCH (08:25)
[2021-10-25] MEDS ORDERED: ISOSORBIDE MONO EXTENDED REL 60 MG TABCR PO SCH (09:00)
--- NOTE | 2021-10-25 10:08 | Surgery Progress Note ---
Date of Service October 25, 2021 Assessment & Plan (1) Colonic ischemia: Plan: POD 8 right colectomy tolerating diet ok for d/c--he does not want to go to rehab can shower f/u 1 week for staple removal Admission and Anticipated Discharge Date Admission Date: October 17, 2021 Subjective feels "great" Physical Exam Gastrointestinal (Abdomen): Inspection/Auscultation: + abdominal surgical incision (no erythema); abdomen not distended Results & Data ([facility]) Vital Signs (Past 12 Hours) Vital Signs Temp Pulse Pulse Resp BP BP Pulse Ox 10/25/21 07:19 36.9 C 78 17 164/68 H 94 10/25/21 03:43 36.9 C 78 18 175/66 H 94 10/24/21 23:30 36.9 C 72 18 167/55 H 96 10/24/21 22:18 72 PG Care Time/CCT Total # of Minutes Spent Total Time Spent with Patient: Total time spent is greater than 50% in coordination of care (as documented) at patient's floor/unit and/or counseling patient: Coding Level of Care Code None Diagnoses Colonic ischemia K55.9
--- NOTE | 2021-10-25 13:43 | Discharge Summary ---
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 Patient has never had this type of pain before. Has not been able to eat or drink today due to the pain. He was in his usual state of health leading up to the pain. He notes that he has transfusion- dependent MDS and has felt progressive lightheadedness/dizziness/weakness for several days which is typical for him, leading up to a transfusion. He went to [facility] earlier today for the tranfusion and immediately felt much better. The abdominal pain occurred shortly after returning home, when he was outside feeding his chickens. Patient did not take home medications yesterday due to the pain. He denies recent respiratory symptoms, GI symptoms, urinary symptoms or rash leading up to the abdominal pain. In the ED the patient had T37.8, HR 146 - a-fib RVR, and hypertension to 170/93. Satting well on room air. Laboratory evaluation significant for Lactate 6.8, Procal 17.13, no leukocytosis. Also had Mg <0.5, K 2.7, and iCa 1.05. HCO3 17 (26 on 10/15), AG 18 (7 on 10/15). Cr WNL. BSG 274. Troponin also elevated at 0.96 but Hgb 11.2 (8.2 on 10/15 before transfusion). PT 16.7 and INR 1.6. CXR without acute cardiopulmonary process. CT A/P showed wall-thickening of cecum with mild surrounding fat stranding, as well as significant vessel calcifications, but no overt evidence of ischemic bowel. Part of appendix is larger than prior CT but overall looks normal. Patient was given Dilaudid 2mg total as well as 2L NSS bolus. Was also given Mag sulfate 1g and was started on Zosyn. Admission Exam Per Admitting Provider General: A&Ox3. Cooperative. Appears uncomfortable. Lying still in bed. HEENT: Atraumatic, normocephalic. Pulm: CTAB A&P. -wheezes, -rales, -rhonchi. Symmetrical chest rise. No increase work of breathing. No respiratory distress. Unable to take full inspiration 2/2 abdominal pain. Cardiac: RRR, -mrg. Radial pulses intact and symmetrical. No LE edema. Abdominal: protuberant abdomen but not firm. Significant tenderness to palpation of RLQ, no rebound tenderness or fluid wave, BS x 4 Skin: warm, dry, no rash Principal Diagnosis Colonic Ischemia s/p colectomy Discharge Exam Constitutional WD/WN, vitals as above ENMT external ear and nose normal, oropharynx normal Neck trachea midline, no thyromegaly Respiratory normal respiratory effort, lungs clear to auscultation Cardiovascular RRR, no murmur, no edema Gastrointestinal (Abdomen) Inspection/Auscultation: abdomen normal to inspection, normal bowel sounds, + abdominal surgical incision (Dressing clean and dry ) and + abdominal surgical drain present (BREEZY surgical drain with serosang); abdomen not distended Percussion/Palpation: + abdomen tender (mild TTP throughout, worse closer to incision site ) and abdomen soft; no guarding and abdomen not rigid Discharge Data Allergies Allergy/AdvReac Type Severity Reaction Status Date / Time clopidogrel Allergy Intermediate HIVES Verified 10/17/21 12:36 clarithromycin Allergy Mild UNKNOWN Verified 10/17/21 12:36 ezetimibe Allergy Mild UNKNOWN Verified 10/17/21 12:36 rosiglitazone Allergy Mild UNKNOWN Verified 10/17/21 12:36 rofecoxib Allergy Unknown UNKNOWN Verified 10/17/21 12:36 Iodinated Contrast Media AdvReac Mild SHAKY Verified 10/17/21 12:36 Consultations 10/17/21 03:01 ED Decision to Admit Stat 10/17/21 09:51 Consult General Surgery Routine 10/17/21 10:09 Consult Cardiology Routine 10/17/21 15:23 Consult Disulfurizer Tender Routine Procedures Performed Operation Date: 10/17/21 11:00 Actual Procedures p Exploratory Laparotomy, right colectomy, ileocolic anastomosis(Not Applicable) - Jad Renteria MD, FACS Ordered Studies 10/17/21 01:56 CT abd pelvis IV con only Urgent 10/17/21 03:40 US duplex mesenteric Stat Hospital Course (1) Sepsis: Juvencio Rodriguez is a 80-year-old male with a significant past medical history of 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 Ischemic Bowel with Peritonitis--s/p ex-lap and colectomy on 10/17; -taken for ExLap by surgery 10/17 for acute peritonitis, found to have 3cm necrotic cecum that was removed and small bowel reapproximated without ostomy bag placement - Zosyn finished 10/22 after 7-day course - BREEZY Drain removed by Surgery on 10/25/21 prior to discharge - Follow up with Surgery in 1 week for staple removal - Follow up with PCP in 1 week for TCM - Continue low fiber diet - pain control with nsaid prn. Deconditioning / Weakness - Progressive weakness developed during hospital stay following operation -- suspect likely secondary to deconditioning - No evidence of developing infection, dehydration, SOB/chest symptoms - PT/OT consulted - initially recommending inpatient rehab post hospital stay - Patient with fair improvement, OT recommended patient to return home with home health services day of discharge - Home health discussed with patient by case management and hospitalist team - patient declined, preferring to have his 2 daughters who live upstairs and his girlfriend help MDS with Pancytopenia and Transfusion-Dependence - Last transfused on 10/17, day of admission (Hgb 11.2 on admission) - stable on day of discharge at Hgb 10 - Procrit received on 10/23/21 in hospital - Will require next dose on 10/30/20 with [facility] Indirect Hyperbilirubinemia, Mild Transaminitis -- stable - In setting of mild transaminitis appreciated on admission -- chronicity unknown - Stable since 10/18 -- 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/surgery- induced and maybe ?NAFL - Recommend US as outpatient if Transaminitis does not resolve - Bilirubin 0.9 on day of discharge - AST 47, ALT 72 on day of discharge Elevated Troponin -appreciated on admission; without ECG changes, subsequently resolved -Secondary to demand ischemia secondary to sepsis, HTN, and beta-blockade withdrawal - Downtrended beginning 10/18, no symptoms since that time - TTE performed (10/2021): LVEF 55-60%, apical inferior and anteroseptal WMAs, hypokinesis of inferior base but preserved LV function CAD--s/p CABG in 1994 with Class 2/3 angina, follows with [facility] - TTE on 10/17 - moderate concentric left ventricular hypertrophy. apical inferior and anterior septum hypokinesis, basilar and mid inferior wall mild hypokinesis (chronic) - EF: 55-60% - LA mildly dilated, mild valvular aortic stenosis, trace aortic regurg, mild to mod mitral regurg, mod tricuspid regurg, RVP elevated at 40-50mmHG - Continued daily ASA, statin Sinus Tachycardia with Frequent Atrial Ectopy-- resolved - Sinus tachycardia with frequent atrial ectopy (originally thought to be AFib w/ RVR) appreciated while in ICU, subsequently resolved with re-addition of beta-blockade Chronic Medical Conditions HTN:Resumed lisinopril, atenolol, imdur post colectomy T2DM: SSI while hospitalized, with reduced Lantus dosing due to NPO and sepsis GERD: Continued PO pantoprazole HLD: resumed statin BPH: resumed Flomax (2) Lactic acidosis: (3) Hypokalemia: (4) Hypomagnesemia: (5) Hypocalcemia: (6) Hyperbilirubinemia: (7) Elevated troponin: (8) Status post CVA: (9) Prostate cancer: (10) CAD (coronary artery disease), [place] coronary artery: (11) PAD (peripheral artery disease): (12) Hypertension: (13) Hyperlipidemia: (14) Gastroesophageal reflux disease: (15) Benign prostate hyperplasia: (16) Pancytopenia: (17) Myelodysplastic syndrome: Total Time Total Time Spent Total Time Spent (In Minutes): See attending attestation Discharge Plan Discharge Items Patient Disposition: Home - Home Health Services Reason For Visit: ABDOMINAL PAIN, SEPSIS, A-FIB RVR Discharge Diagnosis: Colonic Ischemia requiring Colectomy Activity: Per Instructions section Lifting: No more than 10 pounds Bathing Comment: ok to shower, you do not need a banage once wound stops draining Driving/Machine Use: 1 week Non-emergency contact: Primary Care Provider and Surgeon Call non-emergency contact if: you have any medication questions, your pain is not controlled and your temperature is above 101 Follow-up/Referrals: Jad Renteria MD, FACS [Physician] - (Please call the office in 5-7 days for staple removal) Juan Everett MD [Primary Care Provider] - 11/04/21 2:00 pm () Diet: Low Fiber Addtl Attending Provider Instructions: Mr. Rodriguez, It was our pleasure caring for you at [facility] from 10/17/21 - 10/25/21 for your Colon Ischemia requiring surgical intervention. During your stay you were found to have ischemia (lack of blood flow) to a portion of your bowel. This portion of your bowel had caused a severe infection in your abdomen and was required to be removed via surgery. Since the surgery you have been able to continue with advancements in your diet and pain control. You were also treated with IV antibiotics for the infection in your abdomen both before and after removal of the portion of your bowel. At this time we feel you are stable for discharge home. You were recommended home health services, however, you had noted you would prefer not to have that and would have someone with you all hours of the day. Surgery has asked to follow up with you in 1 week in order to remove your stables and to ensure there are no issues with your healing. -Please resume and continue your home medications as prescribed previously -Please follow up with your Surgeon Dr. Renteria in 1 week in the clinic for removal of your sandee -Please follow up with your PCP in the next 1 week for your hospital discharge appointment Pending Studies at Discharge: No Stand-Alone Forms: My [facility], Smoking Cessation Medications and DC Order Prescriptions: Continued metformin 1,000 mg tablet 1,000 mg PO BID Qty: 180 RF: 3 insulin lispro [Humalog KwikPen Insulin] 100 unit/mL insulin pen See Rx Instructions SUBCUT UD Qty: 15 RF: 5 rosuvastatin 40 mg tablet 40 mg PO HS Qty: 90 RF: 1 hydrocodone-acetaminophen 5-325 mg tablet 1 tab PO .COMPLEX PRN (Reason: pain) Qty: 120 RF: 0 nitroglycerin 0.4 mg tablet, sublingual 0.4 mg Sublingual UD PRN (Reason: Angina) Qty: 30 RF: 5 isosorbide mononitrate 30 mg tablet extended release 24 hr 60 mg PO QAM Qty: 180 RF: 3 dulaglutide 1.5 mg/0.5 mL pen injector 1.5 mg subcut .weekly Qty: 2 RF: 5 lisinopril 5 mg tablet 2.5 mg PO HS RF: 0 aspirin 81 mg Tablet,Delayed Release (Dr/Ec) 81 mg PO QAM RF: 0 ferrous sulfate [Iron (ferrous sulfate)] 325 mg (65 mg iron) Tablet 325 mg PO QAM RF: 0 vitamin E 400 unit Capsule 400 unit PO QAM RF: 0 glucosamine-chondroitin [Osteo Bi-Flex] 250-200 mg Tablet 1 tab PO BID RF: 0 Centrum Silver 0.4-300-250 mg-mcg-mcg Tablet 1 tab PO QAM RF: 0 omega 8-oxm-hsl-fish oil [Fish Oil] 1,000 mg (120 mg-180 mg) Capsule 1 cap PO BID RF: 0 Lantus U-100 Insulin 100 unit/mL solution 70 unit SUBCUT DAILY@1100 RF: 0 tamsulosin 0.4 mg capsule 0.4 mg PO HS RF: 0 omeprazole 20 mg capsule,delayed release(DR/EC) 20 mg PO DAILY@1100 RF: 0 atenolol 50 mg tablet 50 mg PO QAM RF: 0 Discharge Orders: Discharge Order (Routine); Ordered 10/25/21 Ordered By: Juvencio Fagan/Other Patient Handouts: Low-Fiber Diet, Managing Type 2 Diabetes Admission Data Admit Date/Time: 10/17/21 04:27 Attending Provider: Anna Bermeo Admit Provider: Tre Lee Primary Care Provider: Juan Everett Other Providers: Jon Morales ; [facility] ; [facility] ; Stan Cox ; Jad Renteria ; Rey hKan ; Arnulfo Gonzalez ; Puma Schmitt ; Yuri Hager ; Akira Turner ; Claudy Echeverria ; Christian Raza ; Julien Phipps ; Anthony Ferraro Other Interventions: Discharge Summary Assessment (RN) Last Done: 10/25/21 14:57 Supervising Physician Co-Signing Physician Notes Resident Physician Supervision Note: I independently interviewed and examined the patient and verified the ceballos history and physical, reviewed labs and image studies and agree with resident Dr. Alvarez findings and care plan. Resident Activity Tracking Resident Involvement: Resident Care Provided Care Provided: Adult Hospital Medicine
[2021-10-25 15:16] VITALS: BP 143/60; PULSE 72; TEMP 98.2; O2SAT 95
== END 2021-10-25 17:13 | disposition home health service (06) | DRG 853 ==
LOC: ED 01:15 → SUATTDRO 04:27 → EDINP 04:27 → 2S 07:03 → 1E 15:03 → 2S 10-19 02:20 → 2W 10-24 12:53

== ENCOUNTER 2021-11-04 15:02 | Inpatient (IN) ==
[2021-11-04 15:54] LABS: Alanine Aminotransferase 25 U/L (7-52); Albumin Globulin Ratio 1.1 (0.9-2); Albumin Level 3.9 gm/dl (3.4-5.0); Alkaline Phosphatase 77 U/L (34-104); Anion Gap 10 (3-11); Aspartate Aminotransferase 22 U/L (13-39); BUN Creatinine Ratio 23.9 (10-20); Bilirubin,Total 1.1 mg/dl (0.2-1.0); Blood Urea Nitrogen 28 mg/dl (6-23); Calcium 10.1 mg/dl (8.5-10.1); Carbon Dioxide 23 mmol/L (21-32); Chloride 96 mmol/L (98-107); Est GFR (African American) 68.8 ml/min; Est GFR (Non-African American) 59.4 ml/min; Globulin 3.5 gm/dl (2.5-4.0); Glucose 207 mg/dl (70-99(Fasting)); Potassium 3.9 mmol/L (3.5-5.1); Sodium 129 mmol/L (136-145); Total Protein 7.4 gm/dl (6.0-8.3)
[2021-11-04 16:05] LABS: Hemoglobin 10.9 g/dL (14.0-18.0); Mean Corpuscular Hemoglobin 28.1 pg (25-34); Mean Corpuscular Hgb Conc 34.1 g/dL (32-36); Mean Corpuscular Volume 82.5 fL (80-100); RDW Coefficient of Variation 19.4 % (11.5-14.5); RDW Standard Deviation 54.6 fL (36.4-46.3); Red Blood Count 3.88 M/uL (4.7-6.1); White Blood Count 8.65 K/uL (4.8-10.8)
[2021-11-04 16:09] LABS: Nucleated RBC # (auto) 0.23 K/uL (0-0); Nucleated RBC % (auto) 2.7 %; Platelet Count 33 K/uL (130-400)
[2021-11-04 16:10] LABS: ALC (manual) 3.67 K/uL (1.2-3.4); ANC (manual) 2.72 K/uL (1.4-6.5); Blast # (manual) 1.25 K/uL (0-0); Blast Cells % (manual) 14.4 %; Lymphocytes # (manual) 3.67 K/uL (1.2-3.4); Lymphocytes % (manual) 42.4 %; Monocytes # (manual) 1.01 K/uL (0.11-0.59); Monocytes % (manual) 11.7 %; Neutrophils # (manual) 2.72 K/uL (1.4-6.5); Neutrophils % (manual) 31.5 %; Platelet Estimate SIGNIFIC DECREASED (Normal); Poikilocytosis Present; Toxic Vacuolation 1+
--- NOTE | 2021-11-04 16:17 | Electrocardiogram Report ---
Test Reason : Blood Pressure : / mmHG Vent. Rate : 079 BPM Atrial Rate : 079 BPM P-R Int : 164 ms QRS Dur : 086 ms QT Int : 396 ms P-R-T Axes : 044 019 209 degrees QTc Int : 454 ms Normal sinus rhythm Abnormal ECG When compared with ECG of 17-OCT-2021 09:22, Premature atrial complexes are no longer Present T wave inversion now evident in Anterolateral leads Confirmed by Juan Fisher ([id number] on 11/04/2021 4:16:57 PM Referred By: Confirmed By:Camacho Fisher
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
[2021-11-04] MEDS ORDERED: SODIUM CHLORIDE 0.9% 1000ML 500 ML IV ONE (17:38)
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
[2021-11-04] MEDS: LACTATED RINGER'S 1,000 ML IV SCH (20:22)
[2021-11-04] MEDS ORDERED: MAGNESIUM SULFATE / D5W 1 GM/100 ML BAG IV ONE (20:32)
[2021-11-04] MEDS ORDERED: ONDANSETRON INJ 2 MG/ML 2 ML VIAL IV PRN (22:21)
[2021-11-04] MEDS ORDERED: GLUCOSE 10 TABS/TUBE PO PRN (22:21)
[2021-11-04] MEDS ORDERED: ACETAMINOPHEN 325 MG TAB PO PRN (22:21)
[2021-11-04] MEDS ORDERED: GLUCOSE 40% GEL 15 GM TUBE PO PRN (22:21)
[2021-11-04] MEDS ORDERED: DEXTROSE 50% 50 ML SYRINGE IV PRN (22:21)
[2021-11-04] MEDS ORDERED: CARBOHYDRATES FOR HYPOGLYCEMIA PO PRN (22:21)
[2021-11-04] MEDS ORDERED: NITROGLYCERIN SL 0.4 MG/TAB TAB SL PRN (22:21)
[2021-11-04] MEDS ORDERED: HYDROCODONE/ACETAMOPHEN 5/325MG TAB PO PRN (22:21)
[2021-11-04] MEDS ORDERED: GLUCAGON FOR INJ 1 MG VIAL SQ PRN (22:21)
[2021-11-04] MEDS ORDERED: POLYETHYLENE (MIRALAX) 17 GM PACK PO PRN (22:21)
[2021-11-04] MEDS: INSULIN ASPART PER UNIT SC SCH (23:38)
[2021-11-04] MEDS: TAMSULOSIN HCL 0.4 MG CAP PO SCH (23:39)
[2021-11-05] MEDS: ROSUVASTATIN CALCIUM 20 MG TAB PO SCH ×2 (00:11→21:06)
[2021-11-05 02:43] LABS: Appearance Urine Turbid (Clear); Bacteria Urine Automated Negative (Negative); Bilirubin Urine Negative (Negative); Blood Urine Negative (Negative); Color Urine Dark Yellow; Epithelial Cell Urine Auto >30 /lpf (0-5); Glucose Urine UA Negative (Negative); Ketones Urine Negative (Negative); Leukocyte Esterase Urine Negative (Negative); Nitrite Urine Negative (Negative); Protein Urine 1+ (Negative); RBC Urine Automated >30 /hpf (0-4); Specific Gravity Urine 1.025 (1.000-1.030); Urobilinogen Urine Negative (Negative)
[2021-11-05 06:27] LABS: Albumin Globulin Ratio 1.1 (0.9-2); Albumin Level 3.2 gm/dl (3.4-5.0); Bilirubin,Total 0.9 mg/dl (0.2-1.0); Calcium 9.4 mg/dl (8.5-10.1); Creatinine Clr Calc Pharmacy 57.2 ml/min; Est GFR (African American) 80.3 ml/min; Est GFR (Non-African American) 69.3 ml/min; Globulin 2.8 gm/dl (2.5-4.0); Magnesium 1.9 mg/dl (1.7-2.4); Potassium 3.6 mmol/L (3.5-5.1)
[2021-11-05 07:03] LABS: ALC (manual) 1.91 K/uL (1.2-3.4); ANC (manual) 1.81 K/uL (1.4-6.5); Anisocytosis Present; Basophils # (manual) 0.05 K/uL (0-0.2); Basophils % (manual) 0.9 %; Blast # (manual) 1.01 K/uL (0-0); Eosinophils # (manual) 0.05 K/uL (0-0.5); Eosinophils % (manual) 0.9 %; Giant Platelets 1+; Hematocrit (blood only) 26.3 % (42-52); Hemoglobin 8.9 g/dL (14.0-18.0); Hypochromasia Present; Hypogranular Neutrophils 1+; Lymphocytes # (manual) 1.91 K/uL (1.2-3.4); Lymphocytes % (manual) 31.9 %; Mean Corpuscular Hemoglobin 28.1 pg (25-34); Mean Corpuscular Hgb Conc 33.8 g/dL (32-36); Metamyelocytes # (manual) 0.05 K/uL (0-0); Metamyelocytes % (manual) 0.9 %; Myelocytes # (manual) 0.21 K/uL (0-0); Myelocytes % (manual) 3.5 %; Neutrophils # (manual) 1.81 K/uL (1.4-6.5); Neutrophils % (manual) 30.1 %; Nucleated RBC # (auto) 0.11 K/uL (0-0); Nucleated RBC % (auto) 1.8 %; Platelet Count 23 K/uL (130-400); Platelet Estimate SIGNIFIC DECREASED (Normal); Poikilocytosis Present; RDW Coefficient of Variation 19.3 % (11.5-14.5); RDW Standard Deviation 54.6 fL (36.4-46.3); Red Blood Count 3.17 M/uL (4.7-6.1)
[2021-11-05 07:16] LABS: Blast Cells % (manual) 16.8 %
[2021-11-05 07:17] LABS: Estimated Average Glucose 220 mg/dl; Hemoglobin A1C 9.3 % (4.5-5.6)
[2021-11-05] MEDS: LACTATED RINGER'S 1,000 ML IV SCH (08:08)
[2021-11-05] MEDS: ATENOLOL 50 MG TABLET PO SCH (09:17)
[2021-11-05] MEDS: ISOSORBIDE MONO EXTENDED REL 60 MG TABCR PO SCH (09:17)
[2021-11-05] MEDS: FERROUS SULFATE 325 MG TAB PO SCH (09:17)
--- NOTE | 2021-11-05 09:36 | Consultation Report ---
HEMATOLOGY CONSULTATION DATE OF SERVICE: 11/05/2021. 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 HISTORY OF PRESENT ILLNESS: Mr. Juvencio Rodriguez is a very pleasant 80-year-old gentleman well known to [facility] with high risk myelodysplastic syndrome, admitted to [facility] last night because of generalized weakness and dehydration. The patient recently underwent a hemicolectomy performed by Dr. Renteria for ischemic colitis. He initially was doing relatively well, but over the past several days, began to feel poorly, manifested by labile blood sugars and generalized weakness. He denied any fevers, chills or sweats. No real abdominal pain. No nausea or vomiting, diarrhea or constipation reported. He also denied hematuria or dysuria. Apparently, visited his primary care physician prior to going to the ER, perhaps to see if he required blood transfusion. 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 When he initially presented, his hemoglobin was in the 8 g/dL range. He was empirically started on erythropoeitin on a weekly basis. His hemoglobin on average has been right around 10. Thus, he seemed to be maintaining reasonably well; however, as of late, has required increased transfusional support, which implies progressing MDS. PAST MEDICAL HISTORY: Significant for atrial flutter, carotid artery stenosis, chronic back pain, type 2 diabetes mellitus, gastroesophageal reflux disease, glaucoma, hyperlipidemia, hypertension, intracranial hemorrhage, macular degeneration, myocardial infarction, osteoarthritis, peritonitis, Peyronie's disease, prostate cancer, pulmonary edema, sacroiliitis, CVA, and laryngeal cancer. PAST SURGICAL HISTORY: Exploratory laparotomy with right hemicolectomy and ileocolic anastomosis by Dr. Renteria on 10/17/2021, history of elbow surgery, carpal tunnel release, colonoscopy, coronary artery bypass grafting, EGD, lumbar fusion, open reduction and internal fixation of left elbow, prostate biopsy, calcium deposit removal from salivary gland, tonsillectomy, teeth extraction, fem-pop bypass. MEDICATIONS PRIOR TO ADMISSION: Include aspirin 81 mg p.o. daily, ferrous sulfate 325 mg p.o. daily, glucosamine chondroitin sulfate 1 tablet p.o. b.i.d., multivitamin 1 tablet p.o. b.i.d., vitamin E 400 International Units p.o. daily, metformin 1000 mg p.o. b.i.d., insulin lispro per instruction, rosuvastatin 40 mg p.o. daily, hydrocodone 5/acetaminophen 325 one tablet p.o. q.4-6 hours p.r.n., atenolol 50 mg p.o. daily, insulin glargine 70 units subQ daily, omeprazole 20 mg p.o. daily, tamsulosin 0.4 mg p.o. at bedtime, Imdur 60 mg p.o. daily, lisinopril 2.5 mg p.o. at bedtime, nitroglycerin p.r.n. and dulaglutide 1.5 mg subcutaneous weekly. ALLERGIES: IV CONTRAST DYE, ROFECOXIB, ROSIGLITAZONE, EZETIMIBE, CLARITHROMYCIN, CLOPIDOGREL. FAMILY HISTORY: Mother at age 52 from metastatic breast cancer. Father , age 87 from metastatic prostate cancer. His brother with prostate cancer at age 75. SOCIAL HISTORY: The patient is a prior [id number] smoker. He lives with girlfriend. The patient is retired. Social alcohol use. Negative for illicit substances otherwise. REVIEW OF SYSTEMS: As per HPI. PHYSICAL EXAMINATION: GENERAL: Very pleasant 80-year-old male, awake, alert and appropriate, in no acute distress. VITAL SIGNS: Temperature 36.9, pulse 66, respiratory rate 20, blood pressure 142/42. SKIN: Warm, dry, noncyanotic without petechiae, rash or ecchymosis. HEENT: Head atraumatic, normocephalic. Eyes, PERRLA, EOMI. Nares patent without rhinorrhea or discharge. Throat clear. Tongue midline. Mucous membranes are moist. NECK: Supple without JVD or thyromegaly. LYMPH: No cervical, supraclavicular palpable nodes. HEART: Regular rate and rhythm. No clicks, rubs, murmurs or gallops. LUNGS: Clear to auscultation bilaterally. ABDOMEN: Soft, nontender, nondistended. Well-healed midline surgical wound. No evidence of surrounding erythema or drainage. EXTREMITIES: No clubbing, cyanosis or edema. MUSCULOSKELETAL: Strength and pulses are equal in all 4 quadrants. NEUROLOGIC: He is awake, alert and oriented x3. RADIOGRAPHIC DATA: KUB: Mildly dilated air-filled loops of small bowel with no evidence of gross obstruction. Chest x-ray, faint bibasilar airspace opacities, thought to represent atelectasis. These examinations were on 10/18/2021 and 10/19/2021 respectively. LABORATORY DATA: WBC count 6000, hemoglobin 8.9, platelet count 23,000, absolute neutrophil count 1810. Sodium 130, potassium 3.6, chloride 99, carbon dioxide 23, creatinine 1.03, BUN 33. Hemoglobin A1c 9.3%, albumin 3.2, LDH 472. IMPRESSION: 1. Generalized weakness/asthenia. 2. Abnormal EKG, inverted T waves. 3. Hyponatremia. 4. Thrombocytopenia. 5. Myelodysplastic syndrome (RARS). 6. Status post right hemicolectomy for ischemic colitis. PLAN: It was my pleasure to visit with Mr. Juvencio Rodriguez, gentleman well known at [facility] with high-grade myelodysplastic syndrome. He was diagnosed with MDS in April of 2021, at which time, his hemoglobin was in the 8 g/dL range. He had a decent response to Procrit. Bone marrow biopsy and aspiration confirmed a complex karyotype including 5q minus and deleted 7, which makes this gentleman high risk moving forward. That said, he did initially respond to erythropoietin, but clearly probably needs to be considered for perhaps 5- azacitidine. 5q minus in itself actually is a good prognostic marker very responsive to Revlimid single agent. However, in this case, he has other chromosomal anomalies and should receive 5-azacitidine most certainly at this juncture. Obviously have to allow him a chance to heal. Definitely troubled, his platelet count has been dropping over the past week, which would suggest he may have an impending infectious issue. Make sure we culture both the blood and urine moving forward. I would empirically cover him with broad-spectrum antibiotics. He is also due for weekly dose of Procrit, go ahead and order 40,000 units to be administered in the next 24 hours. Mr. Rodriguez will need to be seen in close followup upon recovery and discharge. Any further questions or concerns, please feel free to contact me at any time. Job ID: [id number] [facility]
[2021-11-05] MEDS: INSULIN ASPART PER UNIT SC SCH ×4 (09:54→21:05)
[2021-11-05] MEDS ORDERED: INSULIN GLARGINE SOLOSTAR 100 UNITS/ML 3 ML PEN SQ SCH (11:00)
[2021-11-05] MEDS: PANTOprazole 40 MG TAB PO SCH (11:32)
[2021-11-05] MEDS ORDERED: PIPERACILL/TAZOBAC CONSULT ACTIVE PRN (14:55)
[2021-11-05] MEDS ORDERED: PIPERACILLIN/TAZOBACTAM 3.375 GM in DEXTROSE 5% 100 ML IV STA (14:59)
--- NOTE | 2021-11-05 15:08 | Hospitalist Progress Note ---
Date of Service November 05, 2021 Assessment & Plan (1) Generalized weakness: Plan: Supportive care. Fluid rehydration. OT and PT assessments requested. Most likely is just deconditioning and mild dehydration secondary to recent hemicolectomy and critical illness requiring ICU stay (2) Abnormal EKG: Plan: Denies chest pain. Highly doubt acute coronary syndrome. Telemetry. Echo on 10/17/2021 shows moderate LVH, apical inferior and anterior septum hypokinetic, baseline mid inferior wall mildly hypokinetic, EF 55-60%, mild aortic stenosis, mild to moderate MR, moderate TR, elevated RVSP 40 of 50 mmHg With a history of CABG in 1994 (3) Hyponatremia: Plan: Sodium mildly low at 129. Check serum osmolarity. Serial lab studies (4) Thrombocytopenia: Plan: Platelets down to 33 which is the lowest they have been as far back as 1996. This is lower than what they were 10 days ago on the day of discharge.He does have MDS and had recent sepsis, however his sepsis had resolved by the time of discharge and his platelets continue to trend downward. Hematology oncology consultation noted. Serial lab studies. Holding aspirin. (5) Myelodysplastic syndrome: Plan: As above, typically with anemia and thrombocytopenia. Receives Procrit typically once weekly. Hematology oncology consultation appreciated. He is now on broad- spectrum antibiotics per their recommendation. (6) Anemia: Plan: Related to MDS. No overt GI bleeding. Serial labs . Continue ferrous sulfate. 5-azacitidine added by hem-onc (7) H/O colectomy: Plan: Status post right hemicolectomy on 10/17/2021 for ischemic colitis and peritonitis. Recovering well. [place] removed recently by Dr. Renteria (8) Status post CVA: Plan: Hold home aspirin due to thrombocytopenia as above. Continue statin (9) Peripheral artery disease: Plan: Holding home aspirin due to thrombocytopenia. Continue statin. History of femoropopliteal bypass (10) Diabetes mellitus type 2 in obese: Plan: Hemoglobin A1c 8.4% in 08/2021. Hold Metformin while hospitalized. ADA diet. Basal insulin. Sliding scale coverage as needed (11) CAD (coronary artery disease), [place] coronary artery: Plan: History of CABG 1994. Abnormal EKG noted but no chest pain. Continue current med management. Holding aspirin due to thrombocytopenia (12) Hypertension: Plan: Blood pressures low normal likely due to dehydration. Hold home lisinopril. Continue atenolol with hold parameters. Continue home isosorbide. IV fluids (13) Hyperlipidemia: Plan: Continue statin (14) Gastroesophageal reflux disease: Plan: Continue PPI Plan: DVT prophylaxis-SCDs only given thrombocytopenia Disposition- eventual discharge to home or SNF. PT/OT consults Admission and Anticipated Discharge Date Admission Date: November 04, 2021 Subjective Alert and oriented with generalized weakness. Hematology consultation noted. Broad-spectrum antibiotics added and he will be started on 5Azacitidine. Continue IV fluids. OT and PT assessments requested. Review of Systems Review of Systems: Constitutional-no fever or chills ENT-no blurred vision, no double vision, no epistaxis, no sore throat Respiratory-no cough, no wheezing, no shortness of breath Cardiac-no palpitations, no chest pain, no syncope GI-no nausea, vomiting, diarrhea, melena, hematochezia -no urinary retention, no urinary incontinence, no dysuria, no hematuria Musculoskeletal-no joint pain, no muscle tenderness. Generalized weakness Skin-no bruising, no rashes, no pruritus Neuro-generalized weakness . No paresthesia Psych-no depression, no anxiety Physical Exam Physical Exam: general-alert and oriented x3, no fevers, no chills HEENT-head atraumatic and normocephalic, TMs intact bilaterally, pupils equal and reactive to light, extraocular muscles intact Neck-no lymphadenopathy or thyromegaly, trachea midline Chest-clear to auscultation percussion. No rales wheezing or rhonchi Cardiac-regular rate and rhythm, normal S1 and S2, no murmurs Abdomen-normal bowel sounds, nontender, no hepatosplenomegaly Extremities-no cyanosis, clubbing, or edema Neuro-cranial nerves II through XII intact, motor and sensory function within normal limits, no focal deficits. Generalized weakness Psych-normal affect, normal mood Results & Data Results & Data ([facility]) Vital Signs (Past 12 Hours) Vital Signs Temp Pulse Pulse Resp BP BP Pulse Ox 11/05/21 14:00 70 18 119/60 97 11/05/21 13:00 69 18 121/48 L 97 11/05/21 09:09 71 23 135/53 L 96 11/05/21 08:04 36.8 C 11/05/21 08:01 68 17 115/36 L 11/05/21 08:00 68 18 11/05/21 06:00 66 21 129/53 L 11/05/21 04:00 66 20 142/42 H 95 Laboratory Results 11/05/21 05:40 11/05/21 05:40 PG Care Time/CCT Total # of Minutes Spent Total Time Spent with Patient: Total time spent is greater than 50% in coordination of care (as documented) at patient's floor/unit and/or counseling patient: Coding Level of Care Code 64369 Subseq Hosp Care Lvl 3 Diagnoses Generalized weakness R53.1 Abnormal EKG R94.31 Hyponatremia E87.1 Thrombocytopenia D69.6 Myelodysplastic syndrome D46.9 Anemia D64.9 H/O colectomy Z90.49 Status post CVA Z86.73 Peripheral artery disease I73.9 Diabetes mellitus type 2 in obese E11.69; E66.9 CAD (coronary artery disease), [place] coronary artery I25.10 Associated angina: unspecified whether angina present [place] vs. transplanted heart: [place] heart Hypertension I10 Hyperlipidemia E78.5 Gastroesophageal reflux disease K21.9 (1) CAD (coronary artery disease), [place] coronary artery Associated angina: unspecified whether angina present [place] vs. transplanted heart: [place] heart Qualified Code(s): I25.10 - Atherosclerotic heart disease of [place] coronary artery without angina pectoris
--- NOTE | 2021-11-05 17:13 | Electrocardiogram Report ---
Test Reason : Blood Pressure : / mmHG Vent. Rate : 070 BPM Atrial Rate : 070 BPM P-R Int : 178 ms QRS Dur : 086 ms QT Int : 416 ms P-R-T Axes : 040 004 -67 degrees QTc Int : 449 ms Poor data quality, interpretation may be adversely affected Normal sinus rhythm Possible Inferior infarct , age undetermined Poor R wave progression, consider anterior HI vs. lead placement vs. LVH Abnormal ECG When compared with ECG of 04-NOV-2021 15:23, T wave inversion no longer evident in Anterior leads Confirmed by Juan Fisher ([id number]) on 11/05/2021 5:13:04 PM Referred By: Camacho Everett Confirmed By:Camacho Fisher
[2021-11-05] MEDS: PIPERACILLIN/TAZOBACTAM 3.375 GM in DEXTROSE 5% 100 ML IV SCH (21:06)
[2021-11-05] MEDS: TAMSULOSIN HCL 0.4 MG CAP PO SCH (21:06)
[2021-11-06] MEDS: PIPERACILLIN/TAZOBACTAM 3.375 GM in DEXTROSE 5% 100 ML IV SCH (06:20)
[2021-11-06] MEDS: ISOSORBIDE MONO EXTENDED REL 60 MG TABCR PO SCH (08:45)
[2021-11-06] MEDS: FERROUS SULFATE 325 MG TAB PO SCH (08:45)
[2021-11-06] MEDS: ATENOLOL 50 MG TABLET PO SCH (08:45)
[2021-11-06] MEDS: INSULIN ASPART PER UNIT SC SCH ×4 (08:49→20:58)
[2021-11-06 08:58] LABS: BUN Creatinine Ratio 26.2 (10-20); Calcium 9.3 mg/dl (8.5-10.1); Creatinine Clr Calc Pharmacy 57.2 ml/min; Est GFR (African American) 80.3 ml/min; Est GFR (Non-African American) 69.3 ml/min; Potassium 3.5 mmol/L (3.5-5.1)
[2021-11-06 09:09] LABS: Hematocrit (blood only) 25.6 % (42-52); Hemoglobin 8.8 g/dL (14.0-18.0); Mean Corpuscular Hemoglobin 28.1 pg (25-34); Mean Corpuscular Hgb Conc 34.4 g/dL (32-36); Mean Corpuscular Volume 81.8 fL (80-100); Nucleated RBC # (auto) 0.09 K/uL (0-0); Nucleated RBC % (auto) 1.7 %; Platelet Count 26 K/uL (130-400); RDW Coefficient of Variation 19.4 % (11.5-14.5); RDW Standard Deviation 53.7 fL (36.4-46.3); Red Blood Count 3.13 M/uL (4.7-6.1); White Blood Count 5.46 K/uL (4.8-10.8)
[2021-11-06 09:13] LABS: ANC (manual) 2.35 K/uL (1.4-6.5); Blast # (manual) 0.71 K/uL (0-0); Metamyelocytes # (manual) 0.11 K/uL (0-0); Monocytes # (manual) 0.49 K/uL (0.11-0.59); Neutrophils # (manual) 2.35 K/uL (1.4-6.5)
[2021-11-06 09:18] LABS: Platelet Estimate SIGNIFIC DECREASED (Normal)
[2021-11-06] MEDS: PANTOprazole 40 MG TAB PO SCH (10:47)
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
--- NOTE | 2021-11-06 15:03 | Hospitalist Progress Note ---
Date of Service November 06, 2021 Assessment & Plan (1) Generalized weakness: Plan: Supportive care. Fluid rehydration stopped due to hypoosmolar hyponatremia. Continue OT and PT . Most likely is just deconditioning and mild dehydration secondary to recent hemicolectomy and critical illness requiring ICU stay (2) Abnormal EKG: Plan: Denies chest pain. Highly doubt acute coronary syndrome. Telemetry. Echo on 10/17/2021 shows moderate LVH, apical inferior and anterior septum hypokinetic, baseline mid inferior wall mildly hypokinetic, EF 55-60%, mild aortic stenosis, mild to moderate MR, moderate TR, elevated RVSP 40 of 50 mmHg. History of CABG in 1994. Consult [facility] cardiology (3) Hyponatremia: Plan: Hypoosmolar hyponatremia documented. IV fluids discontinued. Will fluid restrict if necessary. Serial lab studies. (4) Thrombocytopenia: Plan: Serial studies. Appreciate hematology/oncology consultation and recommendations. He does have MDS and had recent sepsis. Hematology oncology consultation noted. Serial lab studies. Holding aspirin. (5) Myelodysplastic syndrome: Plan: As above, typically with anemia and thrombocytopenia. Receives Procrit typically once weekly. Hematology oncology consultation appreciated. He is now on broad- spectrum antibiotics per their recommendation. (6) Anemia: Plan: Related to MDS. No overt GI bleeding. Serial labs . Continue ferrous sulfate. 5-azacitidine added by hem-onc (7) H/O colectomy: Plan: Status post right hemicolectomy on 10/17/2021 for ischemic colitis and peritonitis. Recovering well. [place] removed recently by Dr. Renteria (8) Status post CVA: Plan: Hold home aspirin due to thrombocytopenia as above. Continue statin (9) Peripheral artery disease: Plan: Holding home aspirin due to thrombocytopenia. Continue statin. History of femoropopliteal bypass (10) Diabetes mellitus type 2 in obese: Plan: Hemoglobin A1c 8.4% in 08/2021. Hold Metformin while hospitalized. ADA diet. Basal insulin down titrated today, November 06, due to documented hypoglycemia. Sliding scale coverage as needed (11) CAD (coronary artery disease), [place] coronary artery: Plan: History of CABG 1994. Abnormal EKG noted but no chest pain. Continue current med management. Holding aspirin due to thrombocytopenia (12) Hypertension: Plan: Blood pressures low normal likely due to dehydration. Holding home lisinopril. Continue atenolol with hold parameters. Continue home isosorbide. IV fluids stopped due to hypoosmolar hyponatremia. (13) Hyperlipidemia: Plan: Continue statin (14) Gastroesophageal reflux disease: Plan: Continue PPI Plan: DVT prophylaxis-SCDs only given thrombocytopenia Disposition-to be determined. Eventual discharge to home or SNF. Admission and Anticipated Discharge Date Admission Date: November 04, 2021 Subjective Alert and oriented. Lantus down titrated due to hypoglycemia. Hypoosmolar hyponatremia documented. IV fluids discontinued. [facility] cardiology consulted at patient request. He is now on cefepime empirically per heme-onc recommendations. Review of Systems Review of Systems: Constitutional-no fever or chills ENT-no blurred vision, no double vision, no epistaxis, no sore throat Respiratory-no cough, no wheezing, no shortness of breath Cardiac-no palpitations, no chest pain, no syncope GI-no nausea, vomiting, diarrhea, melena, hematochezia -no urinary retention, no urinary incontinence, no dysuria, no hematuria Musculoskeletal-no joint pain, no muscle tenderness. Generalized weakness Skin-no bruising, no rashes, no pruritus Neuro-no isolated weakness, no paresthesia, no weakness Psych-no depression, no anxiety Physical Exam Physical Exam: General-alert and oriented x3, no fevers, no chills HEENT-head atraumatic and normocephalic, TMs intact bilaterally, pupils equal a nd reactive to light, extraocular muscles intact Neck-no lymphadenopathy or thyromegaly, trachea midline Chest-faint bibasilar inspiratory rales. No wheezing Cardiac-regular rate and rhythm, normal S1 and S2, no murmurs Abdomen-normal bowel sounds, nontender, no hepatosplenomegaly Extremities-no cyanosis, clubbing, or edema Neuro-cranial nerves II through XII intact, motor and sensory function within normal limits, strength symmetrical , no focal deficits Psych-normal affect, normal mood Results & Data Results & Data ([facility]) Vital Signs (Past 12 Hours) Vital Signs Temp Pulse Pulse Resp BP BP Pulse Ox 11/06/21 11:35 36.7 C 73 18 105/52 L 94 11/06/21 08:00 65 11/06/21 07:52 36.7 C 68 18 130/56 L 95 11/06/21 04:00 36.5 C 68 20 133/54 L 95 Laboratory Results 11/06/21 08:04 11/06/21 08:04 PG Care Time/CCT Total # of Minutes Spent Total Time Spent with Patient: Total time spent is greater than 50% in coordination of care (as documented) at patient's floor/unit and/or counseling patient: Coding Level of Care Code 55939 Subseq Hosp Care Lvl 3 Diagnoses Generalized weakness R53.1 Abnormal EKG R94.31 Hyponatremia E87.1 Thrombocytopenia D69.6 Myelodysplastic syndrome D46.9 Anemia D64.9 H/O colectomy Z90.49 Status post CVA Z86.73 Peripheral artery disease I73.9 Diabetes mellitus type 2 in obese E11.69; E66.9 CAD (coronary artery disease), [place] coronary artery I25.10 Associated angina: unspecified whether angina present [place] vs. transplanted heart: [place] heart Hypertension I10 Hyperlipidemia E78.5 Gastroesophageal reflux disease K21.9 (1) CAD (coronary artery disease), [place] coronary artery Associated angina: unspecified whether angina present [place] vs. transplanted heart: [place] heart Qualified Code(s): I25.10 - Atherosclerotic heart disease of [place] coronary artery without angina pectoris
[2021-11-06] MEDS: CEFEPIME 2,000 MG in SYRINGE 0 ML IV SCH (15:18)
--- NOTE | 2021-11-06 17:00 | Electrocardiogram Report ---
Test Reason : Blood Pressure : / mmHG Vent. Rate : 078 BPM Atrial Rate : 078 BPM P-R Int : 176 ms QRS Dur : 086 ms QT Int : 408 ms P-R-T Axes : 045 040 -42 degrees QTc Int : 465 ms Normal sinus rhythm T wave abnormality, consider inferolateral ischemia Abnormal ECG When compared with ECG of 05-NOV-2021 14:45, Borderline criteria for Inferior infarct are no longer Present Confirmed by Juan Fisher ([id number] on 11/06/2021 4:59:49 PM Referred By: Camacho Everett Confirmed By:Camacho Fisher
[2021-11-06] MEDS: INSULIN GLARGINE SOLOSTAR 100 UNITS/ML 3 ML PEN SQ SCH (20:58)
[2021-11-06] MEDS: TAMSULOSIN HCL 0.4 MG CAP PO SCH (20:59)
[2021-11-06] MEDS: ROSUVASTATIN CALCIUM 20 MG TAB PO SCH (20:59)
[2021-11-07] MEDS: CEFEPIME 2,000 MG in SYRINGE 0 ML IV SCH ×3 (02:47→23:36)
[2021-11-07] MEDS: INSULIN ASPART PER UNIT SC SCH ×4 (07:55→20:30)
[2021-11-07] MEDS: FERROUS SULFATE 325 MG TAB PO SCH (07:58)
[2021-11-07] MEDS: ISOSORBIDE MONO EXTENDED REL 60 MG TABCR PO SCH (07:58)
[2021-11-07] MEDS: INSULIN GLARGINE SOLOSTAR 100 UNITS/ML 3 ML PEN SQ SCH (07:58)
[2021-11-07] MEDS: ATENOLOL 50 MG TABLET PO SCH (08:02)
[2021-11-07 08:04] LABS: BUN Creatinine Ratio 24.5 (10-20); Calcium 8.8 mg/dl (8.5-10.1); Creatinine Clr Calc Pharmacy 60.1 ml/min; Est GFR (African American) 85.2 ml/min; Est GFR (Non-African American) 73.6 ml/min; Potassium 3.3 mmol/L (3.5-5.1)
[2021-11-07 08:08] LABS: Hematocrit (blood only) 21.3 % (42-52); Hemoglobin 7.2 g/dL (14.0-18.0); Mean Corpuscular Hemoglobin 27.9 pg (25-34); Mean Corpuscular Hgb Conc 33.8 g/dL (32-36); Mean Corpuscular Volume 82.6 fL (80-100); Nucleated RBC # (auto) 0.05 K/uL (0-0); Nucleated RBC % (auto) 0.9 %; Platelet Count 23 K/uL (130-400); RDW Coefficient of Variation 19.5 % (11.5-14.5); RDW Standard Deviation 54.3 fL (36.4-46.3); Red Blood Count 2.58 M/uL (4.7-6.1)
[2021-11-07] MEDS ORDERED: POTASSIUM CHLORIDE CRTAB 20 MEQ TABCR PO STA (08:14)
[2021-11-07 08:57] LABS: Anisocytosis Present; Ovalocytes 1+; Platelet Estimate SIGNIFIC DECREASED (Normal); Toxic Vacuolation 1+
--- NOTE | 2021-11-07 08:57 | Progress Notes ---
HEMATOLOGY PROGRESS NOTE DATE OF SERVICE: 11/07/2021. DIAGNOSES: 1. Generalized weakness/asthenia. 2. Abnormal EKG, inverted T waves. 3. Hyponatremia. 4. Thrombocytopenia. 5. Myelodysplastic syndrome (RARS). 6. Status post right colectomy for ischemic colitis. SUBJECTIVE: Mr. Rodriguez was seen and examined at bedside. Definitely looking much better clinically, answering questions appropriately. The patient admits he is tolerating a diet at present. He is mov ing his bowels reasonably well. From a hematologic standpoint, platelet count appears to have hit na dir, presently 26,000. Hopefully, they will continue to spontaneously rise. The patient has been pl aced on empiric cefepime. Cultures thus far have proven negative. Perhaps discontinue antibiotics o brittani the weekend and move the patient towards discharge as medically appropriate. No complaints of leann n or discomfort. OBJECTIVE: GENERAL: A very pleasant, 80-year-old, awake, alert, appropriate, in no acute distress. VITAL SIGNS: Temperature 36.8, pulse 70, respiratory rate 20, blood pressure 118/52. SKIN: Without rash or lesion. HEENT: Oral mucosa without buccal lesions or ulcerations. NECK: Supple. HEART: Regular rate and rhythm. LUNGS: Clear to auscultation bilaterally. ABDOMEN: Soft, nontender, nondistended. Healing surgical abdominal wound noted. EXTREMITIES: No clubbing, cyanosis, or edema. NEUROLOGIC: Grossly intact. LABORATORY DATA: Today's peripheral counts are pending. IMPRESSION: 1. Generalized weakness. 2. Abnormal EKG, inverted T waves. 3. Hyponatremia. 4. Thrombocytopenia. 5. Myelodysplastic syndrome (RARS). 6. Status post right hemicolectomy for ischemic colitis. PLAN: From a hematologic standpoint, it would appear his hemoglobin and platelet count have stabiliz ed. His platelets were well over 100,000 at baseline and trust they will return to this gentleman's normal over time. That said, he possesses high risk myelodysplasia and needs to be considered for 5- azacitidine moving forward. I will be departing the practice in the next week and discussed Mr. Armen tenorio's case with Indira TEAGUE, who had been following with Mr. Rodriguez specifically discussing therapeutic plan moving forward. Clearly, he has been transfusion dependent in the past 7 months sin ce diagnosis. He does benefit from erythropoietin, but ultimately with high-risk disease, he will re quire more intense therapy. Mr. Rodriguez was made aware of this and will follow up within 1-2 weeks post discharge. We will officia lly sign off and anticipate disposition over the weekend. Thank you for allowing me to participate in his care. Job ID: [id number]
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
[2021-11-07 09:08] LABS: ALC (manual) 2.53 K/uL (1.2-3.4); ANC (manual) 0.92 K/uL (1.4-6.5); Eosinophils # (manual) 0.05 K/uL (0-0.5); Eosinophils % (manual) 0.9 %; Lymphocytes # (manual) 2.53 K/uL (1.2-3.4); Lymphocytes % (manual) 48.7 %; Metamyelocytes # (manual) 0.09 K/uL (0-0); Metamyelocytes % (manual) 1.8 %; Monocytes # (manual) 0.18 K/uL (0.11-0.59); Monocytes % (manual) 3.5 %; Myelocytes # (manual) 0.23 K/uL (0-0); Myelocytes % (manual) 4.4 %; Neutrophils # (manual) 0.92 K/uL (1.4-6.5); Neutrophils % (manual) 17.7 %
--- NOTE | 2021-11-07 11:18 | Cardiology Progress Note ---
Date of Service November 07, 2021 Assessment & Plan (1) Failure to thrive in adult: (2) Generalized weakness: (3) H/O exploratory laparotomy: (4) Thrombocytopenia: (5) Coronary artery disease, occlusive: Plan: -Pa patient describes stable cardiac signs and symptoms, no symptoms suggestive of angina. -Platelet count remains in the 20s despite the addition of empiric antibiotics. -I have reached out to the general surgery service this morning given patient's history of peritonitis earlier this month, and generalized illness. Although vague mild abdominal tenderness noted on my physical exam yesterday 11/06/2021, this is much improved today, and the patient's generalized energy level also slightly improved. Per review of previous records he has a longstanding history of multivascular bed atherosclerosis with early onset, aggressive coronary heart disease, CABG 27 years ago in 1994 and has chronic symptoms of class II-III exertional angina baseline. Has history of myelodysplastic syndrome, with acute worsening thrombocytopenia, platelet count 23k. Repolarization changes likely reflect some degree of demand based ischemia, recent cardiac enzymes, reassuring. Continue medication therapy with atenolol, isosorbide mononitrate, rosuvastatin. Aspirin on hold due to thrombocytopenia. Continue supportive care. General surgery input noted and appreciated. Case discussed with Dr Coll. Freida rucker. Admission and Anticipated Discharge Date Admission Date: November 04, 2021 Subjective Patient seen in cardiology follow-up. He is much more awake this morning, more alert, and more conversant. No acute distress. Heart rate regular in the 70s. Physical Exam 2 Constitutional: + ill appearing (Chronically ill in appearance without acute distress) Respiratory: normal respiratory effort, lungs clear to auscultation Cardiovascular: RRR, no murmur, no edema Gastrointestinal (Abdomen): Well-healed midline abdominal incision, soft, nontender on palpation Neurologic: PERRL, EOMI, accommodation nl, no face palsy, no dysarthria Results & Data ([facility]) Vital Signs (Past 12 Hours) Vital Signs Temp Pulse Pulse Resp BP Pulse Ox 11/07/21 11:08 36.4 C L 72 20 102/60 98 11/07/21 09:54 69 11/07/21 07:55 36.8 C 70 20 118/52 L 95 11/07/21 04:00 36.5 C 71 18 116/56 L 96 11/06/21 23:20 69 Laboratory Results CBC 11/07/21 Range/Units 07:31 WBC 5.20 (4.8-10.8) K/uL RBC 2.58 L (4.7-6.1) M/uL Hgb 7.2 L (14.0-18.0) g/dL Hct 21.3 L (42-52) % Plt Count 23 L* (130-400) K/uL Comprehensive Metabolic Panel 11/07/21 Range/Units 07:31 Sodium 131 L (136-145) mmol/L Potassium 3.3 L (3.5-5.1) mmol/L Chloride 101 (98-107) mmol/L Carbon Dioxide 23 (21-32) mmol/L BUN 24 H (6-23) mg/dl Creatinine 0.98 (0.6-1.4) mg/dl Glucose 74 (70-99(Fasting)) mg/dl Calcium 8.8 (8.5-10.1) mg/dl Intake and Output 11/06/21 11/07/21 11/07/21 22:59 06:59 14:59 Intake Total 410 / 795 270 / 795 Balance 410 / 795 270 / 795 Intake: Oral 410 / 680 270 / 680
[2021-11-07] MEDS: PANTOprazole 40 MG TAB PO SCH (12:54)
--- NOTE | 2021-11-07 13:26 | Hospitalist Progress Note ---
Date of Service November 07, 2021 Assessment & Plan (1) Generalized weakness: Plan: Supportive care. Fluid rehydration stopped due to hypoosmolar hyponatremia. Continue OT and PT . Most likely is just deconditioning and mild dehydration secondary to recent hemicolectomy and critical illness requiring ICU stay (2) Abnormal EKG: Plan: Denies chest pain. Highly doubt acute coronary syndrome. Telemetry. Echo on 10/17/2021 shows moderate LVH, apical inferior and anterior septum hypokinetic, baseline mid inferior wall mildly hypokinetic, EF 55-60%, mild aortic stenosis, mild to moderate MR, moderate TR, elevated RVSP 40 of 50 mmHg. History of CABG in 1994. Consult [facility] cardiology (3) Hyponatremia: Plan: Hypoosmolar hyponatremia documented. IV fluids have been discontinued. Will initiate fluid restriction if necessary. Serial lab studies. (4) Thrombocytopenia: Plan: Serial studies. Appreciate hematology/oncology consultation and recomme ndations. He does have MDS and had recent sepsis. Hematology oncology consultation noted. Serial lab studies. Holding aspirin. (5) Myelodysplastic syndrome: Plan: Chronic anemia and thrombocytopenia. Receives Procrit typically once weekly. Hematology oncology consultation appreciated. He is now on broad-spectrum antibiotics per their recommendation. (6) Anemia: Plan: Related to MDS. No overt GI bleeding. Serial labs . Continue ferrous sulfate. 5-azacitidine added by hem-onc (7) H/O colectomy: Plan: Status post right hemicolectomy on 10/17/2021 for ischemic colitis and peritoni tis. Recovering well. Appreciate general surgery consultation. Emerita have been removed recently by Dr. Renteria (8) Status post CVA: Plan: Holding home aspirin due to thrombocytopenia. Continue statin (9) Peripheral artery disease: Plan: Holding home aspirin due to thrombocytopenia. Continue statin. History of femoropopliteal bypass (10) Diabetes mellitus type 2 in obese: Plan: Hemoglobin A1c 8.4% in 08/2021. Hold Metformin while hospitalized. ADA diet. Basal insulin down titrated November 06 and November 07, due to documented hypoglycemia. Sliding scale coverage as needed (11) CAD (coronary artery disease), [place] coronary artery: Plan: History of CABG 1994. Abnormal EKG noted but no chest pain. Continue current med management. Holding aspirin due to thrombocytopenia (12) Hypertension: Plan: Blood pressures low normal likely due to dehydration. Holding home lisinopril. Continue atenolol with hold parameters. Continue home isosorbide. IV fluids stopped due to hypoosmolar hyponatremia. (13) Hyperlipidemia: Plan: Continue statin (14) Gastroesophageal reflux disease: Plan: Continue PPI Plan: DVT prophylaxis-SCDs only due to thrombocytopenia Disposition-to be determined. Eventual discharge to home or SNF. Admission and Anticipated Discharge Date Admission Date: November 04, 2021 Subjective Alert and stable. The evening Lantus dosage is down titrated further to prevent hypoglycemia during the evening hours. Sodium stable at 131. Potassium mildly low at 3.3 and replacement ordered. Cefepime day 3. Platelet count 23,000 today and relatively unchanged over the past 3 days. No overt bleeding. As pirin is on hold. Review of Systems Review of Systems: Constitutional-no fever or chills ENT-no blurred vision, no double vision, no epistaxis, no sore throat Respiratory-no cough, no wheezing, no shortness of breath Cardiac-no palpitations, no chest pain, no syncope GI-no nausea, vomiting, diarrhea, melena, hematochezia -no urinary retention, no urinary incontinence, no dysuria, no hematuria Musculoskeletal-no joint pain, no muscle tenderness. Generalized weakness Skin-no bruising, no rashes, no pruritus Neuro-generalized weakness. No paresthesia Psych-no depression, no anxiety Physical Exam Physical Exam: General-alert and oriented x3, no fevers, no chills HEENT-head atraumatic and normocephalic, TMs intact bilaterally, pupils equal and reactive to light, extraocular muscles intact Neck-no lymphadenopathy or thyromegaly, trachea midline Chest-clear to auscultation percussion. No rales wheezing or rhonchi Cardiac-regular rate and rhythm, normal S1 and S2, no murmurs Abdomen-normal bowel sounds, nontender, no hepatosplenomegaly Extremities-no cyanosis, clubbing, or edema Neuro-cranial nerves II through XII intact, motor and sensory function within normal limits, strength symmetrical with generalized weakness, no focal deficits Psych-normal affect, normal mood Results & Data Results & Data ([facility]) Vital Signs (Past 12 Hours) Vital Signs Temp Pulse Pulse Resp BP Pulse Ox Pulse Ox 11/07/21 11:18 97 11/07/21 11:08 36.4 C L 72 20 102/60 98 11/07/21 09:54 69 11/07/21 07:55 36.8 C 70 20 118/52 L 95 11/07/21 04:00 36.5 C 71 18 116/56 L 96 Laboratory Results 11/07/21 07:31 11/07/21 07:31 PG Care Time/CCT Total # of Minutes Spent Total Time Spent with Patient: Total time spent is greater than 50% in coordination of care (as documented) at patient's floor/unit and/or counseling patient: Coding Level of Care Code 04997 Subseq Hosp Care Lvl 3 Diagnoses Generalized weakness R53.1 Abnormal EKG R94.31 Hyponatremia E87.1 Thrombocytopenia D69.6 Myelodysplastic syndrome D46.9 Anemia D64.9 H/O colectomy Z90.49 Status post CVA Z86.73 Peripheral artery disease I73.9 Diabetes mellitus type 2 in obese E11.69; E66.9 CAD (coronary artery disease), [place] coronary artery I25.10 Associated angina: unspecified whether angina present [place] vs. transplanted heart: [place] heart Hypertension I10 Hyperlipidemia E78.5 Gastroesophageal reflux disease K21.9 (1) CAD (coronary artery disease), [place] coronary artery Associated angina: unspecified whether angina present [place] vs. transplanted heart: [place] heart Qualified Code(s): I25.10 - Atherosclerotic heart disease of [place] coronary artery without angina pectoris
[2021-11-07] MEDS: TAMSULOSIN HCL 0.4 MG CAP PO SCH (20:34)
[2021-11-07] MEDS: ROSUVASTATIN CALCIUM 20 MG TAB PO SCH (20:34)
[2021-11-07] MEDS ORDERED: INSULIN GLARGINE SOLOSTAR 100 UNITS/ML 3 ML PEN SC SCH (21:00)
[2021-11-08] MEDS: CEFEPIME 2,000 MG in SYRINGE 0 ML IV SCH ×3 (05:47→20:57)
[2021-11-08 07:49] LABS: BUN Creatinine Ratio 20.6 (10-20); Calcium 8.8 mg/dl (8.5-10.1); Creatinine Clr Calc Pharmacy 64.8 ml/min; Est GFR (African American) 86.3 ml/min; Est GFR (Non-African American) 74.5 ml/min; Potassium 3.8 mmol/L (3.5-5.1)
[2021-11-08] MEDS: ISOSORBIDE MONO EXTENDED REL 60 MG TABCR PO SCH (08:12)
[2021-11-08] MEDS: ATENOLOL 50 MG TABLET PO SCH (08:12)
[2021-11-08] MEDS: FERROUS SULFATE 325 MG TAB PO SCH (08:12)
[2021-11-08] MEDS: INSULIN ASPART PER UNIT SC SCH ×4 (08:13→20:52)
[2021-11-08 08:16] LABS: Hematocrit (blood only) 21.4 % (42-52); Hemoglobin 7.2 g/dL (14.0-18.0); Mean Corpuscular Hgb Conc 33.6 g/dL (32-36); Mean Corpuscular Volume 83.3 fL (80-100); Nucleated RBC # (auto) 0.04 K/uL (0-0); Nucleated RBC % (auto) 0.7 %; Platelet Count 27 K/uL (130-400); RDW Coefficient of Variation 19.6 % (11.5-14.5); RDW Standard Deviation 54.8 fL (36.4-46.3); Red Blood Count 2.57 M/uL (4.7-6.1); White Blood Count 5.12 K/uL (4.8-10.8)
[2021-11-08 08:39] LABS: Anisocytosis Present; Hypogranular Neutrophils 1+; Platelet Estimate Decreased (Normal); Tear Drop Cells 1+
[2021-11-08 08:41] LABS: ALC (manual) 2.44 K/uL (1.2-3.4); ANC (manual) 0.91 K/uL (1.4-6.5); Basophils # (manual) 0.05 K/uL (0-0.2); Basophils % (manual) 0.9 %; Blast # (manual) 1.18 K/uL (0-0); Lymphocytes # (manual) 2.44 K/uL (1.2-3.4); Lymphocytes % (manual) 47.7 %; Monocytes # (manual) 0.36 K/uL (0.11-0.59); Monocytes % (manual) 7.1 %; Myelocytes # (manual) 0.14 K/uL (0-0); Myelocytes % (manual) 2.7 %; Neutrophils # (manual) 0.91 K/uL (1.4-6.5); Neutrophils % (manual) 17.7 %; Promyelocytes # (manual) 0.05 K/uL (0-0); Promyelocytes % (manual) 0.9 %
[2021-11-08] MEDS ORDERED: INSULIN GLARGINE SOLOSTAR 100 UNITS/ML 3 ML PEN SQ SCH (09:00)
--- NOTE | 2021-11-08 09:49 | Cardiology Progress Note ---
Date of Service November 08, 2021 Assessment & Plan (1) Failure to thrive in adult: (2) Generalized weakness: (3) H/O exploratory laparotomy: (4) Thrombocytopenia: (5) Coronary artery disease, occlusive: Plan: 80-year-old patient reports stable cardiac signs and symptoms. No symptoms suggestive of angina or acute decompensated heart failure. Telemetry demonstrates sinus rhythm without dysrhythmia. Carries a history of myelodysplastic syndrome with acute worsening thrombocytopenia, platelet count 27K and acute worsening of chronic anemia. Continue medication therapy with atenolol, isosorbide mononitrate, rosuvastatin. Aspirin on hold due to thrombocytopenia. Continue supportive care. Cardiology will sign off. Please call with any concerns or questions. Admission and Anticipated Discharge Date Admission Date: November 04, 2021 Subjective Patient seen examined the bedside. Denies chest pain or unusual shortness of breath. Telemetry reveals sinus rhythm. No significant bradycardia, pauses, or sustained dysrhythmias overnight. Patient denies abdominal pain however generalized weakness and fatigue unchanged. Hemoglobin and platelet count unchanged overnight. Review of Systems Review of Systems: All systems reviewed & are unremarkable except as noted in Subjective Physical Exam Constitutional: + ill appearing; no acute distress Respiratory: normal respiratory effort; no respiratory distress and no labored breathing Auscultation: lungs clear to auscultation bilaterally; no crackles, no rales, no rhonchi and no wheezes Cardiovascular: Rate/Rhythm: regular rate and regular rhythm Heart Sounds: normal S1 and normal S2; no murmur Vessels: no JVD Extremities: no edema Gastrointestinal (Abdomen): Inspection/Auscultation: abdomen normal to inspection and normal bowel sounds; abdomen not distended Percussion/Palpation: abdomen soft; abdomen nontender, no guarding and abdomen not rigid Neurologic: CN's II-XI intact bilaterally and moves all extremities; no focal motor deficits Motor/Sensory: no tremor Results & Data ([facility]) Vital Signs (Past 12 Hours) Vital Signs Temp Pulse Pulse Resp BP BP Pulse Ox 11/08/21 07:30 36.7 C 69 20 135/52 L 94 11/08/21 07:17 71 11/08/21 03:30 36.8 C 74 20 116/74 95 11/08/21 00:32 66 11/08/21 00:00 11/07/21 22:15 36.4 C L 71 20 125/54 L 93 Pulse Ox 11/08/21 07:30 11/08/21 07:17 11/08/21 03:30 11/08/21 00:32 11/08/21 00:00 93 11/07/21 22:15
--- NOTE | 2021-11-08 11:31 | Hospitalist Progress Note ---
Date of Service November 08, 2021 Assessment & Plan (1) Generalized weakness: Plan: Supportive care. Fluid rehydration has been stopped due to hypoosmolar hyponatremia. Continue OT and PT . Most likely just deconditioning and mild dehydration secondary to recent hemicolectomy and critical illness requiring ICU stay (2) Abnormal EKG: Plan: Denies chest pain. Highly doubt acute coronary syndrome. Telemetry. Echo on 10/17/2021 shows moderate LVH, apical inferior and anterior septum hypokinetic, baseline mid inferior wall mildly hypokinetic, EF 55-60%, mild aortic stenosis, mild to moderate MR, moderate TR, elevated RVSP 40 of 50 mmHg. History of CABG in 1994. [facility] cardiology consult appreciated (3) Hyponatremia: Plan: Hypoosmolar hyponatremia documented. IV fluids have been discontinued. Will initiate fluid restriction if necessary. Serial lab studies. Sodium 132 today (4) Thrombocytopenia: Plan: Serial studies. Appreciate hematology/oncology consultation and recommendations. He does have MDS and had recent sepsis. Hematology oncology consultation noted. Serial lab studies. Holding aspirin. (5) Myelodysplastic syndrome: Plan: Chronic anemia and thrombocytopenia. Receives Procrit typically once weekly. Hematology oncology consultation appreciated. He is now on broad-spectrum antibiotics per their recommendation. Transfuse as needed. 5-azacitidine added per heme-onc (6) Anemia: Plan: Related to MDS. No overt GI bleeding. Serial labs . Continue ferrous sulfate. 5-azacitidine added by hem-onc (7) H/O colectomy: Plan: Status post right hemicolectomy on 10/17/2021 for ischemic colitis and peritonitis. Recovering well. Appreciate general surgery consultation. Emerita have been removed recently by Dr. Renteria (8) Status post CVA: Plan: Holding home aspirin due to thrombocytopenia. Continue statin (9) Peripheral artery disease: Plan: Holding home aspirin due to thrombocytopenia. Continue statin. History of femoropopliteal bypass (10) Diabetes mellitus type 2 in obese: Plan: Hemoglobin A1c 8.4% in 08/2021. Hold Metformin while hospitalized. ADA diet. Basal insulin down titrated November 06, November 07, and again today, November 08, due to documented hypoglycemia. Sliding scale coverage as needed (11) CAD (coronary artery disease), [place] coronary artery: Plan: History of CABG 1994. Abnormal EKG noted but no chest pain. Continue current med management. Holding aspirin due to thrombocytopenia (12) Hypertension: Plan: Blood pressures low normal likely due to dehydration. Holding home lisinopril. Continue atenolol with hold parameters. Continue home isosorbide. IV fluids stopped due to hypoosmolar hyponatremia. (13) Hyperlipidemia: Plan: Continue statin (14) Gastroesophageal reflux disease: Plan: Continue PPI Plan: DVT prophylaxis-SCDs only due to thrombocytopenia Disposition-to be determined. Eventual discharge to home or SNF. Admission and Anticipated Discharge Date Admission Date: November 04, 2021 Subjective Alert and oriented. No new problems. Lantus further down titrated today, November 08. Glucose is still running low at times. Mild hypokalemia has been corrected. Platelet count 27,000. Hemoglobin 7.2 and the same as yesterday. Sodium low at 132 but stable. Review of Systems Review of Systems: Constitutional-no fever or chills ENT-no blurred vision, no double vision, no epistaxis, no sore throat Respiratory-no cough, no wheezing, no shortness of breath Cardiac-no palpitations, no chest pain, no syncope GI-no nausea, vomiting, diarrhea, melena, hematochezia -no urinary retention, no urinary incontinence, no dysuria, no hematuria Musculoskeletal-no joint pain, no muscle tenderness Skin-no bruising, no rashes, no pruritus Neuro-no isolated weakness, no paresthesia, no weakness Psych-no depression, no anxiety Physical Exam Physical Exam: General-alert and oriented x3, no fevers, no chills HEENT-head atraumatic and normocephalic, TMs intact bilaterally, pupils equal and reactive to light, extraocular muscles intact Neck-no lymphadenopathy or thyromegaly, trachea midline Chest-clear to auscultation percussion. No rales wheezing or rhonchi Cardiac-regular rate and rhythm, normal S1 and S2, no murmurs Abdomen-normal bowel sounds, nontender, no hepatosplenomegaly Extremities-no cyanosis, clubbing, or edema Neuro-cranial nerves II through XII intact, motor and sensory function within normal limits, strength symmetrical , no focal deficits Psych-normal affect, normal mood Results & Data Results & Data ([facility]) Vital Signs (Past 12 Hours) Vital Signs Temp Pulse Pulse Resp BP Pulse Ox Pulse Ox 11/08/21 11:09 36.8 C 71 20 103/54 L 96 11/08/21 07:30 36.7 C 69 20 135/52 L 94 11/08/21 07:17 71 11/08/21 03:30 36.8 C 74 20 116/74 95 11/08/21 00:32 66 11/08/21 00:00 93 Laboratory Results 11/08/21 07:06 11/08/21 07:06 PG Care Time/CCT Total # of Minutes Spent Total Time Spent with Patient: Total time spent is greater than 50% in coordination of care (as documented) at patient's floor/unit and/or counseling patient: Coding Level of Care Code 27635 Subseq Hosp Care Lvl 3 Diagnoses Generalized weakness R53.1 Abnormal EKG R94.31 Hyponatremia E87.1 Thrombocytopenia D69.6 Myelodysplastic syndrome D46.9 Anemia D64.9 H/O colectomy Z90.49 Status post CVA Z86.73 Peripheral artery disease I73.9 Diabetes mellitus type 2 in obese E11.69; E66.9 CAD (coronary artery disease), [place] coronary artery I25.10 Associated angina: unspecified whether angina present [place] vs. transplanted heart: [place] heart Hypertension I10 Hyperlipidemia E78.5 Gastroesophageal reflux disease K21.9 (1) CAD (coronary artery disease), [place] coronary artery Associated angina: unspecified whether angina present [place] vs. transplanted heart: [place] heart Qualified Code(s): I25.10 - Atherosclerotic heart disease of [place] coronary artery without angina pectoris
[2021-11-08] MEDS: PANTOprazole 40 MG TAB PO SCH (12:39)
[2021-11-08] MEDS: INSULIN GLARGINE SOLOSTAR 100 UNITS/ML 3 ML PEN SC SCH (20:54)
[2021-11-08] MEDS: TAMSULOSIN HCL 0.4 MG CAP PO SCH (20:56)
[2021-11-08] MEDS: ROSUVASTATIN CALCIUM 20 MG TAB PO SCH (20:56)
[2021-11-09] MEDS: CEFEPIME 2,000 MG in SYRINGE 0 ML IV SCH ×2 (06:02→16:42)
[2021-11-09 07:32] LABS: BUN Creatinine Ratio 21.4 (10-20); Creatinine Clr Calc Pharmacy 74.8 ml/min; Est GFR (African American) 97.2 ml/min; Est GFR (Non-African American) 83.9 ml/min; Potassium 3.8 mmol/L (3.5-5.1)
[2021-11-09] MEDS: ATENOLOL 50 MG TABLET PO SCH (07:57)
[2021-11-09] MEDS: ISOSORBIDE MONO EXTENDED REL 60 MG TABCR PO SCH (07:57)
[2021-11-09] MEDS: FERROUS SULFATE 325 MG TAB PO SCH (07:57)
[2021-11-09] MEDS: INSULIN GLARGINE SOLOSTAR 100 UNITS/ML 3 ML PEN SQ SCH (07:58)
[2021-11-09 08:01] LABS: Hematocrit (blood only) 21.7 % (42-52); Hemoglobin 7.2 g/dL (14.0-18.0); Mean Corpuscular Hemoglobin 27.7 pg (25-34); Mean Corpuscular Hgb Conc 33.2 g/dL (32-36); Mean Corpuscular Volume 83.5 fL (80-100); Platelet Count 26 K/uL (130-400); RDW Coefficient of Variation 19.5 % (11.5-14.5); RDW Standard Deviation 55.1 fL (36.4-46.3); White Blood Count 5.31 K/uL (4.8-10.8)
[2021-11-09] MEDS: INSULIN ASPART PER UNIT SC SCH ×4 (08:01→20:35)
[2021-11-09 08:29] LABS: ALC (manual) 2.14 K/uL (1.2-3.4); ANC (manual) 1.16 K/uL (1.4-6.5); Anisocytosis Present; Blast # (manual) 1.12 K/uL (0-0); Blast Cells % (manual) 21.1 %; Lymphocytes # (manual) 2.14 K/uL (1.2-3.4); Lymphocytes % (manual) 40.3 %; Metamyelocytes % (manual) 1.8 %; Monocytes # (manual) 0.61 K/uL (0.11-0.59); Monocytes % (manual) 11.4 %; Myelocytes # (manual) 0.19 K/uL (0-0); Myelocytes % (manual) 3.5 %; Neutrophils # (manual) 1.16 K/uL (1.4-6.5); Neutrophils % (manual) 21.9 %; Platelet Estimate SIGNIFIC DECREASED (Normal); Poikilocytosis Present
[2021-11-09] MEDS: PANTOprazole 40 MG TAB PO SCH (10:59)
--- NOTE | 2021-11-09 11:24 | Hospitalist Progress Note ---
Date of Service November 09, 2021 Assessment & Plan (1) Generalized weakness: Plan: Supportive care. Fluid rehydration has been stopped due to hypoosmolar hyponatremia. Continue OT and PT . Most likely just deconditioning and mild dehydration secondary to recent hemicolectomy and critical illness requiring ICU stay. Much improved since admission (2) Abnormal EKG: Plan: Denies chest pain. Highly doubt acute coronary syndrome. Telemetry. Echo on 10/17/2021 shows moderate LVH, apical inferior and anterior septum hypokinetic, baseline mid inferior wall mildly hypokinetic, EF 55-60%, mild aortic stenosis, mild to moderate MR, moderate TR, elevated RVSP 40 of 50 mmHg. History of CABG in 1994. [facility] cardiology consult appreciated (3) Hyponatremia: Plan: Hypoosmolar hyponatremia documented. IV fluids have been discontinued. Will initiate fluid restriction if necessary. Serial lab studies. Sodium low 130s and stable (4) Thrombocytopenia: Plan: Serial studies. Appreciate hematology/oncology consultation and recommendations. He does have MDS and had recent sepsis. Hematology oncology consultation noted. Serial lab studies. Holding aspirin. (5) Myelodysplastic syndrome: Plan: Chronic anemia and thrombocytopenia. Receives Procrit typically once weekly. Hematology oncology consultation appreciated. He is now on broad-spectrum antibiotics per their recommendation. Transfuse as needed. 5-azacitidine added per heme-onc (6) Anemia: Plan: Related to MDS. No overt GI bleeding. Serial labs . Continue ferrous sulfate. 5-azacitidine added by hem-onc (7) H/O colectomy: Plan: Status post right hemicolectomy on 10/17/2021 for ischemic colitis and peritonitis. Recovering well. Appreciate general surgery consultation. Emerita have been removed recently by Dr. Renteria (8) Status post CVA: Plan: Holding home aspirin due to thrombocytopenia. Continue statin (9) Peripheral artery disease: Plan: Holding home aspirin due to thrombocytopenia. Continue statin. History of femoropopliteal bypass (10) Diabetes mellitus type 2 in obese: Plan: Hemoglobin A1c 8.4% in 08/2021. Hold Metformin while hospitalized. ADA diet. Basal insulin down titrated November 06, November 07, and November 08, due to documented hypoglycemia. Glucose now acceptable. Sliding scale coverage as needed (11) CAD (coronary artery disease), [place] coronary artery: Plan: History of CABG 1994. Abnormal EKG noted but no chest pain. Continue current med management. Holding aspirin due to thrombocytopenia (12) Hypertension: Plan: Blood pressures low normal on admission due to dehydration. Holding home lisinop ril. Continue atenolol with hold parameters. Continue home isosorbide. IV fluids stopped due to hypoosmolar hyponatremia. (13) Hyperlipidemia: Plan: Continue statin (14) Gastroesophageal reflux disease: Plan: Continue PPI Plan: DVT prophylaxis-SCDs only due to thrombocytopenia Disposition-to be determined. Eventual discharge to home or SNF. Admission and Anticipated Discharge Date Admission Date: November 04, 2021 Subjective Alert and oriented. No new problems. Glucose is now acceptable after down titration of Lantus over the past 3 days. Platelet count stable at 26,000. Hemoglobin stable at 7.2. Sodium stable at 131. He is anxious to go home. Will await hematology oncology input tomorrow, January 10. 5-azacitidine is new med per HemOnc. Review of Systems Review of Systems: Constitutional-no fever or chills ENT-no blurred vision, no double vision, no epistaxis, no sore throat Respiratory-no cough, no wheezing, no shortness of breath Cardiac-no palpitations, no chest pain, no syncope GI-no nausea, vomiting, diarrhea, melena, hematochezia -no urinary retention, no urinary incontinence, no dysuria, no hematuria Musculoskeletal-no joint pain, no muscle tenderness Skin-no bruising, no rashes, no pruritus Neuro-no isolated weakness, no paresthesia, no weakness Psych-no depression, no anxiety Physical Exam Physical Exam: General-alert and oriented x3, no fevers, no chills HEENT-head atraumatic and normocephalic, TMs intact bilaterally, pupils equal and reactive to light, extraocular muscles intact Neck-no lymphadenopathy or thyromegaly, trachea midline Chest-clear to auscultation percussion. No rales wheezing or rhonchi Cardiac-regular rate and rhythm, normal S1 and S2, no murmurs Abdomen-normal bowel sounds, nontender, no hepatosplenomegaly Extremities-no cyanosis, clubbing, or edema Neuro-cranial nerves II through XII intact, motor and sensory function within normal limits, strength symmetrical , no focal deficits Psych-normal affect, normal mood Results & Data Results & Data ([place]) Vital Signs (Past 12 Hours) Vital Signs Temp Pulse Pulse Resp BP BP Pulse Ox 11/09/21 07:30 36.8 C 66 20 113/46 L 96 11/09/21 07:02 71 11/09/21 03:30 36.5 C 55 L 20 134/56 L 96 11/09/21 00:00 Pulse Ox 11/09/21 07:30 11/09/21 07:02 11/09/21 03:30 11/09/21 00:00 96 Laboratory Results 11/09/21 06:54 11/09/21 06:54 PG Care Time/CCT Total # of Minutes Spent Total Time Spent with Patient: Total time spent is greater than 50% in coordination of care (as documented) at patient's floor/unit and/or counseling patient: Coding Level of Care Code 25296 Subseq Hosp Care Lvl 3 Diagnoses Generalized weakness R53.1 Abnormal EKG R94.31 Hyponatremia E87.1 Thrombocytopenia D69.6 Myelodysplastic syndrome D46.9 Anemia D64.9 H/O colectomy Z90.49 Status post CVA Z86.73 Peripheral artery disease I73.9 Diabetes mellitus type 2 in obese E11.69; E66.9 CAD (coronary artery disease), [place] coronary artery I25.10 Associated angina: unspecified whether angina present [place] vs. transplanted heart: [place] heart Hypertension I10 Hyperlipidemia E78.5 Gastroesophageal reflux disease K21.9 (1) CAD (coronary artery disease), [place] coronary artery Associated angina: unspecified whether angina present [place] vs. transplanted heart: [place] heart Qualified Code(s): I25.10 - Atherosclerotic heart disease of [place] coronary artery without angina pectoris
[2021-11-09] MEDS: ROSUVASTATIN CALCIUM 20 MG TAB PO SCH (20:34)
[2021-11-09] MEDS: INSULIN GLARGINE SOLOSTAR 100 UNITS/ML 3 ML PEN SC SCH (20:34)
[2021-11-09] MEDS: TAMSULOSIN HCL 0.4 MG CAP PO SCH (20:34)
[2021-11-10 07:29] LABS: BUN Creatinine Ratio 18.6 (10-20); Calcium 9.3 mg/dl (8.5-10.1); Creatinine Clr Calc Pharmacy 73.1 ml/min; Est GFR (African American) 96.3 ml/min; Est GFR (Non-African American) 83.1 ml/min; Potassium 3.9 mmol/L (3.5-5.1)
[2021-11-10 07:37] LABS: Hematocrit (blood only) 22.5 % (42-52); Hemoglobin 7.5 g/dL (14.0-18.0); Mean Corpuscular Hemoglobin 27.8 pg (25-34); Mean Corpuscular Hgb Conc 33.3 g/dL (32-36); Mean Corpuscular Volume 83.3 fL (80-100); Platelet Count 25 K/uL (130-400); RDW Coefficient of Variation 19.5 % (11.5-14.5); White Blood Count 6.97 K/uL (4.8-10.8)
[2021-11-10 07:57] LABS: ALC (manual) 3.36 K/uL (1.2-3.4); ANC (manual) 1.28 K/uL (1.4-6.5); Anisocytosis Present; Blast # (manual) 1.35 K/uL (0-0); Blast Cells % (manual) 19.3 %; Lymphocytes # (manual) 3.36 K/uL (1.2-3.4); Lymphocytes % (manual) 48.2 %; Monocytes # (manual) 0.92 K/uL (0.11-0.59); Monocytes % (manual) 13.2 %; Myelocytes # (manual) 0.06 K/uL (0-0); Myelocytes % (manual) 0.9 %; Neutrophils # (manual) 1.28 K/uL (1.4-6.5); Neutrophils % (manual) 18.4 %; Platelet Estimate SIGNIFIC DECREASED (Normal); Poikilocytosis Present
[2021-11-10] MEDS: ISOSORBIDE MONO EXTENDED REL 60 MG TABCR PO SCH (08:11)
[2021-11-10] MEDS: FERROUS SULFATE 325 MG TAB PO SCH (08:11)
[2021-11-10] MEDS: ATENOLOL 50 MG TABLET PO SCH (08:11)
[2021-11-10] MEDS: INSULIN ASPART PER UNIT SC SCH ×4 (08:15→20:26)
[2021-11-10] MEDS: INSULIN GLARGINE SOLOSTAR 100 UNITS/ML 3 ML PEN SQ SCH (08:16)
[2021-11-10] MEDS: PANTOprazole 40 MG TAB PO SCH (11:29)
[2021-11-10] MEDS: INSULIN GLARGINE SOLOSTAR 100 UNITS/ML 3 ML PEN SC SCH (20:26)
[2021-11-10] MEDS: TAMSULOSIN HCL 0.4 MG CAP PO SCH (20:28)
[2021-11-10] MEDS ORDERED: ROSUVASTATIN CALCIUM 10 MG TAB PO SCH (21:00)
--- NOTE | 2021-11-10 21:39 | Hospitalist Progress Note ---
Date of Service November 10, 2021 Assessment & Plan (1) Generalized weakness: Plan: Supportive care. Fluid rehydration has been stopped due to hypoosmolar hyponatremia. Continue OT and PT . Most likely just deconditioning and mild dehydration secondary to recent hemicolectomy and critical illness requiring ICU stay. Much improved since admission (2) Abnormal EKG: Plan: Denies chest pain. Highly doubt acute coronary syndrome. Telemetry. Echo on 10/17/2021 shows moderate LVH, apical inferior and anterior septum hypokinetic, baseline mid inferior wall mildly hypokinetic, EF 55-60%, mild aortic stenosis, mild to moderate MR, moderate TR, elevated RVSP 40 of 50 mmHg. History of CABG in 1994. [facility] cardiology consult appreciated (3) Hyponatremia: Plan: Hypoosmolar hyponatremia documented. IV fluids have been discontinued. Will initiate fluid restriction if necessary. Serial lab studies. Sodium low 130s and stable (4) Thrombocytopenia: Plan: Serial studies. Appreciate hematology/oncology consultation and recommendations. He does have MDS and had recent sepsis. Hematology oncology consultation noted. Serial lab studies. Holding aspirin. platelets 25 will recheck in AM (5) Myelodysplastic syndrome: Plan: Chronic anemia and thrombocytopenia. Receives Procrit typically once weekly. Hematology oncology consultation appreciated. He is now on broad-spectrum a ntibiotics per their recommendation. Transfuse as needed. 5-azacitidine added per heme-onc (6) Anemia: Plan: Related to MDS. No overt GI bleeding. Serial labs . Continue ferrous sulfate. 5-azacitidine added by hem-onc (7) H/O colectomy: Plan: Status post right hemicolectomy on 10/17/2021 for ischemic colitis and peritonitis. Recovering well. Appreciate general surgery consultation. [place] have been removed recently by Dr. Renteria (8) Status post CVA: Plan: Holding home aspirin due to thrombocytopenia. Continue statin (9) Peripheral artery disease: Plan: Holding home aspirin due to thrombocytopenia. Continue statin. History of femoropopliteal bypass (10) Diabetes mellitus type 2 in obese: Plan: Hemoglobin A1c 8.4% in 08/2021. Hold Metformin while hospitalized. ADA diet. Basal insulin down titrated November 06, November 07, and November 08, due to documented hypoglycemia. Glucose now acceptable. Sliding scale coverage as needed (11) CAD (coronary artery disease), [place] coronary artery: Plan: History of CABG 1994. Abnormal EKG noted but no chest pain. Continue current med management. Holding aspirin due to thrombocytopenia (12) Hypertension: Plan: Blood pressures low normal on admission due to dehydration. Holding home lisinopril. Continue atenolol with hold parameters. Continue home isosorbide. IV fluids stopped due to hypoosmolar hyponatremia. (13) Hyperlipidemia: Plan: Continue statin (14) Gastroesophageal reflux disease: Plan: Continue PPI Plan: DVT prophylaxis-SCDs only due to thrombocytopenia Disposition-to be determined. Eventual discharge to home or SNF. Admission and Anticipated Discharge Date Admission Date: November 10, 2021 Subjective Patient reports no new symptoms. Review of Systems Review of Systems: All systems reviewed & are unremarkable except as noted in HPI & below Physical Exam Constitutional: WD/WN, vitals as above Eyes: + anicteric sclerae ENMT: external ear and nose normal, oropharynx normal Neck: trachea midline, no thyromegaly Respiratory: normal respiratory effort, lungs clear to auscultation Cardiovascular: RRR, no murmur, no edema Rate/Rhythm: regular rate and regular rhythm Heart Sounds: + murmur (2/6 MATTHIAS at RUSB) Chest (Breasts): Chest: normal inspection of chest Gastrointestinal (Abdomen): normal bowel sounds, soft, nontender, no hepatosplenomegaly Inspection/Auscultation: + abdomen abnormal to inspection (Midline laparotomy scar well-healed, no erythema or drainage, sandee remov) Percussion/Palpation: + abdomen tender (Mild, periincisional, no rebound or guarding) and abdomen soft Musculoskeletal: Extremities: extremities normal to inspection; no cyanosis and no clubbing Skin: no rashes, warm and dry Neurologic: moves all extremities and awake; no focal motor deficits Psychiatric: A+Ox3, euthymic affect Lymphatic: no lymphedema Results & Data Results & Data ([facility]) Vital Signs (Past 12 Hours) Vital Signs Temp Pulse Pulse Pulse Resp BP BP 11/10/21 19:00 37 C 74 18 109/49 L 11/10/21 15:59 36.8 C 75 18 125/51 L 11/10/21 15:06 66 11/10/21 10:55 37 C 64 18 110/50 L Pulse Ox 11/10/21 19:00 95 11/10/21 15:59 96 11/10/21 15:06 11/10/21 10:55 95 PG Care Time/CCT Total # of Minutes Spent Total Time Spent with Patient: Total time spent is greater than 50% in coordination of care (as documented) at patient's floor/unit and/or counseling patient: Coding Level of Care Code 63637 Subseq Hosp Care Lvl 2 Diagnoses Generalized weakness R53.1 Abnormal EKG R94.31 Hyponatremia E87.1 Thrombocytopenia D69.6 Myelodysplastic syndrome D46.9 Anemia D64.9 H/O colectomy Z90.49 Status post CVA Z86.73 Peripheral artery disease I73.9 Diabetes mellitus type 2 in obese E11.69; E66.9 CAD (coronary artery disease), [place] coronary artery I25.10 Associated angina: unspecified whether angina present [place] vs. transplanted heart: [place] heart Hypertension I10 Hyperlipidemia E78.5 Gastroesophageal reflux disease K21.9 (1) CAD (coronary artery disease), [place] coronary artery Associated angina: unspecified whether angina present [place] vs. transplanted heart: [place] heart Qualified Code(s): I25.10 - Atherosclerotic heart disease of [place] coronary artery without angina pectoris
[2021-11-11 07:32] LABS: BUN Creatinine Ratio 18.6 (10-20); Calcium 9.5 mg/dl (8.5-10.1); Creatinine Clr Calc Pharmacy 73.1 ml/min; Est GFR (African American) 96.3 ml/min; Est GFR (Non-African American) 83.1 ml/min
[2021-11-11 07:44] LABS: Hematocrit (blood only) 21.8 % (42-52); Hemoglobin 7.3 g/dL (14.0-18.0); Mean Corpuscular Hemoglobin 27.7 pg (25-34); Mean Corpuscular Hgb Conc 33.5 g/dL (32-36); Mean Corpuscular Volume 82.6 fL (80-100); Platelet Count 23 K/uL (130-400); RDW Coefficient of Variation 19.5 % (11.5-14.5); RDW Standard Deviation 53.9 fL (36.4-46.3); Red Blood Count 2.64 M/uL (4.7-6.1); White Blood Count 6.13 K/uL (4.8-10.8)
[2021-11-11 07:49] LABS: ANC (manual) 1.39 K/uL (1.4-6.5); Anisocytosis Present; Basophils % (manual) 1.7 %; Hypochromasia Present; Lymphocytes # (manual) 1.28 K/uL (1.2-3.4); Lymphocytes % (manual) 20.9 %; Metamyelocytes # (manual) 0.21 K/uL (0-0); Metamyelocytes % (manual) 3.5 %; Monocytes # (manual) 0.96 K/uL (0.11-0.59); Monocytes % (manual) 15.7 %; Myelocytes # (manual) 0.26 K/uL (0-0); Myelocytes % (manual) 4.3 %; Neutrophils # (manual) 1.39 K/uL (1.4-6.5); Neutrophils % (manual) 22.6 %; Platelet Estimate SIGNIFIC DECREASED (Normal); Reactive Lymphocytes # (manual) 1.12 K/uL; Reactive Lymphocytes % (manual) 18.3 %
[2021-11-11] MEDS: INSULIN ASPART PER UNIT SC SCH ×2 (08:15→12:08)
[2021-11-11] MEDS: ISOSORBIDE MONO EXTENDED REL 60 MG TABCR PO SCH (08:16)
[2021-11-11] MEDS: FERROUS SULFATE 325 MG TAB PO SCH (08:16)
[2021-11-11] MEDS: INSULIN GLARGINE SOLOSTAR 100 UNITS/ML 3 ML PEN SQ SCH (08:16)
[2021-11-11] MEDS: ATENOLOL 50 MG TABLET PO SCH (08:17)
[2021-11-11 11:19] VITALS: TEMP 98.1
[2021-11-11] MEDS: PANTOprazole 40 MG TAB PO SCH (12:08)
[2021-11-11 14:33] VITALS: BP 120/49; O2SAT 95
[2021-11-11 16:58] VITALS: PULSE 79
--- NOTE | 2021-11-16 23:30 | Discharge Summary ---
Date of Service November 11, 2021 Admission HPI Per Admitting Provider This patient is a 80-year-old male with a history of transfusion dependent MDS, CAD status post CABG, PAD s/p femoropopliteal bypass, DM 2, HTN, hyperlipidemia, mild aortic stenosis, and prostate cancer, with recent hospitalization for ischemic colitis requiring right hemicolectomy, who presents to the ER with generalized weakness that is progressively worsening since he has been home since his colectomy. He is also been not taking his evening pills and having elevated blood sugars in the 300-500 range on a daily basis as per his significant other. He reports dyspnea on exertion but denies chest pain. No fevers but has just felt very cold. He is not having any abdominal pain or diarrhea. He denies bleeding from anywhere, no blood in the stool, no nausea or vomiting, no epistaxis, no blood in the urine, no bleeding gums. He saw his PCP today who recommended going to the ER to check to see if he needed a blood transfusion. Of note, the patient had declined a rehab stay as recommended by PT/OT and instead went home with home health. In the ER, his platelet count was low in the 30s, but his hemoglobin was increased from previous at 10.9 and he had a normal white blood cell count but had elevated blasts higher than previous on the differential. His sodium was low at 129, renal function normal, and blood sugar somewhat elevated at 207. Otherwise laboratory work-up was unremarkable, Covid-19 test negative. A urinalysis was not yet collected. Principal Diagnosis generalized weakness Discharge Exam Constitutional: WD/WN, vitals as above Eyes: + anicteric sclerae ENMT: external ear and nose normal, oropharynx normal Neck: trachea midline, no thyromegaly Respiratory: normal respiratory effort, lungs clear to auscultation Cardiovascular: RRR, no murmur, no edema Rate/Rhythm: regular rate and regular rhythm Heart Sounds: + murmur (2/6 MATTHIAS at RUSB) Chest (Breasts): Chest: normal inspection of chest Gastrointestinal (Abdomen): normal bowel sounds, soft, nontender, no hepatosplenomegaly Inspection/Auscultation: + abdomen abnormal to inspection (Midline laparotomy scar well-healed, no erythema or drainage, sandee remov) Percussion/Palpation: + abdomen tender (Mild, periincisional, no rebound or guarding) and abdomen soft Musculoskeletal: Extremities: extremities normal to inspection; no cyanosis and no clubbing Skin: no rashes, warm and dry Neurologic: moves all extremities and awake; no focal motor deficits Psychiatric: A+Ox3, euthymic affect Lymphatic: no lymphedema Discharge Data Allergies Allergy/AdvReac Type Severity Reaction Status Date / Time clopidogrel Allergy Intermediate HIVES Verified 11/13/21 10:37 clarithromycin Allergy Mild UNKNOWN Verified 11/13/21 10:37 ezetimibe Allergy Mild UNKNOWN Verified 11/13/21 10:37 rosiglitazone Allergy Mild UNKNOWN Verified 11/13/21 10:37 rofecoxib Allergy Unknown UNKNOWN Verified 11/13/21 10:37 Iodinated Contrast Media AdvReac Mild SHAKY Verified 11/13/21 10:37 Consultations 11/04/21 18:25 ED Decision to Admit Stat 11/04/21 22:21 Consult Hematology Routine 11/06/21 09:53 Consult Cardiology Routine 11/07/21 08:46 Consult General Surgery Routine Hospital Course (1) Generalized weakness: Supportive care. Fluid rehydration has been stopped due to hypoosmolar hyponatremia. Continue OT and PT . Most likely just deconditioning and mild dehydration secondary to recent hemicolectomy and critical illness requiring ICU stay. Much improved since admission will be discharged. (2) Abnormal EKG: Denies chest pain. Highly doubt acute coronary syndrome. Telemetry. Echo on 10/17/2021 shows moderate LVH, apical inferior and anterior septum hypokinetic, baseline mid inferior wall mildly hypokinetic, EF 55-60%, mild aortic stenosis, mild to moderate MR, moderate TR, elevated RVSP 40 of 50 mmHg. History of CABG in 1994. [facility] cardiology consult appreciated (3) Hyponatremia: Hypoosmolar hyponatremia documented. IV fluids have been discontinued. Will initiate fluid restriction if necessary. Serial lab studies. Sodium low 130s and stable (4) Thrombocytopenia: Serial studies. Appreciate hematology/oncology consultation and recommendations. He does have MDS and had recent sepsis. Hematology oncology consultation noted. Serial lab studies. Holding aspirin. platelets 25 will recheck in AM (5) Myelodysplastic syndrome: Chronic anemia and thrombocytopenia. Receives Procrit typically once weekly. Hematology oncology consultation appreciated. He is now on broad-spec trum antibiotics per their recommendation. Transfuse as needed. 5-azacitidine added per heme-onc (6) Anemia: Related to MDS. No overt GI bleeding. Serial labs . Continue ferrous sulfate. 5-azacitidine added by hem-onc (7) H/O colectomy: Status post right hemicolectomy on 10/17/2021 for ischemic colitis and peritonitis. Recovering well. Appreciate general surgery consultation. [place] have been removed recently by Dr. Renteria (8) Status post CVA: Holding home aspirin due to thrombocytopenia. Continue statin (9) Peripheral artery disease: Holding home aspirin due to thrombocytopenia. Continue statin. History of femoropopliteal bypass (10) Diabetes mellitus type 2 in obese: Hemoglobin A1c 8.4% in 08/2021. Hold Metformin while hospitalized. ADA diet. Basal insulin down titrated November 06, November 07, and November 08, due to documented hypoglycemia. Glucose now acceptable. Sliding scale coverage as needed (11) CAD (coronary artery disease), [place] coronary artery: History of CABG 1994. Abnormal EKG noted but no chest pain. Continue current med management. Holding aspirin due to thrombocytopenia (12) Hypertension: Blood pressures low normal on admission due to dehydration. Holding home lisinopril. Continue atenolol with hold parameters. Continue home isosorbide. IV fluids stopped due to hypoosmolar hyponatremia. (13) Hyperlipidemia: Continue statin (14) Gastroesophageal reflux disease: Continue PPI DVT prophylaxis-SCDs only due to thrombocytopenia Disposition-to be determined. Eventual discharge to home or SNF. Total Time Total Time Spent Total Time Spent (In Minutes): 32 Discharge Plan Discharge Items Patient Disposition: Home - Home Health Services Reason For Visit: GENERALIZED WEAKNESS Discharge Diagnosis: generalized weakness Activity: Resume your previous activity Non-emergency contact: Primary Care Provider Call non-emergency contact if: you have any medication questions Follow-up/Referrals: Juan Everett MD [Primary Care Provider] - Diet: Carb Consistent or DM2 and Heart Healthy Addtl Attending Provider Instructions: You have been hospitalized for an acute medical problem. During your stay at [facility], we have made an effort to correct the problem that brought you to the hospital while keeping you as comfortable as possible. Medications were used to bring your condition under control and your discharge instructions will include directions for any medications you should take after leaving the hospital. Please make sure you see your Primary Care Provider as part of your follow up plan. Recommend followup with Hem/Onc withn 1 week.Patient will be required to start 5-azacitidine. Recommend holding lisinopril and aspirin in the short term. Pending Studies at Discharge: No Stand-Alone Forms: My [facility], Smoking Cessation Medications and DC Order Prescriptions: Continued metformin 1,000 mg tablet 1,000 mg PO BID Qty: 180 RF: 3 insulin lispro [Humalog KwikPen Insulin] 100 unit/mL insulin pen See Rx Instructions SUBCUT UD Qty: 15 RF: 5 rosuvastatin 40 mg tablet 40 mg PO HS Qty: 90 RF: 1 hydrocodone-acetaminophen 5-325 mg tablet 1 tab PO .COMPLEX PRN (Reason: pain) Qty: 120 RF: 0 nitroglycerin 0.4 mg tablet, sublingual 0.4 mg Sublingual UD PRN (Reason: Angina) Qty: 30 RF: 5 isosorbide mononitrate 30 mg tablet extended release 24 hr 60 mg PO QAM Qty: 180 RF: 3 ferrous sulfate [Iron (ferrous sulfate)] 325 mg (65 mg iron) Tablet 325 mg PO QAM RF: 0 vitamin E 400 unit Capsule 400 unit PO QAM RF: 0 glucosamine-chondroitin [Osteo Bi-Flex] 250-200 mg Tablet 1 tab PO BID RF: 0 Centrum Silver 0.4-300-250 mg-mcg-mcg Tablet 1 tab PO QAM RF: 0 omega 3-qdk-uev-fish oil [Fish Oil] 1,000 mg (120 mg-180 mg) Capsule 1 cap PO BID RF: 0 Lantus U-100 Insulin 100 unit/mL solution 70 unit SUBCUT DAILY@1100 RF: 0 tamsulosin 0.4 mg capsule 0.4 mg PO HS RF: 0 omeprazole 20 mg capsule,delayed release(DR/EC) 20 mg PO DAILY@1100 RF: 0 atenolol 50 mg tablet 50 mg PO QAM RF: 0 dulaglutide 1.5 mg/0.5 mL pen injector 1.5 mg subcut WK RF: 0 Discontinued lisinopril 5 mg tablet 2.5 mg PO HS RF: 0 aspirin 81 mg Tablet,Delayed Release (Dr/Ec) 81 mg PO QAM RF: 0 Discharge Orders: Discharge Order (Routine); Ordered 11/11/21 Ordered By: Dayne Sin Admission Data Admit Date/Time: 11/10/21 08:45 Attending Provider: Dayne Sin Admit Provider: Ivelisse Bains Primary Care Provider: Juan Everett Other Providers: Ivelisse Bains ; Giancarlo Veronica V. ; Oscar Guzman ; Giancarlo Perez ; Rey Khan ; Juvencio Romero ; Leonel Howell ; Tramaine Landin ; Karissa Infante ; Denisse Jauregui ; Alena Ahn ; Roly Aviles ; Anthony Mott ; [facility] Other Interventions: Discharge Summary Assessment (RN) Last Done: 11/11/21 14:41 Coding Level of Care Code D/C DAY MANAGEMENT >30 MINS Diagnoses Generalized weakness R53.1 Abnormal EKG R94.31 Hyponatremia E87.1 Thrombocytopenia D69.6 Myelodysplastic syndrome D46.9 Anemia D64.9 H/O colectomy Z90.49 Status post CVA Z86.73 Peripheral artery disease I73.9 Diabetes mellitus type 2 in obese E11.69; E66.9 CAD (coronary artery disease), [place] coronary artery I25.10 Associated angina: unspecified whether angina present [place] vs. transplanted heart: [place] heart Hypertension I10 Hyperlipidemia E78.5 Gastroesophageal reflux disease K21.9
== END 2021-11-11 15:25 | disposition home health service (06) | DRG 641 ==
LOC: ED 15:02 → EDINP 15:02 → SUATTDRO 19:17 → 2W 19:30

== ENCOUNTER 2021-11-26 02:10 | Inpatient (IN) ==
[2021-11-26] MEDS ORDERED: ONDANSETRON INJ 2 MG/ML 2 ML VIAL IV STA (02:46)
[2021-11-26] MEDS ORDERED: fentaNYL citrate 100 MCG/2 ML VIAL IV PRN (02:46)
[2021-11-26] MEDS ORDERED: ACETAMINOPHEN 1,000 MG/100 ML VIAL IV STA (02:46)
[2021-11-26] MEDS: SODIUM CHLORIDE 0.9% 1000ML 1,000 ML IV SCH ×2 (03:01→07:04)
[2021-11-26 03:07] LABS: Hematocrit (blood only) 29.6 % (42-52); INR 1.9 (0.9-1.1); Mean Corpuscular Hemoglobin 28.9 pg (25-34); Mean Corpuscular Hgb Conc 33.8 g/dL (32-36); Mean Corpuscular Volume 85.5 fL (80-100); Platelet Count 4 K/uL (130-400); Prothrombin Time 19.8 Seconds (9.0-12.0); RDW Coefficient of Variation 17.6 % (11.5-14.5); RDW Standard Deviation 52.9 fL (36.4-46.3); Red Blood Count 3.46 M/uL (4.7-6.1); White Blood Count 2.87 K/uL (4.8-10.8)
[2021-11-26 03:27] LABS: Alanine Aminotransferase 29 U/L (7-52); Albumin Globulin Ratio 1.2 (0.9-2); Alkaline Phosphatase 57 U/L (34-104); Anion Gap 8 (3-11); Aspartate Aminotransferase 21 U/L (13-39); BUN Creatinine Ratio 27.6 (10-20); Bilirubin,Total 1.1 mg/dl (0.2-1.0); Blood Urea Nitrogen 29 mg/dl (6-23); Calcium 9.3 mg/dl (8.5-10.1); Carbon Dioxide 24 mmol/L (21-32); Chloride 97 mmol/L (98-107); Est GFR (African American) 78.4 ml/min; Est GFR (Non-African American) 67.7 ml/min; Globulin 2.6 gm/dl (2.5-4.0); Glucose 211 mg/dl (70-99(Fasting)); Lipase 7 U/L (11-82); Magnesium 1.7 mg/dl (1.7-2.4); Potassium 3.5 mmol/L (3.5-5.1); Sodium 129 mmol/L (136-145); Total Protein 5.6 gm/dl (6.0-8.3)
[2021-11-26 03:42] LABS: Tear Drop Cells 1+
[2021-11-26 03:43] LABS: ANC (manual) 0.31 K/uL (1.4-6.5); Blast # (manual) 0.51 K/uL (0-0); Blast Cells % (manual) 17.6 %; Eosinophils # (manual) 0.04 K/uL (0-0.5); Eosinophils % (manual) 1.4 %; Lymphocytes % (manual) 59.4 %; Monocytes # (manual) 0.31 K/uL (0.11-0.59); Monocytes % (manual) 10.8 %; Neutrophils # (manual) 0.31 K/uL (1.4-6.5); Neutrophils % (manual) 10.8 %
[2021-11-26 03:47] LABS: Troponin I High Sensitivity 27.3 pg/ml (0-20)
--- NOTE | 2021-11-26 04:02 | Emergency Department Note ---
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 generalized weakness. Patient with complicated past medical history and recent admission requiring exploratory laparotomy. Patient was hemodynamically stable on arrival. Patient found to be pancytopenic. Patient was started on gentle IV fluid rehydration. Patient was also found to have low sodium and magnesium and apparent dehydration. While awaiting CAT scan results and reviewing recent EMR due to complex history and recent admission, I did contact the hospitalist who evaluated the patient and began adding additional orders. Patient does have a history of thrombocytopenia, denies values worse compared to prior. Patient also found to have a newly elevated INR compared to prior. Per my review of EMR cannot find any prior history of cirrhosis or liver disease. Patient's did state he was restarted on chemotherapy recently, I was having a difficult time verifying this as this could also potentially explain his pancytopenia. CT findings were reviewed with the hospitalist, is unclear if they are due to evolving infection versus resolving inflammation postop. Patient was placed on neutropenic precautions while in the emergency room. An order was placed for continuous cardiac monitoring. The monitor shows a rate of _82_ with __normal sinus_ rhythm. Impression & Plan Generalized weakness, Pancytopenia, Nausea, Hypomagnesemia, Hyponatremia, Dehydration Discharge Plan Visit Data Chief Complaint: Weakness Stated Complaint: Weakness ED Provider: Josiane Julien Discharge Problem: Generalized weakness, Pancytopenia, Nausea, Hypomagnesemia, Hyponatremia, Dehydration Patient Disposition: Admitted As Inpatient Condition: Fair Discharge Instructions Interventions: ED Discharge Assessment Last Done: 11/26/21 12:36
[2021-11-26] MEDS ORDERED: VANCOMYCIN CONSULT ACTIVE PRN ×2 (04:49→08:21)
[2021-11-26] MEDS ORDERED: VANCOMYCIN HCL 1,000 MG in SODIUM CHLORIDE 0.9% 500 ML IV ONE (04:49)
[2021-11-26] MEDS ORDERED: CEFEPIME 2,000 MG/20 ML VIAL IV STA (04:49)
[2021-11-26] MEDS ORDERED: SODIUM CHLORIDE 0.9% 250 ML IV PRN (05:05)
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
[2021-11-26] MEDS ORDERED: PHYTONADIONE 10 MG in SODIUM CHLORIDE 0.9% 50 ML IV ONE (05:30)
[2021-11-26] MEDS ORDERED: PATIENT'S HEIGHT AND/OR WEIGHT NEEDED SCH (05:30)
[2021-11-26] MEDS ORDERED: FILGRASTIM 480 MCG/1.6 ML VIAL SC ONE (06:00)
--- NOTE | 2021-11-26 08:25 | CT Scan Report ---
CT abd pelvis wo con CLINICAL HISTORY: Upper abdominal pain and nausea. Patient is on chemotherapy. COMPARISON STUDY: 10/17/2021 CT DOSE: 424.55 mGy.cm TECHNIQUE: Standard CT of the Abdomen and Pelvis was performed without IV contrast. The patient did not receive oral contrast. A dose lowering technique was utilized adhering to the principles of RADHA Hamm. FINDINGS: Lung base: The lung bases are clear. The heart is again mildly enlarged status post mitral valve repl acement. Abdominal cavity: There is no evidence for abdominal mass, adenopathy or ascites. Liver: The liver is homogeneous in attenuation on these limited noncontrast images.. Spleen: The spleen is homogeneous in attenuation on these limited noncontrast images. Calcified granu yuri are present. Pancreas: The pancreas is homogeneous in attenuation on these limited noncontrast images. Gall Bladder: The gallbladder is well distended with no evidence for cholelithiasis, wall thickening or pericholecystic edema.. Adrenal glands: There is no change in appearance of the adrenal glands with evidence for left renal h ypertrophy. Kidneys: The kidneys are homogeneous in attenuation on these limited noncontrast images. There is no evidence for gross renal mass, calculus or hydronephrosis bilaterally. Chronic scarring is again seen bilaterally. Bowel: The patient is status post interval right hemicolectomy with surgical suture material present. Minimal postsurgical changes are seen of the fat at this site. The remaining bowel loops are normall y placed within the abdomen and pelvis without evidence for dilatation or obstruction. There is no ev idence for mass lesion. There are no inflammatory changes present. There is no evidence for free air. Bladder: There is no evidence for focal bladder wall thickening, calculus or diverticulum. : There is no evidence for pelvic mass or adenopathy. The prostate is again mildly enlarged. Vasculature: There is no evidence for focal aneurysmal dilatation of the abdominal aorta. Extensive a therosclerotic calcification is present. Osseous structures: There is no acute osseous pathology. The patient is again status post internal fi xation of lumbar spine with prominent degenerative changes present. IMPRESSION: 1. Status post interval right hemicolectomy with no postsurgical complications identified. 2. Otherwise, no acute intra-abdominal or pelvic abnormality on these limited noncontrast images. 3. Additional nonacute findings are delineated above. ACT 112: Negative or not required by law. Electronically signed by: Bill Cool M.D. 11/26/2021 8:23 AM
[2021-11-26] MEDS ORDERED: ONDANSETRON INJ 2 MG/ML 2 ML VIAL IV PRN (10:06)
[2021-11-26] MEDS ORDERED: HYDROCODONE/ACETAMOPHEN 5/325MG TAB PO PRN (10:06)
[2021-11-26] MEDS: NSS + 20MEQ KCL 20 MEQ/1,000 ML BAG IV SCH ×2 (11:06→17:00)
[2021-11-26] MEDS: ATENOLOL 50 MG TABLET PO SCH (11:51)
[2021-11-26] MEDS: ISOSORBIDE MONO EXTENDED REL 60 MG TABCR PO SCH (11:52)
[2021-11-26] MEDS: TOCOPHERYL, DL-ALPHA 400 UNITS 180 MG CAP PO SCH (11:53)
[2021-11-26] MEDS: CEROVITE ADV FORMULA TAB PO SCH (11:54)
[2021-11-26] MEDS ORDERED: CEFEPIME 1,000 MG in SYRINGE 0 ML IV SCH (13:00)
[2021-11-26] MEDS: ACETAMINOPHEN 325 MG TAB PO PRN (14:07)
--- NOTE | 2021-11-26 14:49 | Pharmacy Report ---
Pharmacy Vanc AUC Short Note - Date of Service November 26, 2021 - Assessment & Plan Assessment 80 year old M receiving Vancomycin, Metronidazole, and Cefepime for empiric treatment of sepsis/neutropenia/enteritis/colitis. * Recent GI surgery in October 2021. "CT suggests what may be natural healing and/or inflammation colitis/enteritis near site of ileocolonic anastomosis" per provider note. * Afebrile. Severe neutropenia of 310. Received Neupogen. Cultures pending. * Recommended increasing Cefepime target dose to 2 g IV every 8 hours. Metronidazole dosed appropriately. Plan Vancomycin * AUC/TYREE is the preferred PK/PD target for vancomycin * AUC guided dosing is effective and associated with decreased risk of nephrotoxicity compared to traditional trough targets * Loading dose of 1000 mg IV given in ED. * Maintenance dose will be 1000 mg IV every 24 hours * Expected to achieve therapeutic steady-state AUC/TYREE * No trough will be ordered at this time Pharmacy will continue to follow and will adjust dose/frequency as necessary. Thank you.
[2021-11-26] MEDS ORDERED: LACTATED RINGER'S 1,000 ML IV ONE (15:04)
[2021-11-26] MEDS: metroNIDAZOLE 500 MG/100 ML BAG IV SCH (16:27)
[2021-11-26 17:13] LABS: Appearance Urine Clear (Clear); Bacteria Urine Automated Negative (Negative); Bilirubin Urine Negative (Negative); Blood Urine Negative (Negative); Color Urine Yellow; Epithelial Cell Urine Auto >30 /lpf (0-5); Glucose Urine UA Negative (Negative); Ketones Urine Trace (Negative); Leukocyte Esterase Urine Negative (Negative); Nitrite Urine Negative (Negative); Protein Urine 1+ (Negative); RBC Urine Automated 0-4 /hpf (0-4); Specific Gravity Urine 1.023 (1.000-1.030); Urobilinogen Urine Negative (Negative)
[2021-11-26] MEDS ORDERED: LACTATED RINGER'S 1,000 ML IV SCH (17:45)
--- NOTE | 2021-11-26 18:24 | Communication Note ---
Date of Service: November 26, 2021 Patient seen during bedside rounds. Upon further investigation, his HPI seems more consistent with deconditioning/dehydration, potentially set off by his recent abd pain. The read of his CT abdomen this morning was reported as normal so less likely infection from intestinal source. However, with patient's significant myelosuppression/immunosuppression there is a higher chance of infection so will continue abx for at least 48h until cultures further result. Additionally patent had BP down to 70s/40s at bedside. Was given 1L LR bolus, which improved IVF. Will continue to monitor hemodynamics and fluid resuscitate further PRN. On NSS + KCl for maintenance. I personally examined the patient and verified all ceballos points of history and exam, discussed case, and agree with decision making with Dr Tanner. Seen same day of admission. As above. Suspect poor p.o. intake leading to failure to thrive/hypotensionwhether this is all deconditioning related to his recent prolonged hospitalization, or it is related to the source of his abdominal pain is not yet clearserial exams/serial labs etc. However, given his MDS and new neutropenia and thrombocytopeniaobviously have to manage as though this is septic mediated until proven otherwisehence broad antibiotics, broad work-up, and serial exams for this as well. Continue IV fluids. Resident Activity Tracking Resident Involvement: Resident Care Provided Care Provided: Adult Hospital Medicine
[2021-11-26 20:10] LABS: Nucleated RBC # (auto) 0.08 K/uL (0-0); Nucleated RBC % (auto) 2.5 %
[2021-11-26 20:27] LABS: INR 1.6 (0.9-1.1); Partial Thromboplastin Ratio 1.1; Partial Thromboplastin Time 28.9 Seconds (21.0-31.0); Prothrombin Time 16.6 Seconds (9.0-12.0)
[2021-11-26 20:41] LABS: Total Protein 4.4 gm/dl (6.0-8.3)
[2021-11-26 20:42] LABS: Albumin Globulin Ratio 1.2 (0.9-2); Albumin Level 2.4 gm/dl (3.4-5.0); BUN Creatinine Ratio 26.2 (10-20); Bilirubin,Total 1.2 mg/dl (0.2-1.0); Calcium 8.2 mg/dl (8.5-10.1); Creatinine Clr Calc Pharmacy 60.2 ml/min; Est GFR (African American) 80.3 ml/min; Est GFR (Non-African American) 69.3 ml/min; Magnesium 1.4 mg/dl (1.7-2.4); Potassium 3.6 mmol/L (3.5-5.1)
[2021-11-26 20:44] LABS: Hematocrit (blood only) 21.3 % (42-52); Hemoglobin 7.3 g/dL (14.0-18.0); Mean Corpuscular Hemoglobin 29.3 pg (25-34); Mean Corpuscular Hgb Conc 34.3 g/dL (32-36); Mean Corpuscular Volume 85.5 fL (80-100); Platelet Count 30 K/uL (130-400); RDW Coefficient of Variation 17.7 % (11.5-14.5); RDW Standard Deviation 53.6 fL (36.4-46.3); Red Blood Count 2.49 M/uL (4.7-6.1); White Blood Count 3.23 K/uL (4.8-10.8)
[2021-11-26 21:16] LABS: Microcytosis Present; Ovalocytes 1+; Platelet Estimate SIGNIFIC DECREASED (Normal)
[2021-11-26 21:17] LABS: Lymphocytes % (manual) 69.1 %; Monocytes % (manual) 4.4 %; Neutrophils % (manual) 20.6 %
[2021-11-26 21:18] LABS: Basophils % (manual) 1.5 %; Eosinophils % (manual) 1.5 %; Nucleated Red Blood Cells (manual) 7.4 %
[2021-11-26 21:19] LABS: Blast Cells % (manual) 2.9 %
[2021-11-26 21:27] LABS: ANC (manual) 0.67 K/uL (1.4-6.5)
[2021-11-26 21:28] LABS: ALC (manual) 2.23 K/uL (1.2-3.4); Basophils # (manual) 0.05 K/uL (0-0.2); Blast # (manual) 0.09 K/uL (0-0); Eosinophils # (manual) 0.05 K/uL (0-0.5); Lymphocytes # (manual) 2.23 K/uL (1.2-3.4); Monocytes # (manual) 0.14 K/uL (0.11-0.59); Neutrophils # (manual) 0.67 K/uL (1.4-6.5)
[2021-11-26] MEDS: TAMSULOSIN HCL 0.4 MG CAP PO SCH (22:13)
[2021-11-26] MEDS: ROSUVASTATIN CALCIUM 20 MG TAB PO SCH (22:13)
[2021-11-27] MEDS: metroNIDAZOLE 500 MG/100 ML BAG IV SCH ×4 (00:20→23:16)
[2021-11-27] MEDS ORDERED: CEFEPIME 2,000 MG in SYRINGE 0 ML IV SCH (02:00)
[2021-11-27] MEDS ORDERED: SODIUM CHLORIDE 0.9% 250 ML IV PRN (02:44)
--- NOTE | 2021-11-27 02:55 | Communication Note ---
Date of Service: November 27, 2021 ~3 pt Hb drop noted since admission. Patient endorses fatigue, generalized wkness and mild dizziness, worse than usual. Denies hemoptysis or bloody stool on exam: conversing. slightly pale eyelids. transfusing 1u prbc hemmocult pos ordered hemolysis labs. consider follow cbc q4. defer cta abd (at increased risk of bleeding because of thrombocytopenia) for now. however, exam and hpi less suggestive of hemorrhage
[2021-11-27] MEDS: ACETAMINOPHEN 325 MG TAB PO PRN (04:15)
[2021-11-27 04:17] LABS: Albumin Globulin Ratio 1.1 (0.9-2); Albumin Level 2.5 gm/dl (3.4-5.0); BUN Creatinine Ratio 26.5 (10-20); Bilirubin Direct 0.4 mg/dl (0-0.2); Bilirubin,Total 1.4 mg/dl (0.2-1.0); Calcium 8.5 mg/dl (8.5-10.1); Creatinine Clr Calc Pharmacy 63.3 ml/min; Est GFR (African American) 85.2 ml/min; Est GFR (Non-African American) 73.6 ml/min; Globulin 2.2 gm/dl (2.5-4.0); Magnesium 1.4 mg/dl (1.7-2.4); Potassium 3.7 mmol/L (3.5-5.1); Total Protein 4.7 gm/dl (6.0-8.3)
[2021-11-27 05:10] LABS: ALC (manual) 2.11 K/uL (1.2-3.4); ANC (manual) 0.46 K/uL (1.4-6.5); Blast # (manual) 0.37 K/uL (0-0); Blast Cells % (manual) 11.6 %; Eosinophils # (manual) 0.06 K/uL (0-0.5); Eosinophils % (manual) 1.8 %; Hematocrit (blood only) 22.9 % (42-52); Hemoglobin 7.8 g/dL (14.0-18.0); Lymphocytes # (manual) 2.11 K/uL (1.2-3.4); Mean Corpuscular Hemoglobin 29.1 pg (25-34); Mean Corpuscular Hgb Conc 34.1 g/dL (32-36); Mean Corpuscular Volume 85.4 fL (80-100); Monocytes # (manual) 0.17 K/uL (0.11-0.59); Monocytes % (manual) 5.4 %; Myelocytes # (manual) 0.03 K/uL (0-0); Myelocytes % (manual) 0.9 %; Neutrophils # (manual) 0.46 K/uL (1.4-6.5); Neutrophils % (manual) 14.3 %; Nucleated RBC # (auto) 0.09 K/uL (0-0); Nucleated RBC % (auto) 2.8 %; Platelet Count 18 K/uL (130-400); RBC Morphology Unremarkable; RDW Coefficient of Variation 17.8 % (11.5-14.5); RDW Standard Deviation 54.1 fL (36.4-46.3); Red Blood Count 2.68 M/uL (4.7-6.1); Reticulocyte % < 0.5 % (0.5-2.0); Reticulocytes # < 0.02 10^6/uL (0.02-0.10)
--- NOTE | 2021-11-27 06:03 | Electrocardiogram Report ---
Test Reason : Blood Pressure : / mmHG Vent. Rate : 081 BPM Atrial Rate : 081 BPM P-R Int : 150 ms QRS Dur : 088 ms QT Int : 382 ms P-R-T Axes : 036 023 -64 degrees QTc Int : 443 ms Normal sinus rhythm T wave abnormality, consider inferior ischemia Abnormal ECG When compared with ECG of 06-NOV-2021 09:22, Criteria for Anterior infarct are no longer Present T wave inversion less evident in Inferior leads Confirmed by Mike Lima ([id number]) on 11/27/2021 6:02:30 AM Referred By: REFERRED SELF Confirmed By:Mike Lima
--- NOTE | 2021-11-27 07:54 | XRay Report ---
XR chest 2V PA/lateral HISTORY: neutropenic sepsis, ?infiltrate COMPARISON: Chest 10/18/2021. FINDINGS: No pneumothorax. The cardiac silhouette is top normal in size. There are poststernotomy dexter nges. Low lung volumes. A few small bibasilar linear densities favor subsegmental atelectasis or scar ring. Otherwise, no new focal lung consolidations to suggest pneumonia. No evidence for pulmonary key ma. Surgical clips within left upper quadrant. Old, healed right lower rib fractures. Trace bilateral pleural effusions. IMPRESSION: 1. Trace bilateral pleural effusions. 2. No evidence for pulmonary edema. ACT 112: Negative or not required by law. Electronically signed by: Kvng Armando M.D. 11/27/2021 7:52 AM
[2021-11-27] MEDS ORDERED: VANCOMYCIN HCL 1,000 MG in SODIUM CHLORIDE 0.9% 250 ML IV SCH (08:00)
[2021-11-27] MEDS: ISOSORBIDE MONO EXTENDED REL 60 MG TABCR PO SCH (08:54)
[2021-11-27] MEDS: ATENOLOL 50 MG TABLET PO SCH (08:54)
[2021-11-27] MEDS: TOCOPHERYL, DL-ALPHA 400 UNITS 180 MG CAP PO SCH (08:54)
[2021-11-27] MEDS: MAGNESIUM SULFATE / D5W 1 GM/100 ML BAG IV SCH ×2 (08:54→11:56)
[2021-11-27] MEDS: FERROUS SULFATE 325 MG TAB PO SCH (08:54)
[2021-11-27] MEDS: CEROVITE ADV FORMULA TAB PO SCH (08:55)
--- NOTE | 2021-11-27 09:11 | Medical Student Progress Note ---
Date of Service November 27, 2021 Assessment & Plan (1) Neutropenia associated with infection: Plan: Vitals and energy have improved, no identified source of infection Will continue empiric coverage for an additional day due to low ANC (2) Myelodysplastic syndrome: Plan: Recent drop in hemoglobin triggered hemolysis studies, results showed concerns for evolution into AML Consul hem/onc (3) Elevated troponin: Plan: Down from 41 to 34, likely stress related rather than VT in etiology Continue to monitor (4) Diabetes mellitus type 2 in obese: Plan: SSI (5) Failure to thrive in adult: Plan: Continue supportive care and encourage eating Speech consult placed (6) Heme positive stool: Plan: Etiology likely due to his recent surgeries rather than a significant bleed and his decreased hemoglobin is more likely to be due to his myelodysplastic syndrome and possible evolution. Continue to monitor hemoglobin for significant drops and work of with hematology. Plan: FEN/GI: DM2, ppx: SCDs. code: DNR/DNI, dispo: med Admission and Anticipated Discharge Date Admission Date: November 26, 2021 Supervising Attestation I personally examined the patient and verified all ceballos points of history and exam, discussed case, and agree with decision making with S Ankur MS4 feeling better no sob. cough but nothing has changed. belly pain gone. no dysuria. no skin lesions/painful areas/joint pain vitals noted nad heent nc at mmm breathing unlabored lungs clear no r/r/w good effort cardio somewhat distant but no r/m/g abd soft nd nt ext no c/c/e no calf tenderness. skin no erythema/rashes no icterus failure to thrive/pancytopenia/hypotension -hypotension improved w fluids - may have all been poor PO intake/failure to thrive from deconditioning from recent long hospital stay -on empiric abx but as serial exams/w/u/cultures are having no yield - less likely this is septic mediated (follow into tomorrow if still no evidence of infection then strongly consider dc abx) -heme/onc to see as AML transformation maybe cause for failure to thrive elevated troponin - fortunately quite mild almost certainly demand ischemia echo similar to previous for now continue empiric abx and serial exams, await heme/onc input, otherwise as above Geoff Juvencio is a 80 year old male on hospital day 2 presenting with abdominal pain, weakness, and nausea. Today he feels better with energy. His abdominal pain has improved and he has no nausea. His appetite has improved as well but he is not eating the hospital food. He has not had any fevers, chills, or dizziness. He did not notice any blood in his stool but is aware of the positive hemocult. His hemoglobin dropped from 10 to 7.3. Talking to girlfriend she notes he has had some trouble swallowing. Review of Systems Review of Systems: All systems reviewed & are unremarkable except as noted in HPI & below Physical Exam Physical Exam: General: Alert and oriented x 3. No acute distress HEENT: mucous membranes dry Pulm: clear to auscultation, no wheezes/rales/rhonchi, no clubbing Cardiac: regular rate/rhythm, no murmurs/rubs/gallops, pulses strong and equal Abdominal: Nontender, nondistended, soft. Results & Data ([facility]) Vital Signs (Past 12 Hours) Vital Signs Temp Pulse Pulse Resp BP BP Pulse Ox 11/27/21 08:24 36.5 C 75 18 122/66 97 11/27/21 06:20 36.5 C 73 16 94/52 L 95 11/27/21 05:20 93/64 L 11/27/21 04:50 36.3 C L 77 16 89/45 L 94 11/27/21 04:35 36.5 C 65 18 92/57 L 97 11/27/21 04:18 37.4 C 82 16 94/54 L 95 11/27/21 04:07 36.6 C 87 16 100/59 L 92 11/27/21 00:08 102 H 102/60 11/26/21 22:52 36.6 C 81 18 118/49 L 93 11/26/21 22:18 80
[2021-11-27] MEDS: CEFEPIME 2,000 MG in SYRINGE 0 ML IV SCH ×2 (10:39→18:35)
--- NOTE | 2021-11-27 17:48 | Billing Data ---
Date of Service November 27, 2021 Coding Level of Care Code 92330 Subseq Hosp Care Lvl 3
[2021-11-27 20:33] LABS: Albumin Globulin Ratio 1.1 (0.9-2); Albumin Level 2.3 gm/dl (3.4-5.0); BUN Creatinine Ratio 22.1 (10-20); Bilirubin,Total 1.2 mg/dl (0.2-1.0); Calcium 8.5 mg/dl (8.5-10.1); Est GFR (African American) 79.3 ml/min; Est GFR (Non-African American) 68.4 ml/min; Globulin 2.1 gm/dl (2.5-4.0); Magnesium 1.8 mg/dl (1.7-2.4); Potassium 3.2 mmol/L (3.5-5.1); Total Protein 4.4 gm/dl (6.0-8.3)
[2021-11-27] MEDS: TAMSULOSIN HCL 0.4 MG CAP PO SCH (22:18)
[2021-11-27] MEDS: ROSUVASTATIN CALCIUM 20 MG TAB PO SCH (22:18)
[2021-11-27 22:47] LABS: Hematocrit (blood only) 23.4 % (42-52); Hemoglobin 8.2 g/dL (14.0-18.0); Mean Corpuscular Hemoglobin 29.9 pg (25-34); Mean Corpuscular Volume 85.4 fL (80-100); Nucleated RBC # (auto) 0.05 K/uL (0-0); Nucleated RBC % (auto) 1.7 %; Platelet Count 13 K/uL (130-400); RDW Coefficient of Variation 17.4 % (11.5-14.5); RDW Standard Deviation 52.9 fL (36.4-46.3); Red Blood Count 2.74 M/uL (4.7-6.1); White Blood Count 2.96 K/uL (4.8-10.8)
[2021-11-27] MEDS ORDERED: POTASSIUM CHLORIDE CRTAB 20 MEQ TABCR PO STA (22:47)
[2021-11-27] MEDS ORDERED: MAGNESIUM SULFATE / D5W 1 GM/100 ML BAG IV ONE (22:47)
[2021-11-27 22:50] LABS: Echinocytes 1+; Polychromasia 1+
[2021-11-27 22:55] LABS: ALC (manual) 2.47 K/uL (1.2-3.4); ANC (manual) 0.13 K/uL (1.4-6.5); Blast # (manual) 0.21 K/uL (0-0); Eosinophils # (manual) 0.05 K/uL (0-0.5); Eosinophils % (manual) 1.7 %; Lymphocytes # (manual) 2.47 K/uL (1.2-3.4); Lymphocytes % (manual) 83.5 %; Monocytes % (manual) 3.5 %; Neutrophils # (manual) 0.13 K/uL (1.4-6.5); Neutrophils % (manual) 4.3 %
[2021-11-27] MEDS ORDERED: NITROGLYCERIN SL 0.4 MG/TAB TAB SL PRN (23:14)
[2021-11-27] MEDS: SODIUM CHLORIDE 0.9% 1000ML 1,000 ML IV SCH (23:16)
[2021-11-27] MEDS ORDERED: NITROGLYCERIN 2% OINTMENT 30GM TUBE EXT ONE (23:17)
[2021-11-27] MEDS: VANCOMYCIN HCL 1,000 MG in SODIUM CHLORIDE 0.9% 250 ML IV SCH (23:44)
[2021-11-28] MEDS: CEFEPIME 2,000 MG in SYRINGE 0 ML IV SCH ×3 (01:28→17:29)
--- NOTE | 2021-11-28 03:10 | Consultation Report ---
DATE OF SERVICE: 11/27/2021. REASON FOR CONSULTATION: MDS with concern for progression to AML. 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 Veronica and Indira Wayne at [facility]. Patient was initially diagnosed with high risk MDS on 04/29/2021 when he had presented with anemia for which bone marrow biopsy was performed. More recently, patient was noted to have worsening pancytopenia with platelet count dropping from baseline of about 300,000 from baseline of about 150-200,000 to 23,000 noted on 11/05/2021. Prior to this, the patient had been on erythropoeitin supplementation and transfusion support. Due to worsening pancytopenia, he was more recently started on subcutaneous 5-azacytidine for which he received 5 days of treatment between 11/17/2021 and 11/21/2021. Patient presented to the emergency room on 11/26/2021 with generalized weakness, abdominal pain and failure to thrive. Labs obtained at that time had revealed leukopenia with white count of 2.87, ANC of 0.31, platelets of 4000, hemoglobin of 10 with hematocrit of 29.3, and INR of 1.9. Peripheral smear review by pathology obtained on 11/27/2021 revealed pancytopenia, myelodysplasia and increased circulating blasts with concern for progression to either MDS with excess blasts-2 or AML. Circulating blast percentage was about 11%. During my evaluation of patient today, he complains of generalized weakness, shortness of breath, occasional chest pain. He is currently on broad-spectrum antibiotics for suspected neutropenic sepsis. PAST MEDICAL HISTORY: 1. Hypertension. 2. Atrial fibrillation with RVR. 3. Peripheral artery disease. 4. Coronary artery disease, status post CABG. 5. History of CVA. 6. History of diabetes mellitus type 2. 7. MDS with ringed sideroblasts. PAST SURGICAL HISTORY: 1. Exploratory laparotomy with right colectomy and ileocolic anastomosis on 10/17/2021. 2. Coronary artery bypass graft in 1993. 3. History of ORIF. 4. History of femoral popliteal bypass surgery. FAMILY HISTORY: Significant for breast cancer in his mother and prostate cancer in his father and brother. SOCIAL HISTORY: More than a 13-[id number]-aicb history of smoking. Denies alcohol and illicit drug use. REVIEW OF SYSTEMS: CONSTITUTIONAL: Endorses fatigue. Denies weight loss, night sweats or fever. CARDIOVASCULAR: Positive for shortness of breath, palpitations, or chest pain. RESPIRATORY: Positive for shortness of breath. GASTROINTESTINAL: Denies diarrhea, hematemesis, melena, nausea, vomiting. GENITOURINARY: Negative. NEUROLOGIC: Positive for generalized weakness. No headaches or dizziness. PHYSICAL EXAMINATION: VITAL SIGNS: Blood pressure 113/58, heart rate 80, respiratory rate 18, temperature 36.7, and oxygen saturation 92% on room air. EYES: Negative for conjunctival erythema or icterus. NECK: No palpable masses. RESPIRATORY: Lungs were clear bilaterally. CARDIOVASCULAR: Irregularly irregular heartbeat. GASTROINTESTINAL: Abdomen is soft and nontender with normal bowel sounds. LYMPHATIC SYSTEM: No palpable peripheral lymphadenopathy. LABORATORY DATA: Labs on 11/27/2021 significant for white cell count of 3.2, hemoglobin of 7.8, hematocrit of 22.9, platelet count of 18,000 with ANC of 460 and blasts. Coagulation panel, INR on 11/26/2021 was 1.6. IMAGING STUDIES: CT abdomen and pelvis on 11/26/2021 revealed status post interval right hemicolectomy with no postsurgical complications. Chest x-ray on 11/26/2021 revealed trace bilateral pleural effusions with no evidence of pulmonary edema. IMPRESSION: 1. History of myelodysplastic syndromes with high risk features with possible transformation to acute myeloid leukemia. 2. Severe neutropenia. 3. Possible sepsis. 4. Coagulopathy. Pleasant gentleman with high risk MDS, who was admitted with generalized weakness and severe pancytopenia with clinical suspicion of sepsis. Peripheral smear is concerning for progression of disease to possibly AML. I discussed my thoughts with the patient. Given his very poor performance status at this time, I do not believe he would be a good candidate for intensive induction chemotherapy for AML. Discussed options for treatment with the patient including obtaining a bone marrow biopsy and based on this, determining whether he would be a candidate for continuation of 5-azacitidine with venetoclax or switching to supportive care. I also discussed the option of transfer to [facility] for bone marrow biopsy and possible induction chemotherapy. The patient indicated that he would like to receive active treatment. Given the timing of presentation and inability to get bone marrow biopsy results until next week, would recommend transferring him to tertiary center. In the meantime, he will benefit from obtaining labs to evaluate for tumor lysis syndrome such as uric acid and phosphate level.Also check fibrinogen to assess for DIC given coagulopathy. Continue supportive care with transfusions as needed prior to transfer. Thank you for this consult. Hematology will continue following the patient while he is in the hospital and I will see him after discharge from tertiary center. Please feel free to call if you have any further questions. Job ID: [id number] [facility]STERClay
--- NOTE | 2021-11-28 06:08 | Electrocardiogram Report ---
Test Reason : Blood Pressure : / mmHG Vent. Rate : 078 BPM Atrial Rate : 078 BPM P-R Int : 162 ms QRS Dur : 084 ms QT Int : 402 ms P-R-T Axes : 037 016 -13 degrees QTc Int : 458 ms Normal sinus rhythm Possible Anterior infarct , age undetermined Nonspecific T wave abnormality Abnormal ECG When compared with ECG of 26-NOV-2021 02:30, Nonspecific T wave abnormality, improved in Anterolateral leads Confirmed by Mike Lima ([id number]) on 11/28/2021 6:08:18 AM Referred By: REFERRED SELF Confirmed By:Mike Lima
[2021-11-28] MEDS ORDERED: ACETAMINOPHEN 1000 MG/100 ML IV IV ONE (09:11)
[2021-11-28] MEDS: ATENOLOL 50 MG TABLET PO SCH (09:12)
[2021-11-28] MEDS: TOCOPHERYL, DL-ALPHA 400 UNITS 180 MG CAP PO SCH (09:12)
[2021-11-28] MEDS: metroNIDAZOLE 500 MG/100 ML BAG IV SCH ×2 (09:12→17:44)
[2021-11-28] MEDS: ISOSORBIDE MONO EXTENDED REL 60 MG TABCR PO SCH (09:12)
[2021-11-28] MEDS: FERROUS SULFATE 325 MG TAB PO SCH (09:12)
[2021-11-28] MEDS: CEROVITE ADV FORMULA TAB PO SCH (09:12)
[2021-11-28 09:17] LABS: Albumin Level 2.3 gm/dl (3.4-5.0); BUN Creatinine Ratio 23.7 (10-20); Calcium 8.5 mg/dl (8.5-10.1); Creatinine Clr Calc Pharmacy 64.9 ml/min; Est GFR (African American) 90.8 ml/min; Est GFR (Non-African American) 78.4 ml/min; Magnesium 1.9 mg/dl (1.7-2.4); Phosphorus 2.4 mg/dl (2.5-4.9); Potassium 3.6 mmol/L (3.5-5.1)
[2021-11-28 09:32] LABS: Hematocrit (blood only) 25.2 % (42-52); Hemoglobin 8.9 g/dL (14.0-18.0); Mean Corpuscular Hemoglobin 29.7 pg (25-34); Mean Corpuscular Hgb Conc 35.3 g/dL (32-36); Platelet Count 7 K/uL (130-400); RDW Coefficient of Variation 17.5 % (11.5-14.5); RDW Standard Deviation 52.5 fL (36.4-46.3); White Blood Count 3.08 K/uL (4.8-10.8)
[2021-11-28 09:35] LABS: Echinocytes 1+; Platelet Estimate SIGNIFIC DECREASED (Normal); Tear Drop Cells 1+
[2021-11-28 09:36] LABS: ALC (manual) 1.96 K/uL (1.2-3.4); ANC (manual) 0.39 K/uL (1.4-6.5); Blast # (manual) 0.53 K/uL (0-0); Blast Cells % (manual) 17.3 %; Lymphocytes # (manual) 1.96 K/uL (1.2-3.4); Lymphocytes % (manual) 63.7 %; Monocytes # (manual) 0.14 K/uL (0.11-0.59); Monocytes % (manual) 4.5 %; Myelocytes # (manual) 0.03 K/uL (0-0); Myelocytes % (manual) 0.9 %; Neutrophils # (manual) 0.39 K/uL (1.4-6.5); Neutrophils % (manual) 12.7 %; Promyelocytes # (manual) 0.03 K/uL (0-0); Promyelocytes % (manual) 0.9 %
[2021-11-28 10:02] LABS: Fibrinogen 448 mg/dl (184-400)
[2021-11-28 10:05] LABS: D Dimer 2980 ug/L FEU (0-500)
[2021-11-28] MEDS: SODIUM CHLORIDE 0.9% 1000ML 1,000 ML IV SCH (13:44)
--- NOTE | 2021-11-28 15:44 | Medical Student Progress Note ---
Date of Service November 28, 2021 Assessment & Plan (1) Neutropenia associated with infection: Plan: No identified source of infection, decreased energy more likely to be associated with progression of AML Continue empiric coverage until discharge due to low ANC (2) Myelodysplastic syndrome: Plan: Recent drop in hemoglobin triggered hemolysis studies, results showed concerns for evolution into AML Tumor lysis syndrome workup did not show an increase in phosphate or uric acid, appears stable at this time Transfer to [place] [facility] for bone marrow biopsy, further workup, and treatment considerations (3) Elevated troponin: Plan: Down from 41 to 34, likely stress related rather than NC in etiology Continue to monitor (4) Diabetes mellitus type 2 in obese: Plan: SSI (5) Failure to thrive in adult: Plan: Continue supportive care, IV fluids, and encourage eating Speech consult placed, on aspiration precautions (6) Heme positive stool: Plan: Etiology likely due to his recent surgeries rather than a significant bleed and his decreased hemoglobin is more likely to be due to his myelodysplastic syndrome and possible evolution. Hemoglobin today was 8.2, indicating active bleeding is unlikely. Plan: FEN/GI: DM2, ppx: SCDs. code: DNR/DNI, dispo: med Admission and Anticipated Discharge Date Admission Date: November 26, 2021 Supervising Attestation I personally examined the patient and verified all ceballos points of history and exam, discussed case, and agree with decision making with Misael Pascual MS4 Seen multiple times today. Vaguely feeling worse than yesterdaybut stable as the day goes on. No appetite and a little bit of a return of abdominal pain. Nothing else focused or specific. He is pending transferhopefully tonight versus early tomorrow. vitals noted nad heent nc at mmm abdomen repeatedly soft but mild right mid/lower tenderness without guarding rebound or rigidity. No peritoneal signs. failure to thrive/pancytopenia/hypotension -hypotension improved w fluids -on empiric abx but as serial exams/w/u/cultures are having no yield - less likely this is septic mediated, but certainly very high riskinitial plan was to stop antibiotics if no infectious signs evolved through today, but with recurrence of abdominal painwe will continue for now with serial exams) -Also getting more concerning that AML is the cause of his failure to thriveto that end he is pending transfer to tertiary for heme-onc intervention elevated troponin - fortunately quite mild almost certainly demand ischemia echo similar to previous otherwise as above, pending transfer to tertiary Subjective Juvencio is a 80 year old male on hospital day 3 presenting with abdominal pain, weakness, and nausea. Today he feels poor with little energy. He reports abdominal pain. His appetite is poor. He has not had any fevers, chills, or dizziness. Consult with hem/onc indicates possible progression of myelodysplasia to AML. Plans to transfer him to [place] for further workup tomorrow. Review of Systems Review of Systems: All systems reviewed & are unremarkable except as noted in HPI & below Physical Exam Physical Exam: General: Alert and oriented x 3. No acute distress HEENT: mucous membranes dry Pulm: clear to auscultation, no wheezes/rales/rhonchi, no clubbing Cardiac: regular rate/rhythm, no murmurs/rubs/gallops, pulses strong and equal Abdominal: Left lower quadrant tenderness, soft, no guarding or rebound tenderness, Results & Data ([facility]) Vital Signs (Past 12 Hours) Vital Signs Temp Pulse Pulse Resp BP Pulse Ox 11/28/21 15:21 36.8 C 69 18 106/55 L 94 11/28/21 11:05 68 105/54 L 11/28/21 10:55 67 94/56 L 11/28/21 07:43 37.3 C 81 18 130/61 93 11/28/21 06:16 82 11/28/21 04:05 37.3 C 79 18 123/53 L 93
--- NOTE | 2021-11-28 16:48 | Billing Data ---
Date of Service November 28, 2021 Coding Level of Care Code 38597 Subseq Hosp Care Lvl 3
[2021-11-28] MEDS ORDERED: ACETAMINOPHEN 500 MG TAB PO SCH (17:00)
[2021-11-28] MEDS: VANCOMYCIN HCL 1,000 MG in SODIUM CHLORIDE 0.9% 250 ML IV SCH (17:29)
[2021-11-28] MEDS ORDERED: ACETAMINOPHEN 10MG/ML PEDIATRIC DOSING IV ONE (18:05)
[2021-11-28] MEDS ORDERED: MoRPHine SULFATE 2 MG/ML CARP IV PRN (18:25)
--- NOTE | 2021-11-28 18:30 | Communication Note ---
Date of Service: November 28, 2021 Informed that patient was suddenly complaining of 10 out of 10 abdominal pain. Went to reassess. Patient noted the pain became abruptly worse about 1/2-hour ago. He does not note anything that seems to have caused it, he was not doing anything at the time that it caused it, he notes that it really just came on out of the blue. When asking him to localize he first points all through his abdomen, although does favor the right lower quadrant area where he has been more painful before. He does not have any nausea or vomiting just very intense pain. No other new complaints. Vitals noted. EKG is being transmitted into the systemnot available for my review, and discussion with resident physician she was informed that it said SVTalthough whenever I examined the patient his heart rate sounds to be about 100 and regular, and whenever I review on the monitor he is in regular rhythm at 83. Breathing unlabored lungs without rales rhonchi or wheezes. Abdomen is still soft and nondistended, he now has diffuse tenderness worse than beforefortunately still no peritoneal signs of guarding rebound or rigidity, the tenderness seems to be very diffuse may be favoring the right lower quadrant area. Skin without rashes, his incision is midline and healing well. Abrupt worsening of abdominal painconcern given his general lack of immune system reserve about infectious abdominal processis on broad antibiotic coveragewe will continue this. Stat CBC, basic metabolic panel, lactate. Stat repeat of CT with IV and p.o. contrast given that the previous CT was limited by no contrast. Discussed with patient the necessity of p.o. contrast and asked him to do the best that he could. Reviewed listed IV contrast allergy as "shakiness"and also noted that patient had had IV contrast during his CT scan on 10/17 with no significant complication, I had seen him only a few hours after that CT was completed during that hospital stay. I believe that the risk of inadequate diagnostic evaluation missing potential burgeoning abdominal process far outweighs the risk of potentially needing to mitigate an IV contrast reactionthat is not very likely to actually occur. Will personally signed out to overnight coverage, transfer patient to telemetry for ongoing closer monitoring, and still awaiting transfer to tertiary care. At this point time he still seems stable to go via ACLS ground, but as his situation evolves, it could be potential that he may need air transport. Also depending on the findings of his CT, surgical consult may be required. IV Tylenol for pain primarily, given that he was hypotensive earlier in his hospital stay, hesitate to go to high in potency with narcotics to risk reducing SVR, but will order 1 mg morphine for breakthrough painand can titrate up if needed Demand ischemiawe will repeat troponin to trend
[2021-11-28] MEDS ORDERED: ACETAMINOPHEN 1,000 MG/100 ML VIAL IV ONE (18:45)
[2021-11-28 19:17] LABS: BUN Creatinine Ratio 26.7 (10-20); Calcium 8.3 mg/dl (8.5-10.1); Creatinine Clr Calc Pharmacy 67.1 ml/min; Est GFR (African American) 94.5 ml/min; Est GFR (Non-African American) 81.5 ml/min; Potassium 3.5 mmol/L (3.5-5.1)
[2021-11-28] MEDS ORDERED: ACETAMINOPHEN 1,000 MG/100 ML VIAL IV PRN (19:18)
[2021-11-28 19:21] LABS: Troponin I High Sensitivity 30.7 pg/ml (0-20)
[2021-11-28 19:36] VITALS: BP 98/45; TEMP 98.6; O2SAT 90
[2021-11-28 20:09] LABS: Hemoglobin 8.3 g/dL (14.0-18.0); Mean Corpuscular Hemoglobin 29.3 pg (25-34); Mean Corpuscular Hgb Conc 34.6 g/dL (32-36); Mean Corpuscular Volume 84.8 fL (80-100); Nucleated RBC # (auto) 0.11 K/uL (0-0); Nucleated RBC % (auto) 4.4 %; Platelet Count 5 K/uL (130-400); RDW Coefficient of Variation 17.7 % (11.5-14.5); RDW Standard Deviation 53.1 fL (36.4-46.3); Red Blood Count 2.83 M/uL (4.7-6.1); White Blood Count 2.55 K/uL (4.8-10.8)
--- NOTE | 2021-11-28 20:27 | Death Pronouncement Note ---
Date of Service November 28, 2021 Pronouncement Note Admission Date November 26, 2021 Date and Time of Date of : 11/28/21 Time of : 20:17 Summary Per RN, patient asked to be helped to sit up in bed in order to urinate. Immediately became bradycardic and quickly . Patient was DNR/DNI, no code called. Additional Data Confirmation of : no pulse, no respirations, no heart sounds and pupils fixed and dilated Pronouncement Performed By: Resident Physician Family: contacted Attending/PCP notified?: No Attending physician: Jon Morales, DO Was code activated?: No
[2021-11-28 20:29] LABS: ALC (manual) 2.06 K/uL (1.2-3.4); ANC (manual) 0.08 K/uL (1.4-6.5); Anisocytosis Present; Basophils # (manual) 0.08 K/uL (0-0.2); Basophils % (manual) 3.2 %; Blast # (manual) 0.11 K/uL (0-0); Blast Cells % (manual) 4.3 %; Echinocytes 1+; Lymphocytes # (manual) 2.06 K/uL (1.2-3.4); Lymphocytes % (manual) 80.7 %; Monocytes # (manual) 0.22 K/uL (0.11-0.59); Monocytes % (manual) 8.6 %; Neutrophils # (manual) 0.08 K/uL (1.4-6.5); Neutrophils % (manual) 3.2 %; Polychromasia 1+
--- NOTE | 2021-11-28 22:14 | Electrocardiogram Report ---
Test Reason : Blood Pressure : / mmHG Vent. Rate : 084 BPM Atrial Rate : 084 BPM P-R Int : 146 ms QRS Dur : 084 ms QT Int : 376 ms P-R-T Axes : 016 027 -20 degrees QTc Int : 444 ms Normal sinus rhythm Anterior infarct (cited on or before 05-NOV-2021) Nonspecific T wave abnormality Abnormal ECG When compared with ECG of 26-NOV-2021 19:40, No significant change was found Confirmed by Mike Lima ([id number]) on 11/28/2021 10:13:52 PM Referred By: REFERRED SELF Confirmed By:Mike Lima
[2021-11-29 00:38] VITALS: PULSE 0
--- NOTE | 2021-11-29 07:01 | Discharge Summary ---
Date of Service November 29, 2021 Admission HPI Per Admitting Provider The patient is a 80-year-old male with a past medical history including hyponatremia, failure to thrive in adult, partial colectomy for ischemic bowel on 10/17/2021, hypertension, peritonitis, atrial fibrillation with RVR, atrial flutter, hypomagnesemia, hypokalemia, sepsis, PAD, cancer of true vocal cord, CAD, status post CABG, status post CVA, status post femoropopliteal bypass, prostate cancer, diabetes mellitus type 2, thrombocytopenia, macular degeneration, GERD, pancytopenia, and myelodysplastic syndrome. He presents to the emergency department with complaints of 10 days of lower abdominal pain, decreased oral intake and generalized weakness. CT scan of abdomen pelvis suggest mild inflammatory changes at the ileocolonic junction, the could represent recent surgery or localized colitis/enteritis. Significant laboratories: WBC 2.87, ANC 0.31, platelets 4, hemoglobin 10.0, hematocrit 29.6, sodium 129, glucose 211, INR 1.9, troponin 27.3 Admission Exam Per Admitting Provider The patient is awake, alert and oriented 3, well developed and well nourished, normocephalic and atraumatic, lying in bed and in no acute distress. HEENT--PERRL, EOMI, mucous membranes and oropharynx dry. Neck--supple. No JVD. No bruits. Thyroid normal, trachea midline, no adenopathy. Heart--normal S1 and S2. No murmurs, rubs or gallops. Lungs--clear bilaterally, no respiratory distress, no accessory muscle use. Abdomen--normal bowel sounds and soft. Tender right lower quadrant. Nondistended. Extremities--no cyanosis or clubbing. No edema. Dermatologic--normal skin turgor, normal color, no abnormal lymph nodes, no rash. Neurologic--cranial nerves II through XII grossly intact. Rheumatologic--limited exam Psychiatric--normal affect. Principal Diagnosis neutropenic sepsis Discharge Exam const: unmoving eyes: pupils fixed and dilated card: no pulse, no heart sounds pulm: no breath sounds Discharge Data Allergies Allergy/AdvReac Type Severity Reaction Status Date / Time clopidogrel Allergy Intermediate HIVES Verified 11/26/21 02:51 clarithromycin Allergy Mild UNKNOWN Verified 11/26/21 02:51 ezetimibe Allergy Mild UNKNOWN Verified 11/26/21 02:51 rosiglitazone Allergy Mild UNKNOWN Verified 11/26/21 02:51 rofecoxib Allergy Unknown UNKNOWN Verified 11/26/21 02:51 Iodinated Contrast Media AdvReac Intermediate SHAKY Verified 11/26/21 02:51 Consultations 11/26/21 04:49 ED Decision to Admit Stat 11/27/21 09:07 Consult Hematology Routine 11/28/21 14:16 Burn CD for patient Routine Ordered Studies 11/26/21 02:49 CT abd pelvis wo con Urgent 11/28/21 18:21 CT abd pelvis oral and IV con Stat Discharge Plan Discharge Items Patient Disposition: Discharge Diagnosis: high grade myelodysplastic syndrome with concern for progression to AML Addtl Attending Provider Instructions: 80 yo M Hx high grade MDS, DM2, CAD, GERD, HTN, HLD, AFib, partial colectomy for ischemic bowel on 10/17/2021 who was admitted for worsening weakness and abdominal pain with concern for neutropenic sepsis, and ultimately found to have concern for progression to AML. 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 Veronica/Federico at [facility]. -Has been having worsening pancytopenia with decrease from baseline 300k to 23k in 10/2021. -Has been receiving erythropoietin supplementation and transfusion support as needed. -Recently started on 5-azacytidine, 5 days of treatment 11/17-11/21/21. -Presented this admission with WBC count 2.87, ANC 0.31, plts 4, Hgb 10 with Hct 29.3, INR 1.9. -s/p plt transfusion x2, since that time plt trend 18 -> 13 -> 7. -Hgb stable since receiving 1u PRBCs for Hgb 7.3 -> now 8.9. -Tumor lysis syndrome labs negative for such. -Fibrinogen elevated, low likelihood of DIC. -Peripheral smear 11/27/21 revealed pancytopenia, myelodysplasia, and increasing circulating blasts with concern for progression to either MDS with excess blasts-2 or AML. -Patient desires aggressive active treatment of current disease. -Unable to get bone marrow biopsy until next week at our facility, therefore patient will be transferred to tertiary facility for bone marrow biopsy and consideration of induction therapy. - Overnight bradied down while being assisted to the restroom and . No code called due to DNR/DNI status. Other Date/Time: 11/29/21 06:59
[2021-11-29] MEDS ORDERED: VANCOMYCIN TROUGH ONE (11:30)
--- NOTE | 2021-11-29 16:41 | Discharge Summary ---
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 Discharge Data Allergies Allergy/AdvReac Type Severity Reaction Status Date / Time clopidogrel Allergy Intermediate HIVES Verified 11/26/21 02:51 clarithromycin Allergy Mild UNKNOWN Verified 11/26/21 02:51 ezetimibe Allergy Mild UNKNOWN Verified 11/26/21 02:51 rosiglitazone Allergy Mild UNKNOWN Verified 11/26/21 02:51 rofecoxib Allergy Unknown UNKNOWN Verified 11/26/21 02:51 Iodinated Contrast Media AdvReac Intermediate SHAKY Verified 11/26/21 02:51 Consultations 11/26/21 04:49 ED Decision to Admit Stat 11/27/21 09:07 Consult Hematology Routine 11/28/21 14:16 Burn CD for patient Routine Ordered Studies 11/26/21 02:49 CT abd pelvis wo con Urgent 11/28/21 18:21 CT abd pelvis oral and IV con Stat Hospital Course (1) Cardiac arrest: When going to the bathroom, had sudden bradycardia to asystole and arrested. -Only a few hours prior to passing, patient had abrupt onset of 10 out of 10 abdominal pain, extensive lab work-up without much yield, he was actually about to go for CT with IV and p.o. contrast to evaluate the etiology of his pain when he passed. (Had reassuring but noncontrast CT at time of admission, throughout the day on day of passing had multiple abdominal exams the first several of which showed a mild degree of right lower/middle abdominal tenderness without guarding/rebound/rigidity, the last exam prior to all of the events showed diffuse abdominal tenderness again without guarding/rebound/rigidity) (2) Neutropenia associated with infection: No identified source of infection, decreased energy more likely to be associated with progression of AML However, given his general lack of immune system/lack of immune reserve, was on broad empiric antibiotics until it would have been clear there was no infection at play (3) Myelodysplastic syndrome: High grade MDS, pancytopenia: -History of MDS with ringed sideroblasts diagnosed 04/2021, 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 Veronica/Everette at [facility]. -Has been having worsening pancytopenia with decrease from baseline 300k to 23k in 10/2021. -Has been receiving erythropoietin supplementation and transfusion support as needed. -Recently started on 5-azacytidine, 5 days of treatment 11/17-11/21/21. -Presented this admission with WBC count 2.87, ANC 0.31, plts 4, Hgb 10 with Hct 29.3, INR 1.9. -s/p plt transfusion x2, since that time plt trend 18 -> 13 -> 7. -Hgb stable since receiving 1u PRBCs for Hgb 7.3 -> now 8.9. -Tumor lysis syndrome labs negative for such. -Fibrinogen elevated, low likelihood of DIC. -Peripheral smear 11/27/21 revealed pancytopenia, myelodysplasia, and increasing circulating blasts with concern for progression to either MDS with excess blasts-2 or AML. -Patient desired aggressive active treatment of current disease. -Unable to get bone marrow biopsy until next week at our facility, therefore patient will be transferred to tertiary facility for bone marrow biopsy and consideration of induction therapy. (4) Elevated troponin: Down from 41 to 34, likely stress related rather than AR in etiology (5) Diabetes mellitus type 2 in obese: (6) Failure to thrive in adult: Head a long run of chronic illness, including a recent very long hospital stay including emergency abdominal surgery/peritonitis, and had noted that he was not doing well with eating and drinking at home (7) Heme positive stool: Etiology likely due to his recent surgeries rather than a significant bleed and his decreased hemoglobin is more likely to be due to his myelodysplastic syndrome and possible evolution. 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 Other Date/Time: 11/29/21 06:59 Coding Level of Care Code None Diagnoses Neutropenia associated with infection D70.3 Myelodysplastic syndrome D46.9 Elevated troponin R77.8 Diabetes mellitus type 2 in obese E11.69; E66.9 Failure to thrive in adult R62.7 Heme positive stool R19.5 Cardiac arrest I46.9
== END 2021-11-28 22:34 | disposition expired | DRG 872 ==
LOC: ED 02:10 → EDINP 05:04 → SUATTDRO 05:04 → 2N 12:16 → 1E 11-28 20:11